=== PATIENT | male | born 1940 | race Caucasian/White ===

== ENCOUNTER 2020-04-13 07:04 | Outpatient (REF) | payer MEDICARE, SELFPAY | END 2020-04-13 07:05 | disposition home or self-care (01) | LOC: HO.LAB 07:04 | PROVIDERS: Visit Provider Internal Medicine | DX: Z20.828 Contact with and (suspected) exposure to other viral communicable diseases (principal) | CPT/HCPCS: C9803; U0003 ==

== ENCOUNTER → 2020-06-28 10:11 | Outpatient (BNVA) | payer MEDICARE, SELFPAY | PROVIDERS: PCP Internal Medicine; Visit Provider Internal Medicine Pulmonary Disease ==

== ENCOUNTER 2020-06-28 10:30 | Outpatient (REF) | payer MEDICARE, SELFPAY ==
[2020-06-28 10:51] LABS: MANUAL DIFF FLAG NO
[2020-06-28 11:33] LABS: Glucose Urine UA NEG (NEG); Leukocyte Esterase Urine NEG (NEG); Nitrite Urine NEG (NEG); Specific Gravity - Urine 1.025 (1.005-1.025); Urine Blood TRACE (NEG); Urine Ketones NEG (NEG); Urine Protein NEG (NEG-TRACE)
[2020-06-28 11:41] LABS: Basophils Absolute Auto 0.1 X10*3/uL (0.0-0.2); Basophils Percent Auto 0.8 % (0-2); Eosinophils Absolute Auto 0.3 X10*3/uL (0.0-0.4); Eosinophils Percent Auto 4.3 % (0-4); Hematocrit 46.7 % (42-52); Hemoglobin 15.2 g/dl (14.0-18.0); Imm Gran Abs Auto 0.01 X10*3/uL (0.00-0.03); Imm Gran Pct Auto 0.1 % (0.0-0.4); Lymphocytes Absolute Auto 3.1 X10*3/uL (1.2-4.9); Mean Corpuscular HGB Conc 32.5 g/dl (31.0-36.0); Mean Corpuscular Hemoglobin 30.5 pg (27.0-33.0); Mean Corpuscular Volume 93.6 fL (80-98); Mean Platelet Volume 10.5 fL (9.4-12.4); Monocytes Absolute Auto 0.7 X10*3/uL (0.1-1.2); Monocytes Percent Auto 8.8 % (2-11); Neutrophils Absolute Auto 3.7 X10*3/uL (2.0-8.3); Platelet Count 238 X10*3/uL (160-400); Red Blood Count 4.99 X10*6/uL (4.60-5.80); Red Cell Distribution Width 13.5 % (11.0-16.0); White Blood Count 7.9 X10*3/uL (4.8-10.8)
[2020-06-28 11:49] LABS: Appearance Urine CLEAR; Color Urine YELLOW
[2020-06-28 12:00] LABS: RBC Urine 0-2 /HPF (0); WBC Urine 0-2 /HPF (0-4)
[2020-06-28 12:01] LABS: Mucus Urine 1+ /LPF
[2020-06-28 12:05] LABS: Alanine Aminotransferase 17 U/L (0-40); Albumin Level 4.5 g/dL (3.5-5.0); Alkaline Phosphatase 76 U/L (39-117); Anion Gap 14 (12-20); Aspartate Amino Transferase 19 U/L (5-37); Bilirubin Total 0.7 mg/dL (0.0-1.0); Blood Urea Nitrogen 24 mg/dL (9-16); Calcium 9.3 mg/dL (8.4-10.2); Carbon Dioxide 29 mmol/L (22-29); Chloride 104 mmol/L (96-108); Cholesterol 127 mg/dL; Estimated Glomerular Filt Rate > 60; HDL Cholesterol 56 mg/dL; LDL Cholesterol Calculated 60 mg/dl; Potassium 4.5 mmol/L (3.3-5.1); Sodium 142 mmol/L (135-145); Total Protein 7.1 g/dL (6.5-8.0); Triglycerides 56 mg/dL
[2020-06-28 12:26] LABS: PSA,Total (Free>4and<10) 0.41 ng/mL (0.00-4.00)
[2020-06-28 12:34] LABS: Reflex LDLD? No
[2020-06-28 12:50] LABS: Glucose Fasting 100 mg/dL (60-99)
== END 2020-06-28 10:31 | disposition home or self-care (01) ==
LOC: HO.LNP 10:30
PROVIDERS: Visit Provider Internal Medicine
DX: Z12.5 Encounter for screening for malignant neoplasm of prostate (principal); R06.00 Dyspnea, unspecified; J45.20 Mild intermittent asthma, uncomplicated; E78.00 Pure hypercholesterolemia, unspecified; R79.9 Abnormal finding of blood chemistry, unspecified; R31.9 Hematuria, unspecified; I73.9 Peripheral vascular disease, unspecified
CPT/HCPCS: 80053; 80061; 81001; 81003; 84153; 85025; 99212

== ENCOUNTER → 2020-08-18 09:19 | Outpatient (REF) | payer MEDICARE, SELFPAY ==
--- NOTE | 2020-08-18 09:22 | CA_ITS ---
Transthoracic Echocardiogram Patient (Last, First, Middle): Nakul Aguilera J Gender: Male Date of : 1940 Age: 79 Procedure Date: 08/18/2020 Procedure Type: Transthoracic Echocardiogram Location: OP Height: 187.96 cm Weight: 112.04 kg BSA: 2.38 m2 Heart Rate: bpm BP: 110 / 70 mmHg Pouch Maker: BLANCA Referring MD: Tyrone Escamilla MD Symptoms: R06.00 - Dyspnea, unspecified Study Quality: Fair ECG Rhythm: Sinus Conclusions: - The left ventricular systolic function is normal. The visually estimated ejection fraction is between 60-65%. - No obvious valvular pathology seen on this study. Findings Left Ventricle Normal left ventricular cavity size. There is mildly increased left ventricular wall thickness. The left ventricular systolic function is normal. The visually estimated ejection fraction is between 60-65%. There is no evidence of regional wall motion abnormalities. Diastolic function is normal for age. Right Ventricle Normal right ventricular cavity size and systolic function. Atria Both atria are normal in size. Aortic Valve There is a normal trileaflet aortic valve. There is no aortic valve stenosis. There is trace (trivial) aortic valve regurgitation. Mitral Valve The mitral valve appears normal. There is no mitral valve regurgitation. There is no mitral valve stenosis. Pulmonic Valve The pulmonic valve was not well visualized. Tricuspid Valve The tricuspid valve was not well visualized. There is trace tricuspid valve regurgitation. The pulmonary artery systolic pressure is normal. Great Vessels The aortic annulus, sinuses of valsalva, and asc aorta are normal in size. Venous The inferior vena cava is normal in size and collapses greater than 50% with inspiration. Pericardium/Pleural There is no evidence of pericardial effusion. Prior Study Comparison No prior study available for comparison. Recommendations, Care & Conclusions No obvious valvular pathology seen on this study. Measurements 2D Linear Measurements IVSd: 1.01 0.6-0.9/0.6-1.0 cm LVIDd: 3.95 3.9-5.3/4.2-5.9 cm LVIDd Index: 1.66 2.4-3.2/2.2-3.1 cm/m2 LVIDs: 2.59 2.0-3.6 cm LVPWd: 1.04 0.7-1.1 cm Ao Root: 3.60 2.1-3.5 cm LA Diam: 3.60 2.7-3.8/3.0-4.0 cm LAIDs Index: 1.51 1.5-2.3 cm/m2 LV Mass: 160.54 67-162/88-224 g LV Mass Index: 67.46 43-95/49-115 g/m2 LVOT Diam: 2.20 3.0+(-)1.3 cm 2D Systolic Function EF 4C: 67.70 >55% EF 2C: 59.00 >55% EF BiP: 63.50 >55% Mitral Valve MV Pk E: 0.55 MV PK A: 0.79 MV Decel Time: 310.00 E/A: 0.70 E'Lateral: 9.19 E'Medial: 7.16 E/E' Med: 7.70 E/E' Lat: 6.00 PHT: 91.00 MVA PHT: 2.42 Decel Taney: 1.78 Aortic Valve AoV Pk Vinod: 1.48 AoV Mn Vinod: 1.00 AoV VTI: 0.33 AoV Pk Grad: 9.00 Aov Mn Grad: 4.00 VESTA Cont.VTI: 3.02 LVOT LVOT Pk Vinod: 1.12 LVOT Mn Vinod: 0.69 LVOT VTI: 0.26 LVOT Pk Grad: 5.00 LVOT Mn Grad: 2.00 LVOT Diam: 2.20 LVOT Area: 3.80 Diastolic Function MV Pk E: 0.55 MV Pk A: 0.79 E/A: 0.70 E'Medial: 7.16 E/E' Med: 7.70 E' Laterial: 9.19 E/E' Lat: 6.00 Tricuspid Valve TR Pk Vinod: 2.58 TR Pk Grad: 27.00 RA Press: 3.00 RVSP: 30.00 Great Vessels Aorta Ao Root-2D: 3.60 2.0-3.7 cm Ao Asc: 3.20 2.1-3.4 cm Updated in Other Vendor System with Status of Final Brett Quintanilla MD electronically signed on 08/19/2020 2:53:43 PM with status of Final
== END ==
LOC: HO.CARD 09:19
PROVIDERS: PCP Internal Medicine; Visit Provider Internal Medicine Pulmonary Disease
DX: R06.00 Dyspnea, unspecified (principal)
CPT/HCPCS: 93306

== ENCOUNTER → 2020-08-30 11:33 | Outpatient (BNVA) | payer MEDICARE, SELFPAY | PROVIDERS: PCP Internal Medicine; Visit Provider Internal Medicine Pulmonary Disease | DX: J45.20 Mild intermittent asthma, uncomplicated (principal); R06.00 Dyspnea, unspecified | CPT/HCPCS: 99212 ==

== ENCOUNTER 2021-01-12 10:25 | Outpatient (REF) | payer MEDICARE, SELFPAY ==
[2021-01-12 11:57] LABS: Alanine Aminotransferase 18 U/L (0-40); Albumin Level 4.5 g/dL (3.5-5.0); Alkaline Phosphatase 74 U/L (39-117); Aspartate Amino Transferase 19 U/L (5-37); Bilirubin Direct 0.3 mg/dL (0.0-0.5); Bilirubin Total 0.8 mg/dL (0.0-1.0); Cholesterol 133 mg/dL; HDL Cholesterol 59 mg/dL; LDL Cholesterol Calculated 61 mg/dl; Total Protein 7.1 g/dL (6.5-8.0); Triglycerides 65 mg/dL
[2021-01-12 12:13] LABS: Reflex LDLD? No
== END 2021-01-12 10:26 | disposition home or self-care (01) ==
LOC: HO.LNP 10:25
PROVIDERS: Visit Provider Internal Medicine
DX: E78.00 Pure hypercholesterolemia, unspecified (principal)
CPT/HCPCS: 80061; 80076

== ENCOUNTER 2021-06-29 11:19 | Outpatient (REF) | payer MEDICARE, SELFPAY ==
[2021-06-29 11:24] LABS: MANUAL DIFF FLAG NO
[2021-06-29 12:07] LABS: Basophils Absolute Auto 0.1 X10*3/uL (0.0-0.2); Basophils Percent Auto 0.9 % (0-2); Eosinophils Absolute Auto 0.3 X10*3/uL (0.0-0.4); Eosinophils Percent Auto 2.7 % (0-4); Hematocrit 46.7 % (42.0-52.0); Hemoglobin 15.2 g/dl (14.0-18.0); Imm Gran Abs Auto 0.03 X10*3/uL (0.00-0.03); Imm Gran Pct Auto 0.3 % (0.0-0.4); Lymphocytes Absolute Auto 3.3 X10*3/uL (1.2-4.9); Mean Corpuscular HGB Conc 32.5 g/dl (31.0-36.0); Mean Corpuscular Hemoglobin 30.2 pg (27.0-33.0); Mean Corpuscular Volume 92.8 fL (80.0-98.0); Mean Platelet Volume 10.5 fL (9.4-12.4); Monocytes Absolute Auto 0.8 X10*3/uL (0.1-1.2); Monocytes Percent Auto 7.9 % (2-11); Neutrophils Absolute Auto 5.8 x10*3/uL (2.0-8.3); Neutrophils Percent Auto 56.2 % (45-73); Platelet Count 259 X10*3/uL (160-400); Red Blood Count 5.03 X10*6/uL (4.60-5.80); Red Cell Distribution Width 14.1 % (11.0-16.0); White Blood Count 10.3 X10*3/uL (4.8-10.8)
[2021-06-29 12:27] LABS: Alanine Aminotransferase 13 U/L (0-40); Albumin Level 4.6 g/dL (3.5-5.0); Alkaline Phosphatase 75 U/L (39-117); Anion Gap 14 (12-20); Aspartate Amino Transferase 21 U/L (5-37); Bilirubin Total 0.9 mg/dL (0.0-1.0); Blood Urea Nitrogen 28 mg/dL (9-16); Calcium 9.8 mg/dL (8.4-10.2); Carbon Dioxide 29 mmol/L (22-29); Chloride 103 mmol/L (96-108); Cholesterol 177 mg/dL; Estimated Glomerular Filt Rate > 60; Glucose Fasting 94 mg/dL (60-99); HDL Cholesterol 61 mg/dL; LDL Cholesterol Calculated 101 mg/dl; Potassium 4.2 mmol/L (3.3-5.1); Sodium 142 mmol/L (135-145); Total Protein 6.8 g/dL (6.5-8.0); Triglycerides 79 mg/dL
[2021-06-29 12:40] LABS: PSA,Total (Free>4and<10) 0.44 ng/mL (0.00-4.00)
== END 2021-06-29 11:20 | disposition home or self-care (01) ==
LOC: HO.LNP 11:19
PROVIDERS: PCP Internal Medicine; Visit Provider Internal Medicine
DX: Z12.5 Encounter for screening for malignant neoplasm of prostate (principal); E78.00 Pure hypercholesterolemia, unspecified; R31.9 Hematuria, unspecified
CPT/HCPCS: 80053; 80061; 84153; 85025

== ENCOUNTER 2021-07-07 15:10 | Outpatient (REF) | payer MEDICARE, SELFPAY ==
[2021-07-07 15:27] LABS: Appearance Urine CLEAR; Color Urine YELLOW; Glucose Urine UA NEG (NEG); Leukocyte Esterase Urine NEG (NEG); Nitrite Urine NEG (NEG); Specific Gravity - Urine >= 1.030 (1.005-1.025); Urine Blood NEG (NEG); Urine Ketones NEG (NEG); Urine Protein NEG (NEG-TRACE)
[2021-07-07 15:36] LABS: RBC Urine 0 /HPF (0); WBC Urine 0-2 /HPF (0-4)
== END 2021-07-07 15:11 | disposition home or self-care (01) ==
LOC: HO.LNP 15:10
PROVIDERS: Visit Provider Internal Medicine
DX: R31.9 Hematuria, unspecified (principal); E78.00 Pure hypercholesterolemia, unspecified
CPT/HCPCS: 81001; 87086

== ENCOUNTER 2021-10-09 10:44 | Outpatient (REF) | payer MEDICARE, SELFPAY ==
[2021-10-09 11:17] LABS: Blood Urea Nitrogen 29 mg/dL (9-16); Estimated Glomerular Filt Rate > 60
== END 2021-10-09 10:45 | disposition home or self-care (01) ==
LOC: HO.LNP 10:44
PROVIDERS: Visit Provider Internal Medicine
DX: R79.9 Abnormal finding of blood chemistry, unspecified (principal)
CPT/HCPCS: 82565; 84520

== ENCOUNTER 2022-01-09 10:36 | Outpatient (REF) | payer MEDICARE, SELFPAY ==
[2022-01-09 10:58] LABS: Alanine Aminotransferase 17 U/L (0-40); Albumin Level 4.2 g/dL (3.5-5.0); Alkaline Phosphatase 64 U/L (39-117); Aspartate Amino Transferase 21 U/L (5-37); Bilirubin Direct 0.2 mg/dL (0.0-0.5); Bilirubin Total 0.5 mg/dL (0.0-1.0); Cholesterol 159 mg/dL; HDL Cholesterol 51 mg/dL; LDL Cholesterol Calculated 89 mg/dl; Total Protein 6.7 g/dL (6.5-8.0); Triglycerides 96 mg/dL
[2022-01-09 12:40] LABS: Reflex LDLD? No
== END 2022-01-09 10:37 | disposition home or self-care (01) ==
LOC: HO.LNP 10:36
PROVIDERS: Visit Provider Internal Medicine
DX: E78.00 Pure hypercholesterolemia, unspecified (principal)
CPT/HCPCS: 80061; 80076

== ENCOUNTER 2022-02-28 15:15 | Outpatient (REF) | payer MEDICARE, SELFPAY ==
--- NOTE | ~2022-02-28 | US_ITS ---
EXAMINATION: US EXTRACRANIAL CAROTID DUPLEX, BILATERAL CLINICAL INFORMATION: Carotid stenosis COMPARISON: 12/29/2018 TECHNIQUE: Real-time ultrasound and Doppler techniques (integrating B-mode 2-D vascular images, Doppler spectral analysis and color-flow Doppler imaging) were utilized to interrogate the extracranial carotid arteries, the vertebral arteries and proximal subclavian arteries bilaterally. The degree of stenosis is determined by criteria similar to NASCET. FINDINGS: Right Side: 1. There is mild atherosclerotic plaque seen in the bifurcation/proximal ICA region. 2. The common carotid artery PSV proximally is 99.3 cm/s and distally 71.9 cm/s. 3. The proximal internal carotid artery velocities are 71.3 cm/s systolic and 26.3 cm/s diastolic. 4. The proximal external carotid artery PSV is 98.2 cm/s. 5. The vertebral artery shows antegrade flow. 6. The subclavian artery waveforms are normal. Left Side: 1. There is mild atherosclerotic plaque seen in the bifurcation/proximal ICA region. 2. The common carotid artery PSV proximally is 96.2 cm/s and distally 68.0 cm/s. 3. The proximal internal carotid artery velocities are 60.9 cm/s systolic and 13.3 cm/s diastolic. 4. The proximal external carotid artery PSV is 95.7 cm/s. 5. The vertebral artery shows antegrade flow. 6. The subclavian artery waveforms are normal. US/US carotid duplex BI IMPRESSION: 1. RIGHT: Minimal, non-hemodynamically significant stenosis of the proximal right internal carotid artery corresponding to a 0-49% stenosis by velocity criteria. 2. LEFT: Minimal, non-hemodynamically significant stenosis of the proximal left internal carotid artery corresponding to a 0-49% stenosis by velocity criteria. 3. There is no change in the category severity of disease when compared to the previous study dated 12/29/2018.
== END 2022-02-28 15:16 | disposition home or self-care (01) ==
LOC: HO.US 15:15
PROVIDERS: PCP Internal Medicine; Visit Provider Internal Medicine
DX: I65.23 Occlusion and stenosis of bilateral carotid arteries (principal)
CPT/HCPCS: 93880

== ENCOUNTER 2022-04-17 10:57 | Outpatient (REF) | payer MEDICARE, SELFPAY ==
[2022-04-17 12:27] LABS: Blood Urea Nitrogen 21 mg/dL (9-16); Estimated Glomerular Filt Rate > 60
== END 2022-04-17 10:58 | disposition home or self-care (01) ==
LOC: HO.LNP 10:57
PROVIDERS: Visit Provider Internal Medicine
DX: R79.9 Abnormal finding of blood chemistry, unspecified (principal)
CPT/HCPCS: 82565; 84520

== ENCOUNTER 2022-07-06 11:22 | Outpatient (REF) | payer MEDICARE, SELFPAY ==
[2022-07-06 11:26] LABS: MANUAL DIFF FLAG NO
[2022-07-06 11:55] LABS: Appearance Urine Clear; Color Urine Yellow; Glucose Urine UA Negative (Negative); Leukocyte Esterase Urine Negative (Negative); Nitrite Urine Negative (Negative); Specific Gravity - Urine 1.025 (1.005-1.025); Urine Blood Negative (Negative); Urine Ketones Negative (Negative); Urine Protein Negative (Neg-Trace)
[2022-07-06 11:59] LABS: Basophils Absolute Auto 0.1 X10*3/uL (0.0-0.2); Basophils Percent Auto 0.8 % (0-2); Eosinophils Absolute Auto 0.4 X10*3/uL (0.0-0.4); Eosinophils Percent Auto 4.4 % (0-4); Hematocrit 46.5 % (42.0-52.0); Hemoglobin 15.4 g/dl (14.0-18.0); Imm Gran Abs Auto 0.01 X10*3/uL (0.00-0.03); Imm Gran Pct Auto 0.1 % (0.0-0.4); Lymphocytes Percent Auto 34.2 % (20-40); Mean Corpuscular HGB Conc 33.1 g/dl (31.0-36.0); Mean Corpuscular Hemoglobin 30.3 pg (27.0-33.0); Mean Corpuscular Volume 91.4 fL (80.0-98.0); Mean Platelet Volume 10.8 fL (9.4-12.4); Monocytes Absolute Auto 0.7 X10*3/uL (0.1-1.2); Monocytes Percent Auto 7.8 % (2-11); Neutrophils Absolute Auto 4.6 x10*3/uL (2.0-8.3); Neutrophils Percent Auto 52.7 % (45-73); Platelet Count 231 X10*3/uL (160-400); Red Blood Count 5.09 X10*6/uL (4.60-5.80); Red Cell Distribution Width 13.3 % (11.0-16.0); White Blood Count 8.8 X10*3/uL (4.8-10.8)
[2022-07-06 12:00] LABS: Bacteria Urine None Seen (None Seen); Hyaline Casts Urine 0-2 /LPF (0-2); RBC Urine 0-2 /HPF (0-2); Squamous Epithelial Cell Urine 0-2 /HPF (0-2); WBC Urine 0-5 /HPF (0-5)
[2022-07-06 12:31] LABS: Alanine Aminotransferase 11 U/L (0-40); Albumin Level 4.3 g/dL (3.5-5.0); Alkaline Phosphatase 73 U/L (39-117); Anion Gap 12 (12-20); Aspartate Amino Transferase 18 U/L (5-37); Blood Urea Nitrogen 28 mg/dL (9-16); Calcium 9.1 mg/dL (8.4-10.2); Carbon Dioxide 30 mmol/L (22-29); Chloride 104 mmol/L (96-108); Cholesterol 146 mg/dL; Estimated Glomerular Filt Rate > 60; Glucose Fasting 96 mg/dL (60-99); HDL Cholesterol 56 mg/dL; LDL Cholesterol Calculated 79 mg/dl; Potassium 4.1 mmol/L (3.3-5.1); Sodium 142 mmol/L (135-145); Total Protein 6.6 g/dL (6.5-8.0); Triglycerides 55 mg/dL
== END 2022-07-06 11:23 | disposition home or self-care (01) ==
LOC: HO.LNP 11:22
PROVIDERS: Visit Provider Internal Medicine
DX: R31.9 Hematuria, unspecified (principal); E78.00 Pure hypercholesterolemia, unspecified; Z12.5 Encounter for screening for malignant neoplasm of prostate
CPT/HCPCS: 80053; 80061; 81001; 84153; 85025

== ENCOUNTER 2022-08-13 10:32 | Outpatient (REF) | payer MEDICARE, SELFPAY ==
[2022-08-13 11:12] LABS: Blood Urea Nitrogen 23 mg/dL (9-16); Estimated Glomerular Filt Rate > 60
== END 2022-08-13 10:33 | disposition home or self-care (01) ==
LOC: HO.LNP 10:32
PROVIDERS: Visit Provider Internal Medicine
DX: R79.9 Abnormal finding of blood chemistry, unspecified (principal)
CPT/HCPCS: 82565; 84520

== ENCOUNTER 2023-02-13 10:11 | Outpatient (AMB) | payer MEDICARE, SELFPAY ==
[2023-02-13 10:27] VITALS: BP 112/60; PULSE 75; TEMP 36.6; O2SAT 95; BMI 28.6
--- NOTE | 2023-02-13 10:27 | MHC.OFFWIV ---
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 Patient Tobacco Use Status: Former Tobacco user Allergies No Known Allergies Allergy (Verified 02/13/23 10:31) Do you need a note to return to daycare/school/sports/work: No HPI HPI Comments History of Present Illness Details This is an 82-year-old male with past medical history of hyperlipidemia presenting for evaluation of a cough and chest congestion that he has had for the past 1 week. Patient is not taking any ltgo-hji-wonxcec medications for treatment of his symptoms and states his cough is mostly during the day. Patient denies having any fevers, chills, ear pain, sore throat, difficulty swallowing, shortness of breath or chest pain. Patient is not aware of his COVID vaccine status and has not yet received his influenza immunization this year. [facility] Social History (Updated 06/28/20 @ 10:23 by Kiarra Little MA) Patient Tobacco Use Status: Former Tobacco user Review of Systems Const Denies chills, Denies fatigue, Denies fever(s) and Denies malaise Eyes Reports no additional complaints ENT Reports no additional complaints Card Reports no additional complaints and Denies dyspnea Resp Reports cough and Denies dyspnea GI Reports no additional complaints Musc Reports no additional complaints Skin/Breast Reports system reviewed and no additional complaints, except as documented Psych Reports no additional complaints Endo Denies fatigue Physical Exam Vital Signs: Last Vital Signs Temp 98 F 02/13/23 10:27 Pulse 75 02/13/23 10:27 BP 112/60 02/13/23 10:27 Pulse Ox 95 02/13/23 10:27 Oxygen Delivery Method Room Air 02/13/23 10:27 BMI result Body Mass Index 28.6 Patient is afebrile and is not hypoxic. Const General: cooperative, healthy appearing, comfortable, no acute distress and well developed; No ill appearing Nutritional Appearance: average body habitus Orientation/consciousness: patient oriented x3 Limitations: no limitations HEENT Head: Yes normal to inspection Ears: hearing grossly normal bilaterally, external ears normal and TM's normal bilaterally General nose exam: Normal external nose present and No nasal discharge present Face and sinus: Yes normal facial exam Mouth: Normal oral and palatal mucosa present, oropharynx normal and moist mucous membranes Throat: Yes posterior oropharynx normal Eyes General: appearance normal, both eyes and all related structures Conjunctivae: conjunctivae normal Sclerae: sclerae normal Corneas: corneas normal Pupils: Equal, round and reactive pupils present EOM: EOMs intact bilaterally Neck Lymphatic: no lymphadenopathy noted Resp Effort & Inspection: normal respiratory effort, able to speak in complete sentences, no audible wheezes and no respiratory distress Auscultation: clear to auscultation bilaterally Cardio Rate: regular rate Rhythm: regular rhythm Skin General skin exam: no rashes or lesions noted Neuro General: patient oriented x3 Cranial nerves: Yes Equal, round and reactive pupils present Psych Appearance: grossly normal Mental Status: mental status grossly normal Insight: Good insight present (Psych) Judgement: Good judgement present (Psych) Results Reviewed Results Reviewed: Testing for COVID-19 is negative. Assessment & Plan Assessment & Plan (1) Cough: Comment: COVID 19 ordered and pending. Code(s): R05.9 - Cough, unspecified Orders: Orders BinaxNOW Covid-19 Ag Today R05.9 - Cough, unspecified Patient Instructions: Negative testing; Tylenol or ibuprofen as needed for symptom relief and increase fluids daily. Please follow-up with primary care within 7 days if your symptoms do not resolve. Coding Level of Care Code New Pt Level 4 (20699) Diagnoses Cough R05.9 Time Spent (min) 20
== END 2023-02-13 11:21 | disposition home or self-care (01) ==
PROVIDERS: PCP Internal Medicine; Visit Provider Physician Assistant
DX: R05.9 Cough, unspecified (principal)
CPT/HCPCS: 99204

== ENCOUNTER 2023-02-13 11:00 | Outpatient (REF) | payer MEDICARE, SELFPAY ==
[2023-02-13 11:34] LABS: Binax Internal Control QC Valid; Binax Now Covid-19 Ag Negative (Negative)
== END 2023-02-13 11:01 | disposition home or self-care (01) ==
LOC: HO.HMGCLDS 11:00
PROVIDERS: PCP Internal Medicine; Visit Provider Physician Assistant
DX: R05.9 Cough, unspecified (principal)
CPT/HCPCS: 87811; C9803

== ENCOUNTER 2023-07-09 11:36 | Outpatient (REF) | payer MEDICARE, SELFPAY ==
[2023-07-09 11:38] LABS: MANUAL DIFF FLAG NO
[2023-07-09 12:00] LABS: Basophils Absolute Auto 0.1 X10*3/uL (0.0-0.2); Basophils Percent Auto 0.7 % (0-2); Eosinophils Absolute Auto 0.4 X10*3/uL (0.0-0.4); Eosinophils Percent Auto 4.7 % (0-4); Hematocrit 46.8 % (42.0-52.0); Hemoglobin 15.3 g/dl (14.0-18.0); Imm Gran Abs Auto 0.02 X10*3/uL (0.00-0.03); Imm Gran Pct Auto 0.2 % (0.0-0.4); Lymphocytes Absolute Auto 3.2 X10*3/uL (1.2-4.9); Mean Corpuscular HGB Conc 32.7 g/dl (31.0-36.0); Mean Corpuscular Hemoglobin 30.2 pg (27.0-33.0); Mean Corpuscular Volume 92.3 fL (80.0-98.0); Mean Platelet Volume 9.9 fL (9.4-12.4); Monocytes Absolute Auto 0.7 X10*3/uL (0.1-1.2); Monocytes Percent Auto 8.6 % (2-11); Neutrophils Absolute Auto 4.2 x10*3/uL (2.0-8.3); Neutrophils Percent Auto 48.8 % (45-73); Platelet Count 261 X10*3/uL (160-400); Red Blood Count 5.07 X10*6/uL (4.60-5.80); Red Cell Distribution Width 13.4 % (11.0-16.0); White Blood Count 8.5 X10*3/uL (4.8-10.8)
[2023-07-09 12:07] LABS: Appearance Urine Clear; Color Urine Yellow; Glucose Urine UA Negative (Negative); Leukocyte Esterase Urine Negative (Negative); Nitrite Urine Negative (Negative); PH 5.5 (5.0-9.0); Specific Gravity - Urine 1.025 (1.005-1.025); Urine Blood Negative (Negative); Urine Ketones Negative (Negative); Urine Protein Negative (Neg-Trace)
[2023-07-09 12:10] LABS: Alanine Aminotransferase 13 U/L (0-40); Albumin Level 4.3 g/dL (3.5-5.0); Alkaline Phosphatase 70 U/L (39-117); Anion Gap 12 (12-20); Aspartate Amino Transferase 21 U/L (5-37); Bilirubin Total 0.5 mg/dL (0.0-1.0); Blood Urea Nitrogen 21 mg/dL (9-16); Calcium 9.5 mg/dL (8.4-10.2); Carbon Dioxide 28 mmol/L (22-29); Chloride 106 mmol/L (96-108); Cholesterol 136 mg/dL (<200); Estimated Glomerular Filt Rate > 60; Glucose Fasting 101 mg/dL (60-99); HDL Cholesterol 57 mg/dL (>40); LDL Cholesterol Calculated 65 mg/dL (<100); Potassium 4.1 mmol/L (3.3-5.1); Sodium 142 mmol/L (135-145); Total Protein 7.1 g/dL (6.5-8.0); Triglycerides 73 mg/dL (<150)
[2023-07-09 12:11] LABS: Bacteria Urine None Seen (None Seen); Hyaline Casts Urine 0-2 /LPF (0-2); RBC Urine 0-2 /HPF (0-2); Squamous Epithelial Cell Urine 0-2 /HPF (0-2); WBC Urine 0-5 /HPF (0-5)
[2023-07-09 12:26] LABS: PSA,Total (Free>4and<10) 0.44 ng/mL (0.00-4.00)
== END 2023-07-09 11:37 | disposition home or self-care (01) ==
LOC: HO.LNP 11:36
PROVIDERS: Visit Provider Internal Medicine
DX: Z12.5 Encounter for screening for malignant neoplasm of prostate (principal); E78.00 Pure hypercholesterolemia, unspecified
CPT/HCPCS: 80053; 80061; 81001; 84153; 85025

== ENCOUNTER 2024-01-16 11:58 | Outpatient (REF) | payer MEDICARE, SELFPAY ==
[2024-01-16 12:23] LABS: Alanine Aminotransferase 15 U/L (0-40); Albumin Level 4.4 g/dL (3.5-5.0); Alkaline Phosphatase 62 U/L (39-117); Aspartate Amino Transferase 22 U/L (5-37); Bilirubin Direct 0.2 mg/dL (0.0-0.5); Bilirubin Total 0.6 mg/dL (0.0-1.0); Cholesterol 135 mg/dL (<200); HDL Cholesterol 59 mg/dL (>40); LDL Cholesterol Calculated 64 mg/dL (<100); Triglycerides 61 mg/dL (<150)
[2024-01-16 12:50] LABS: Reflex LDLD? No
== END 2024-01-16 11:59 | disposition home or self-care (01) ==
LOC: HO.LNP 11:58
PROVIDERS: Visit Provider Internal Medicine
DX: E78.00 Pure hypercholesterolemia, unspecified (principal)
CPT/HCPCS: 80061; 80076

== ENCOUNTER 2024-07-13 11:53 | Outpatient (REF) | payer MEDICARE, SELFPAY ==
[2024-07-13 11:57] LABS: MANUAL DIFF FLAG NO
[2024-07-13 12:24] LABS: Appearance Urine Clear; Color Urine Yellow; Glucose Urine UA Negative (Negative); Leukocyte Esterase Urine Negative (Negative); Nitrite Urine Negative (Negative); PH 5.5 (5.0-9.0); Specific Gravity - Urine 1.025 (1.005-1.025); Urine Blood Negative (Negative); Urine Ketones Negative (Negative); Urine Protein Negative (Neg-Trace)
[2024-07-13 12:25] LABS: Basophils Absolute Auto 0.1 X10*3/uL (0.0-0.2); Eosinophils Absolute Auto 0.4 X10*3/uL (0.0-0.4); Eosinophils Percent Auto 4.6 % (0-4); Hematocrit 45.4 % (42.0-52.0); Hemoglobin 15.1 g/dl (14.0-18.0); Imm Gran Abs Auto 0.02 X10*3/uL (0.00-0.03); Imm Gran Pct Auto 0.2 % (0.0-0.4); Lymphocytes Absolute Auto 2.9 X10*3/uL (1.2-4.9); Lymphocytes Percent Auto 34.8 % (20-40); Mean Corpuscular HGB Conc 33.3 g/dl (31.0-36.0); Mean Corpuscular Hemoglobin 30.6 pg (27.0-33.0); Mean Corpuscular Volume 91.9 fL (80.0-98.0); Mean Platelet Volume 11.1 fL (9.4-12.4); Monocytes Absolute Auto 0.7 X10*3/uL (0.1-1.2); Monocytes Percent Auto 8.5 % (2-11); Neutrophils Absolute Auto 4.2 x10*3/uL (2.0-8.3); Neutrophils Percent Auto 50.9 % (45-73); Platelet Count 213 X10*3/uL (160-400); Red Blood Count 4.94 X10*6/uL (4.60-5.80); Red Cell Distribution Width 13.2 % (11.0-16.0); White Blood Count 8.2 X10*3/uL (4.8-10.8)
[2024-07-13 12:28] LABS: Bacteria Urine None Seen (None Seen); Hyaline Casts Urine 0-2 /LPF (0-2); RBC Urine 0-2 /HPF (0-2); Squamous Epithelial Cell Urine 0-2 /HPF (0-2); WBC Urine 0-5 /HPF (0-5)
[2024-07-13 12:38] LABS: Alanine Aminotransferase 13 U/L (0-40); Albumin Level 4.3 g/dL (3.5-5.0); Alkaline Phosphatase 67 U/L (39-117); Anion Gap 11 (12-20); Aspartate Amino Transferase 24 U/L (5-37); Bilirubin Total 0.8 mg/dL (0.0-1.0); Blood Urea Nitrogen 27 mg/dL (9-16); Calcium 9.1 mg/dL (8.4-10.2); Carbon Dioxide 25 mmol/L (22-29); Chloride 110 mmol/L (96-108); Cholesterol 146 mg/dL (<200); Estimated Glomerular Filt Rate > 60; Glucose Fasting 94 mg/dL (60-99); HDL Cholesterol 56 mg/dL (>40); LDL Cholesterol Calculated 77 mg/dL (<100); Potassium 4.1 mmol/L (3.3-5.1); Sodium 142 mmol/L (135-145); Total Protein 7.3 g/dL (6.5-8.0); Triglycerides 69 mg/dL (<150)
[2024-07-13 12:54] LABS: PSA,Total (Free>4and<10) 0.52 ng/mL (0.00-4.00)
--- OUTSIDE RECORDS SUMMARY | 2024-07-13 13:37 | XMS_ITS | Clinical Summary ---
Author Organization [facility] Address [address] [place] [address] Care Team Providers Care Corporate Director Of Human Resources Name Role Phone Skinny Morales MD Primary Care Provider [phone] Allergies No known active allergies Medications Medication Sig Dispensed Refills Start Date End Date Status PARoxetine (PAXIL) 40 MG tablet Take 40 mg by mouth every morning. 3 02/02/2018 Active Social History Tobacco Use Types Packs/Day Years Used Date Smoking Tobacco: Former Smokeless Tobacco: Former Sex and Gender Information Value Date Recorded Sex Assigned at Not on file Gender Identity Not on file Sexual Orientation Not on file Last Filed Vital Signs Vital Sign Reading Time Taken Comments Blood Pressure 120/78 05/30/2018 11:09 AM EST Pulse - - Temperature - - Respiratory Rate - - Oxygen Saturation - - Inhaled Oxygen Concentration - - Weight 107.5 kg (237 lb) 05/30/2018 11:09 AM EST Height - - Body Mass Index - - Plan of Treatment Health Maintenance Due Date Last Done Comments COVID-19 Vaccine (#1) 03/24/1941 Depression Screening 1953 Preventative Health Evaluation 09/22/1959 DTap / Tdap / Td (1 - Tdap) 1960 Shingrix-Zoster Vaccine (1 of 2) 09/22/1991 Fall Risk Assessment 2006 Pneumococcal Vaccine (1 of 1 - PCV) 2006 RSV Adult > 60+ Yrs or Pregn ant (1 - 1-dose 75+ series) 2016 Influenza Vaccine (#1) 2024 Hepatitis B Vaccines Aged Out No long er eligible based on patient's age to complete this topic RSV Ped < 20 months Aged Out No longe r eligible based on patient's age to complete this topic Care Teams Corporate Director Of Human Resources Relationship Specialty Start Date End Date Skinny Morales MD [address] [place] [address] PCP - General Internal Medicine 02/14/18
--- OUTSIDE RECORDS SUMMARY | 2024-07-13 13:37 | XMS_ITS ---
Author Organization Skinny Morales MD Address [address] [place], [place] [id number] Care Team Providers Care Coder Operator Name Role Phone Andrew Skinny Primary Care Provider Results Component Value Reference Range Notes Complete Blood Count Auto Di ff (Not yet reviewed by provider) Interpretation: Performing Lab:[facility], [address] [place] [phone] Notes/Report: White Blood Count 8.2 4.8-10.8 X10*3/uL Red Blood Count 4.94 4.60-5.80 X10*6/uL Hemoglobin 15.1 14.0-18.0 g/dl Hematocrit 45.4 42.0-52.0 % Mean Corpuscular Volume 91.9 80.0-98.0 fL Mean Corpuscular Hemoglobin 30.6 27.0-33.0 pg Mean Corpuscular HGB Conc 33.3 31.0-36.0 g/dl Red Cell Distribution Width 13.2 11.0-16.0 % Platelet Count 213 160-400 X10*3/uL Mean Platelet Volume 11.1 9.4-12.4 fL Neutrophils Percent Auto 50.9 45-73 % Imm Gran Pct Auto 0.2 0.0-0.4 % Lymphocytes Percent Auto 34.8 20-40 % Monocytes Percent Auto 8.5 2-11 % Eosinophils Percent Auto 4.6 0-4 % Basophils Percent Auto 1.0 0-2 % NRBC Pct Auto 0.0 0.0-0.2 /100WBC Neutrophils Absolute Auto 4.2 2.0-8.3 x10*3/u L Imm Gran Abs Auto 0.02 0.00-0.03 X10*3/uL Lymphocytes Absolute Auto 2.9 1.2-4.9 X10*3/u L Monocytes Absolute Auto 0.7 0.1-1.2 X10*3/uL Eosinophils Absolute Auto 0.4 0.0-0.4 X10*3/u L Basophils Absolute Auto 0.1 0.0-0.2 X10*3/uL NRBC Abs Auto 0.000 0.0-0.012 X10*3/uL Comprehensive [place]. Panel Fa st (Not yet reviewed by provider) Interpretation: Performing Lab:[facility], [address] [place] [phone] Notes/Report: Sodium 142 135-145 mmol/L Potassium 4.1 3.3-5.1 mmol/L Chloride 110 96-108 mmol/L Carbon Dioxide 25 22-29 mmol/L Anion Gap 11 12-20 Blood Urea Nitrogen 27 9-16 mg/dL Creatinine 0.79 0.5-1.4 mg/dL Estimated Glomerular Filt Rate > 60 Chronic Kidney Disease: Estimated GFR < 60 mL/min/1.73m2 Severe Kidney Disease: Estimated GFR < 15 mL/min/1.73m2 Glucose Fasting 94 60-99 mg/dL Calcium 9.1 8.4-10.2 mg/dL Bilirubin Total 0.8 0.0-1.0 mg/dL Aspartate Amino Transferase 24 5-37 U/L Alanine Aminotransferase 13 0-40 U/L Total Protein 7.3 6.5-8.0 g/dL Albumin Level 4.3 3.5-5.0 g/dL Alkaline Phosphatase 67 39-117 U/L PSA,Total (Free>4and<10) (No t yet reviewed by provider) Interpretation: Performing Lab:[address] [phone] Notes/Report: PSA,Total (Free>4and<10) 0.52 0.00-4.00 ng/mL A Free PSA was not performed: The percentage of Free PSA can be used to enhance the differentiation of prostate cancer from benign prostatic disease in subjects whose PSA levels are between 4.0 and 10.0 ng/mL. For subjects whose PSA levels are below 4.0 or above 10.0 ng/mL, the risk of prostate cancer is determined on the basis of the PSA alone. Therefore the % Free PSA is recommended only for those subjects whose PSA levels are between 4.0 and 10.0 ng/mL. PSA methodology: Mtz Alinity i Chemiluminescent Microparticle Immunoassay (CMIA) UA ClnCatch+Micro w/rflx Cul t (Not yet reviewed by provider) Interpretation: Performing Lab:[address] [phone] Notes/Report: Urine, Clean Catch Color Urine Yellow Appearance Urine Clear PH 5.5 5.0-9.0 Glucose Urine UA Negative Negative mg/dL Urine Blood Negative Negative Specific [place] - Urine 1.025 1.005-1.025 Urine Protein Negative Neg-Trace mg/dL Urine Ketones Negative Negative mg/dL Nitrite Urine Negative Negative Leukocyte Esterase Urine Negative Negative RBC Urine 0-2 0-2 /HPF WBC Urine 0-5 0-5 /HPF Squamous Epithelial Cell Urine 0-2 0-2 /HPF Bacteria Urine None Seen None Seen Hyaline Casts Urine 0-2 0-2 /LPF Lipid Panel Reviewed date:07/13/2024 12:40:52 PM Interpretation: Performing Lab:[address] [phone] Notes/Report: Triglycerides 69 <150 mg/dL Desirable Triglyceride: less than 150 mg/dL Borderline High Triglyceride 150-199 mg/dL High Triglyceride: 200-499 mg/dL Very High Triglyceride: greater than or equal to 5OO mg/dL Cholesterol 146 <200 mg/dL Desirable Cholesterol: less than 200 mg/dL Borderline High Cholesterol: 200-239 mg/dL High Cholesterol: greater than 239 mg/dL LDL Cholesterol Calculated 77 <100 mg/dL Desirable LDL: less than 100 mg/dL Near Optimal/Above Optimal LDL: 110-129 mg/dL Borderline High LDL: 130-159 mg/dL High LDL: 160-189 mg/dL Very High LDL: greater than or equal to 190 mg/dL HDL Cholesterol 56 >40 mg/dL Desirable HDL: greater than 40 mg/dL Note: This HDL assay may give artificially low results in patients with liver disease. REASON FOR VISIT yarly fasting labs Encounters Encounter Location Date Provider Diagnosis Skinny Morales MD [address] [facility] [address] [place] [phone] 07/13/2024 Skinny Morales Pure hypercholestero lemia E78.00 Assessments Encounter Date Diagnosis (ICD Code) Assessment Notes Treatment Notes Treatment Clinical Notes Section Notes 07/13/2024 Pure hypercholesterolemia (ICD-10 - E78.00) Plan Of Treatment Pending Test Test Name Order Date Complete Blood Count Auto Diff 5 Comprehensive [place]. Panel Fast 5 PSA,Total (Free>4and<10) 07/13/2024 UA ClnCatch+Micro w/rflx Cult 07/13/2024 Next Appt Details Provider Name:Skinny Templeton ier, 07/20/2024 01:00:00 PM, [address] [place] [address], Suite [facility], [place], [place], [phone], Progress Notes * Nakul UGARTEDOB: (83 yo M)Acc No.[id number]:07/13/2024 Progress Note Patient:?Nakul UGARTE Provider:?Skinny Morales MD :1940???Age:83 Y???Sex:Male Daniel e:07/13/2024 Address:[address] [place], [place] [phone] Subjective: * Chief Complaints: * ???1. Yarly fasting labs. * Medical History:? Objective: * Vitals:? Assessment: * Assessment: 1.?Pure hypercholesterolemia - E78.00 (Primary)??? Plan: * Treatment: * Procedure Codes:?72794 VENIP UNCT, ROUTINE* * * The named appointment provid er may or may not be the originator of this progress note, and it is not deemed complete until electronically signed by the appointment provider. Sign off status: Pending * Provider:?Skinny Morales MD Date:?0 07/13/2024 Generated for Nino duenas/Mariah/Guevaraitting on:?07/13/2024 01:37 PM EDT
--- OUTSIDE RECORDS SUMMARY | 2024-07-13 13:38 | XMS_ITS ---
Author Organization Skinny Morales MD Address [address] [place], [place] [id number] Care Team Providers Care Home Service Advisor Name Role Phone Skinny Morales Primary Care Provider Allergies No Known Allergies REASON FOR VISIT 6 month Medications Medication SIG (Take, Route, Frequency, Duration) Notes Start Date End Date Status PARoxetine HCl 40 MG TAKE [address] [facility] EVERY DAY IN THE MORNING for 90 Active Albuterol Sulfate HFA 108 (90 Base) MCG/ACT 1 puff as needed Inhalation every 4 hrs Not-Torres barth Aspir-81 81 MG 1 tablet Orally Once a day Active Furosemide 20 MG 1 tablet Orally Once a day for 30 day(s) Active Atorvastatin Calcium 40 MG TAKE 1 TABLET BY MOUTH EVERY DAY Active Vital Signs Blood pressure systolic 128 mm Hg 01/23/20 24 Blood pressure diastolic 74 mm Hg 024 Height 72 in 01/23/2024 Weight 233 lbs 01/23/2024 BMI 31.60 kg/m2 01/23/2024 Encounters Encounter Location Date Provider Diagnosis Skinny Morales MD [address] [place] [address] [place] [phone] 01/23/2024 Skinny Morales Pure hypercholestero lemia E78.00 Assessments Encounter Date Diagnosis (ICD Code) Assessment Notes Treatment Notes Treatment Clinical Notes Section Notes 01/23/2024 Pure hypercholesterolemia (ICD-10 - E78.00) doing well on meds , is at goal, will continue current regiment Plan Of Treatment Medication Medication Name Sig Start Date Stop Date Notes Atorvastatin Calcium 40 MG TAKE 1 TABLET BY MOUTH EVERY DAY Treatment Notes Assessment Notes Pure hypercholesterolemia doing well on meds , is at goal, will continue current regiment Next Appt Details Provider Name:Skinny Templeton ier, 07/20/2024 01:00:00 PM, [address] [place] [address], [place] [address], [place], [place], [phone], Progress Notes * Nakul UGARTEDOB: (83 yo M)Acc No.[id number]:01/23/2024 Progress Notes Patient:?Nakul Ugatre Provider:?Skinny Morales MD :1940???Age:83 Y???Sex:Male Daniel e:01/23/2024 Address:[address] [place], [place] [phone] Subjective: * Chief Complaints: * ???6 month * HPI: ???Symptom(s):? patient is a 83 yo male here for 6 month follow up visit complaiing he sweats a lot. * ROS:?General/Constitutional:?Denies?Chills.?Denies?Fatigue.?Denies?Fever.?Denies?Headache.?ENT:?Patient denies?decreased sense of smell , any loss of taste , sore throat.?Denies?Sinus pain.?Respiratory:?Denies?Cough.?Denies?Shortness of breath at rest.?Denies?Shortness of breath with exertion.?Gastrointestinal:?Denies?Diarrhea.?Denies?Nausea.?Musculoskeletal:?Patient denies?muscle aches.?Peripheral Vascular:?Patient denies?red and blue toes.? * Medical History:? * Surgical History:? * Hospitalization/Major Diagno stic Procedure:? * Medications:?TakingAspir-81 81 MG Tablet Delayed Release 1 tablet Orally Once a dayFurosemide 20 MG Tablet 1 tablet Orally Once a dayAtorvastatin Calcium 40 MG Tablet TAKE 1 TABLET BY MOUTH EVERY DAY PARoxetine HCl 40 MG Tablet TAKE 1 TABLET BY MOUTH EVERY DAY IN THE MORNING Taking Aspir-81 81 MG Tablet Delayed Release 1 tablet Orally Once a dayTaking Furosemide 20 MG Tablet 1 tablet Orally Once a dayTaking Atorvastatin Calcium 40 MG Tablet TAKE 1 TABLET BY MOUTH EVERY DAY Taking PARoxetine HCl 40 MG Tablet TAKE 1 TABLET BY MOUTH EVERY DAY IN THE MORNING Not-Taking/PRNAlbuterol Sulfate HFA 108 (90 Base) MCG/ACT Aerosol Solution 1 puff as needed Inhalation every 4 hrsMedication List reviewed and reconciled with the patientNot-Taking/PRN Albuterol Sulfate HFA 108 (90 Base) MCG/ACT Aerosol Solution 1 puff as needed Inhalation every 4 hrsMedication List reviewed and reconciled with the patient * Allergies:?N.K.D.A.yes[Aller gies Verified] Objective: * Vitals:?Ht: 72, Wt:233, BMI: 31.60, BP:128/74. * ???Past Orders: ???Lab:Liver Panel (Order Da te - 01/16/2024) (Collection Date - 01/16/2024) ? Value Reference Range ?Bilirubin Total 0.6 0.0- 1.0 - mg/dL ?Bilirubin Direct 0.2 0.0 -0.5 - mg/dL ?Aspartate Amino Transferase 22 5-37 - U/L ?Alanine Aminotransferase 15 0-40 - U/L ?Total Protein 7.0 6.5-8. 0 - g/dL ?Albumin Level 4.4 3.5-5. 0 - g/dL ?Alkaline Phosphatase 62 39-117 - U/L ???Lab:Lipid Panel with Refl ex (Order Date - 01/16/2024) (Collection Date - 01/16/2024) ? Value Reference Range ?Triglycerides 61 <150 - mg/dL ?Cholesterol 135 <200 - m g/dL ?LDL Cholesterol Calculated 64 <100 - mg/dL ?HDL Cholesterol 59 >40 - mg/dL * Examination: ???General Examination: ?GENERAL APPEARANCE:? well developed, well nourished.?HEAD:? normocephalic.?SKIN:? good turgor.?HEART:? regular rate and rhythm, no murmurs, rubs, gallops.?LUNGS:? no wheezes, rales, rhonchi, good air movement, clear to auscultation bilaterally.?ABDOMEN:? soft, nontender, nondistended, no rebound tenderness, no organomegaly .? Assessment: * Assessment: 1.?Pure hypercholesterolemia - E78.00 (Primary)? Plan: * Treatment: * Procedure Codes:? * * Sign off status: Completed true * Provider:?Skinny Morales MD Date:?0 01/23/2024 Generated for Nino duenas/Mariah/Guevaraitting on:?07/13/2024 01:37 PM EDT History and Physical Notes * HPI (History of Present Illness) Category Sub-Category Detail Notes Category Not es Symptom(s) patient is a 83 yo male here for 6 month follow up visit complaiing he sweats a lot. Examination Category Sub-Category Detail Notes Category Not es General Examination GENERAL APPEARANCE: well developed , well nourished HEAD: normocephalic HEART: regular rate and rhy thm, no murmurs, rubs, gallops LUNGS: no wheezes, rales, r honchi, good air movement, clear to auscultation bilaterally ABDOMEN: soft, nontender, non distended, no rebound tenderness, no organomegaly SKIN: good turgor
--- OUTSIDE RECORDS SUMMARY | 2024-07-13 13:38 | XMS_ITS ---
Author Organization Skinny Morales MD Address [address] [place], [place] [id number] Care Team Providers Care Gold Assayer Name Role Phone Skinny Morales Primary Care Provider [phone] Results Component Value Reference Range Notes Liver Panel Reviewed date:01/17/2024 08:37:55 AM Interpretation: Performing Lab:[facility], [address] [place] [phone] Notes/Report: Bilirubin Total 0.6 0.0-1.0 mg/dL Bilirubin Direct 0.2 0.0-0.5 mg/dL Aspartate Amino Transferase 22 5-37 U/L Alanine Aminotransferase 15 0-40 U/L Total Protein 7.0 6.5-8.0 g/dL Albumin Level 4.4 3.5-5.0 g/dL Alkaline Phosphatase 62 39-117 U/L Lipid Panel with Reflex Reviewed date:01/17/2024 08:39:18 AM Interpretation: Performing Lab:[facility], [address] [place] [address] Notes/Report: Triglycerides 61 <150 mg/dL Desirable Triglyceride: less than 150 mg/dL Borderline High Triglyceride 150-199 mg/dL High Triglyceride: 200-499 mg/dL Very High Triglyceride: greater than or equal to 5OO mg/dL Cholesterol 135 <200 mg/dL Desirable Cholesterol: less than 200 mg/dL Borderline High Cholesterol: 200-239 mg/dL High Cholesterol: greater than 239 mg/dL LDL Cholesterol Calculated 64 <100 mg/dL Desirable LDL: less than 100 mg/dL Near Optimal/Above Optimal LDL: 110-129 mg/dL Borderline High LDL: 130-159 mg/dL High LDL: 160-189 mg/dL Very High LDL: greater than or equal to 190 mg/dL HDL Cholesterol 59 >40 mg/dL Desirable HDL: greater than 40 mg/dL Note: This HDL assay may give artificially low results in patients with liver disease. REASON FOR VISIT lipids liver Immunizations Vaccine Route Administration Date Status Comme nts Influenza High Dose IM Intramuscular 01/16/2024 Administer ed Encounters Encounter Location Date Provider Diagnosis Skinny Morales MD [address] [place] [phone] 01/16/2024 Skinny Morales Pure hypercholestero lemia E78.00 and Encounter for immunization Z23 Assessments Encounter Date Diagnosis (ICD Code) Assessment Notes Treatment Notes Treatment Clinical Notes Section Notes 01/16/2024 Pure hypercholesterolemia (ICD-10 - E78.00) 01/16/2024 Encounter for immunization (ICD-10 - Z23) Plan Of Treatment Next Appt Details Provider Name:Skinny Templeton ier, 07/20/2024 01:00:00 PM, [address], [address], [place], [place], [phone], Progress Notes * Nakul UGARTEDOB: (83 yo M)Acc No.[id number]:01/16/2024 Progress Note Patient:?Nakul UGARTE Provider:?Skinny Morales MD :1940???Age:83 Y???Sex:Male Daniel e:01/16/2024 Address:[address] [place], [place] [id number] Subjective: * Chief Complaints: * ???1. Lipids liver. * Medical History:? Objective: * Vitals:? Assessment: * Assessment: 1.?Encounter for immunizatio n - Z23 (Primary)???2.?Pure hypercholesterolemia - E78.00??? Plan: * Treatment: * Immunizations:? Influenza High Dose : 0.5 mL (Dose No:1) (Route: Intramuscular) given by Shawna Cotto , Office Staff on Left Deltoid * Procedure Codes:?42133 FLU V ACC PRSV FREE INC ANTIG, G0008 ADMN FLU VAC NO FEE SCHED SAME DAY, 76820 VENIPUNCT, ROUTINE* * * The named appointment provid er may or may not be the originator of this progress note, and it is not deemed complete until electronically signed by the appointment provider. Sign off status: Pending * Provider:?Skinny Morales MD Date:?0 01/16/2024 Generated for Nino duenas/Mariah/Guevaraitting on:?07/13/2024 01:37 PM EDT
== END 2024-07-13 11:54 | disposition home or self-care (01) ==
LOC: HO.LNP 11:53
PROVIDERS: Visit Provider Internal Medicine
DX: E78.00 Pure hypercholesterolemia, unspecified (principal); Z12.5 Encounter for screening for malignant neoplasm of prostate
CPT/HCPCS: 80053; 80061; 81001; 84153; 85025

== ENCOUNTER 2024-09-21 17:09 | Emergency (ER) | payer MEDICARE, SELFPAY ==
--- NOTE | ~2024-09-21 | CT_ITS ---
CLINICAL HISTORY: L flank pain bruising fall down embankment [address] of the abdomen and pelvis utilizing intravenous contrast. No comparison. Findings: There is elevation of the right hemidiaphragm. There is an indeterminate 3 cm left adrenal nodule. There is nonobstructive left nephrolithiasis. Multiple renal hypodensities are likely cysts. No solid organ injury is identified. No abdominal aortic aneurysm. Small hiatal hernia. There is prominent sigmoid diverticulosis. No diverticulitis is identified. There is moderate stool in the colon. The bladder is mildly trabeculated. No hemoperitoneum. No acute fractures are seen. There are severe degenerative changes in the spine with scoliosis. Impression: No solid organ injury is seen. Indeterminate 3 cm left adrenal nodule. Other findings as above. This document has been electronically signed by: Rashaun Montoya MD on 09/21/2024 20:01:54
--- NOTE | ~2024-09-21 | CT_ITS ---
CLINICAL HISTORY: head trauma CT of the head without contrast. No comparison. Findings: There are mild nonspecific white matter changes. No acute hemorrhage or infarct is seen. No masses are identified and there is no hydrocephalus. There is no mass-effect. Impression: No acute intracranial abnormality is identified. This document has been electronically signed by: Rashaun Montoya MD on 09/21/2024 19:56:31
--- NOTE | ~2024-09-21 | CT_ITS ---
CLINICAL HISTORY: L flank pain bruising fall down embankment [address] of the chest without contrast. No comparison. Findings: Small hiatal hernia. There is elevation of the right hemidiaphragm. No pleural or pericardial effusion. There are mild nonspecific pleural calcifications on the left. The ascending aorta is upper limits of normal in diameter. There is no pneumothorax or focal consolidation. There is mild scarring or atelectasis in the lungs. Findings in the abdomen or described separately. No acute fractures are seen. There are severe degenerative changes in the spine. Impression: No acute injury is identified. Other findings as above. This document has been electronically signed by: Rashaun Montoya MD on 09/21/2024 20:05:24
--- NOTE | ~2024-09-21 | CT_ITS ---
CLINICAL HISTORY: neck trauma CT of the cervical spine without contrast. No comparison. Findings: No acute fractures are seen. There are advanced degenerative changes. There is mild multilevel malalignment likely degenerative in nature. There is fusion of the C2-3 and C3-4 facet joints bilaterally. There is mild calcification adjacent to the dens with small erosions of the adjacent portion of C1 suspicious for underlying CPPD. There is severe multilevel spinal and foraminal stenosis. Impression: No acute fractures. Other findings as above. This document has been electronically signed by: Rashaun Montoya MD on 09/21/2024 19:57:00
[2024-09-21 17:14] VITALS: BP 142/81; PULSE 94; RESP 12; TEMP 36.6; O2SAT 95
[2024-09-21 17:34] LABS: MANUAL DIFF FLAG NO
[2024-09-21 17:40] LABS: Basophils Absolute Auto 0.1 X10*3/uL (0.0-0.2); Basophils Percent Auto 0.8 % (0-2); Eosinophils Absolute Auto 0.3 X10*3/uL (0.0-0.4); Hematocrit 44.1 % (42.0-52.0); Hemoglobin 15.1 g/dl (14.0-18.0); Imm Gran Abs Auto 0.01 X10*3/uL (0.00-0.03); Imm Gran Pct Auto 0.1 % (0.0-0.4); Lymphocytes Absolute Auto 2.2 X10*3/uL (1.2-4.9); Mean Corpuscular HGB Conc 34.2 g/dl (31.0-36.0); Mean Corpuscular Hemoglobin 31.1 pg (27.0-33.0); Mean Corpuscular Volume 90.9 fL (80.0-98.0); Monocytes Absolute Auto 0.6 X10*3/uL (0.1-1.2); Monocytes Percent Auto 7.3 % (2-11); Neutrophils Absolute Auto 4.4 x10*3/uL (2.0-8.3); Neutrophils Percent Auto 58.8 % (45-73); Platelet Count 223 X10*3/uL (160-400); Red Blood Count 4.85 X10*6/uL (4.60-5.80); Red Cell Distribution Width 13.3 % (11.0-16.0); White Blood Count 7.5 X10*3/uL (4.8-10.8)
--- NOTE | 2024-09-21 17:51 | PC.NURSE ---
Addendum entered by Tori Taveras RN 09/21/24 17:59: patient denies any neck or back pain/ tenderness at this time, no noted abnormalities to the spine / neck Original Note: patient presented to ED after fall aprox 20-30 feet down embankment, patient was painting fence when he fell and tumbled down hill. fall was witnessed by neighbor, no reported LOC, patient is not on thinners. EMS states patient had climbed longterm back up the hill prior to their arrival where they helped him the rest of the way. patient refused c collar placement and denies pain. upon arrival to ED patient is awake and alert, answers questions appropriately. Resp unlabored equal chest rise and fall, patient noted to have frequent non productive cough that he states is chronic. patient posterior head noted to have lac to right side, wound cleaned by firestopper technician, bleeding controlled. patient chest and abdomen have no abnormalities, scratches through out chest and abd from fall. patient noted to have bruising to right side of abd/ribs, denies pain. patient bilat legs noted red/knees red. patien tbilat feet noted to be mottled, patient states he sees vascular DR x2 a year and is not on home medications, states he has compression socks but did not wear them today. palpable pedal pulse on left foot marked, unable to palpate / doppler right foot pedal pulse, right foot noted to be cold and more mottled then left foot. 18# placed in patient left wrist, labs obtained and sent. patient VSS at this time, at bedside, call dinero within reach.
[2024-09-21 18:01] LABS: Alanine Aminotransferase 15 U/L (0-40); Albumin Level 4.3 g/dL (3.5-5.0); Alkaline Phosphatase 70 U/L (39-117); Anion Gap 13 (12-20); Aspartate Amino Transferase 29 U/L (5-37); Bilirubin Direct 0.2 mg/dL (0.0-0.5); Bilirubin Total 0.8 mg/dL (0.0-1.0); Blood Urea Nitrogen 23 mg/dL (9-16); Calcium 9.1 mg/dL (8.4-10.2); Carbon Dioxide 23 mmol/L (22-29); Chloride 107 mmol/L (96-108); Creatinine Clr Calc Pharmacy 89.6; Estimated Glomerular Filt Rate > 60; Ethanol < 10 mg/dL; Glucose Random 93 mg/dL (60-115); Lipase 19 U/L (8-78); Potassium 4.3 mmol/L (3.3-5.1); Sodium 139 mmol/L (135-145); Total Protein 7.2 g/dL (6.5-8.0)
[2024-09-21] MEDS: Diphth,Pertus(ACell),Tet Adult 0.5 ML SYRINGE IM (18:08)
--- NOTE | 2024-09-21 18:15 | ED.FALL ---
HPI - Fall General Chief Complaint: Fall Stated Complaint: fall down 20ft embankment, -loc/thinners Source: patient, family and EMS Mode of arrival: EMS Limitations: no limitations History of Present Illness ED Provider: FLORENTIN HPI Narrative: 84 yo male with PMH of asthma, PVD follows with Arc[facility]o not on medications and states he has chronic cold purple toes that he wears stockings for. He states he has no stents or bypass. He is not on thinners. He states they can never find a pulse in his R foot. He was painting outside and reached down to grab some rotted wood when he went forward and rolled down an embankment about 20 feet - mostly grass with some small rocks. He denies injury other than some scrapes. No chest pain/abd pain/dyspnea. He states he is fine. No LOC. 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) Fall from: standing Fall witnessed: no Place fall occurred: other Loss of consciousness: none Prolonged down time: no Symptoms prior to fall: none Context: tripped/slipped Location of injury: head Severity: mild Quality: dull Associated symptoms (after fall): denies Related Data Home Medications ?Medication ?Instructions ?Recorded ?Confirmed albuterol sulfate 90 mcg/actuation 2 puff inhalation Q2H PRN 06/28/20 aerosol inhaler aspirin 81 mg tablet,delayed 81 mg PO DAILY 06/28/20 release atorvastatin 40 mg tablet mg PO 06/28/20 paroxetine HCl 40 mg tablet 40 mg PO DAILY 02/13/23 Allergies Allergy/AdvReac Type Severity Reaction Status Date / Time No Known Allergies Allergy Verified 09/21/24 17:16 Review of Systems Review of Systems: Constitutional : No Fever, No Chills, No Fatigue ENT/Mouth : No sore throat, No Rhinorrhea Eyes: No Eye Pain, No Swelling, No Redness Cardiovascular : No Chest Pain, No SOB, No Dyspnea on Exertion Respiratory : No Cough, No Sputum Gastrointestinal : No Nausea, No Vomiting, No Diarrhea, No abdominal Pain Genitourinary : No Dysuria, No Urinary Frequency, No Hematuria, Musculoskeletal : No joint pain, No Myalgias, No Joint Swelling Skin : No Skin Lesions, No rash Neuro : No Weakness, No Numbness, No Dizziness, positive Headache Psych : No Anxiety/Panic, No Depression Heme/Lymph: No Bruising, No Bleeding,No Lymphadenopathy Endocrine : No Polyuria, No Polydipsia All other systems reviewed and are negative [facility] Past Medical History Attestation statement: The following information was validated with the patient. Source: old records reviewed Medical History Mild intermittent asthma Dyspnea on exertion Social History Social History Patient Tobacco Use Status: Former Tobacco user Advance Directives: No Advance Directives Information Provided: No Do you have a plan to hurt others: No Plan Physical Exam Vital Signs: Vital Signs: Last Vital Signs Temp 97.5 F 09/21/24 19:16 Pulse 75 09/21/24 19:16 Resp 24 H 09/21/24 19:16 BP 141/76 H 09/21/24 19:16 Pulse Ox 96 09/21/24 19:16 O2 Del Method Room Air 09/21/24 19:16 BMI result Body Mass Index 30.0 Appearance: Alert. Oriented X3. No acute distress. Eyes: Pupils equal, round and reactive to light. ENT: Pharynx normal. posterior R scalp superficial 2cm stellate laceration Neck: Normal inspection. Neck supple. CVS: Normal heart rate and rhythm. Pulses normal excepted chronic PAD in feet - purple bilateral cold toes he and state this is baseline for him. Respiratory: No respiratory distress. Breath sounds normal. Abdomen: Soft and nontender. L flank mild contusion and abrasion superficial Skin: Skin warm and dry. Normal skin color. Normal skin turgor. Extremities: No lower extremity edema. Neuro: Oriented X 3. No motor deficit. No sensory deficit. CN2-12 intact Medications Administered Discontinued Medications Generic Name Dose Route Start Last Admin Trade Name Freq PRN Reason Stop Dose Admin Diphtheria/Tetanus/Acell Pertussis 0.5 ml 09/21/24 17:25 09/21/24 18:08 Diphth,Pertus(Acell),Tet Adult 0.5 Ml Syringe IM 09/21/24 17:26 0.5 ml .ONCE ONE Administration Lactated Ringer's 1,000 mls @ 999 mls/hr 09/21/24 19:12 09/21/24 19:14 Lr IV 09/21/24 20:12 999 mls/hr .Q1H1M ONE Administration Procedures Laceration Laceration 1: Site: scalp Side (If applicable): right Size (cm): 2 Description: stellate Depth: simple, single layer Pre-repair: wound explored, irrigated extensively and deep structures intact Skin layer closed with: other (dermabond) Medical Decision Making Medical Decision Making [facility] Narrative: 84 yo male with PMH of asthma, PVD follows with Arcoleo here s/p rolling down an embankment about 20 feet - no LOC not on thinners at this time will obtain basic labs, shetty CT scans for trauma given age - he declines pain medications, will update Tdap I did discuss with him my concerns about his chronic PAD that he uses compression stockings for I did discuss referral to our vascular provider Dr. Casas. Differential Diagnosis Differential Diagnoses: The differential diagnosis associated with the presentation includes trauma, contusion, head injury, contusion, abrasions Admission/Observation Consideration of admission/observation: Escalation of care including admission/observation considered GCS 15 stable for DC not altered negative work up Lab Data [facility] Lab Attestation statement: I reviewed the patient's lab results. 09/21/24 17:31 09/21/24 17:31 Labs: Lab Results 09/21/24 Range/Units 17:31 WBC 7.5 (4.8-10.8) X10*3/uL RBC 4.85 (4.60-5.80) X10*6/uL Hgb 15.1 (14.0-18.0) g/dl Hct 44.1 (42.0-52.0) % MCV 90.9 (80.0-98.0) fL MCH 31.1 (27.0-33.0) pg MCHC 34.2 (31.0-36.0) g/dl RDW 13.3 (11.0-16.0) % Plt Count 223 (160-400) X10*3/uL MPV 10.0 (9.4-12.4) fL Immature Gran % (Auto) 0.1 (0.0-0.4) % Neut % (Auto) 58.8 (45-73) % Lymph % (Auto) 29.0 (20-40) % [place] % (Auto) 7.3 (2-11) % Eos % (Auto) 4.0 (0-4) % Baso % (Auto) 0.8 (0-2) % Lymph # (Auto) 2.2 (1.2-4.9) X10*3/uL [place] # (Auto) 0.6 (0.1-1.2) X10*3/uL Eos # (Auto) 0.3 (0.0-0.4) X10*3/uL Baso # (Auto) 0.1 (0.0-0.2) X10*3/uL Abs Immat Gran (auto) 0.01 (0.00-0.03) X10*3/uL Absolute Neuts (auto) 4.4 (2.0-8.3) x10*3/uL Absolute Nucleated RBC 0.000 (0.0-0.012) X10*3/uL Nucleated RBC % (auto) 0.0 (0.0-0.2) /100WBC Sodium 139 (135-145) mmol/L Potassium 4.3 (3.3-5.1) mmol/L Chloride 107 (96-108) mmol/L Carbon Dioxide 23 (22-29) mmol/L Anion Gap 13 (12-20) BUN 23 H (9-16) mg/dL Creatinine 0.81 (0.5-1.4) mg/dL Estim Creat Clear Calc 89.6 Estimated GFR > 60 Random Glucose 93 (60-115) mg/dL Calcium 9.1 (8.4-10.2) mg/dL Magnesium 2.0 (1.6-2.6) mg/dL Total Bilirubin 0.8 (0.0-1.0) mg/dL Direct Bilirubin 0.2 (0.0-0.5) mg/dL AST 29 (5-37) U/L ALT 15 (0-40) U/L Alkaline Phosphatase 70 (39-117) U/L Total Protein 7.2 (6.5-8.0) g/dL Albumin 4.3 (3.5-5.0) g/dL Lipase 19 (8-78) U/L Ethyl Alcohol < 10 mg/dL Independent Interpretation I performed an independent interpretation of an: CT Scan (no trauma) Radiology Impression Discussion of test interpretation with radiology: I have reviewed the radiologist's reading. Independent Historian Clinical information obtained from an independent historian. History obtained from or confirmed by: Spouse and EMS External Record Review External record reviewed: Outpatient record Prescription Management I considered prescription management with: Pain Medication Discharge Plan Discharge Clinical Impression: Multiple contusions Laceration of scalp Qualifiers: Encounter type: initial encounter Qualified Code(s): S01.01XA - Laceration without foreign body of scalp, initial encounter Head injury Qualifiers: Encounter type: initial encounter Qualified Code(s): S09.90XA - Unspecified injury of head, initial encounter Patient Disposition: Home, Self-Care Instructions: Head Injury (ED), Laceration (ED), Skin Adhesive Care (ED), Contusion in Adults (ED) Additional Instructions: no trauma today on exam of head, cervical spine, chest or abdomen incidental findings - small hiatal hernia, Left adrenal gland nodule NEED TO GET IMAGING WITH YOUR DOCTOR return for worsening symptoms, confusion, vomiting more than twice or any other concerning issues you should follow up with our vascular surgeon as discussed call for appointment glue will fall off in 5 to 10 days okay to shower Prescriptions: No Action paroxetine HCl 40 mg tablet 40 mg PO DAILY albuterol sulfate 90 mcg/actuation HFA aerosol inhaler 2 puff inhalation Q2H PRN atorvastatin 40 mg tablet PO aspirin 81 mg tablet,delayed release (DR/EC) 81 mg PO DAILY Referrals: [facility] [place] Vascular Services [Provider Group] (call to schedule appointment) Print Language: Venezuelan
--- NOTE | 2024-09-21 19:12 | PC.NURSE ---
this rn assumed care of pt, pt reports lightheadedness at this time, aware, plan for iv fluids.
[2024-09-21] MEDS: Lactated Ringers 1,000 ML 999 ML IV (19:14)
[2024-09-21 19:16] VITALS: BP 141/76; PULSE 75; RESP 24; TEMP 36.4; O2SAT 96
--- OUTSIDE RECORDS SUMMARY | 2024-09-21 19:50 | XMS_ITS ---
Author Organization Skinny Morales MD Address [address] [place], [place] [id number] Care Team Providers Care Aerospace Products Sales Engineer Name Role Phone Skinny Morales Primary Care Provider [phone] Allergies No Known Allergies REASON FOR VISIT 6 month Medications Medication SIG (Take, Route, Frequency, Duration) Notes Start Date End Date Status PARoxetine HCl 40 MG TAKE 1 TABLET BY [facility] EVERY DAY IN THE MORNING for [...] Location Date Provider Diagnosis Skinny Morales MD [address] [place] [phone] 01/23/2024 Skinny Morales Pure hypercholestero lemia E78.00 [...] current regiment Next Appt Details Provider Name:Skinny jansen, 10/13/2024 01:00:00 PM, [address] [place] [address], [phone], Provider Name:Skinyn jansen, 01/14/2025 07:30:00 AM, [address] [place] [address], [phone], Provider Name:Skinny jansen, 01/21/2025 01:45:00 PM, [address] [place] [address], [phone], Provider Name:Skinny jansen, 07/16/2025 07:30:00 AM, [address] [place] [address], [phone], Provider Name:Skinny beachr, 07/23/2025 01:00:00 PM, [address] [place] [address], [phone], Progress Notes * Nakul UGARTEDOB: (83 yo M)Acc No.[id number]:01/23/2024 Progress Notes Patient:?Nakul Ugarte Provider:?Skinny Morales MD :1940???Age:83 Y???Sex:Male Daniel e:01/23/2024 Address:[id number] Subjective: * Chief Complaints: * ???6 month [...] Morales MD Date:?0 01/23/2024 Generated for Nino duenas/Mariah/eTransmitting on:?2024 07:50 PM EDT History and Physical Notes * [...]
--- OUTSIDE RECORDS SUMMARY | 2024-09-21 19:50 | XMS_ITS ---
Author Organization Skinny Morales MD Address [address] [place], [place] [phone] Care Team Providers Care Continuous Improvement Specialist Name Role Phone Andrew Skinny Primary Care Provider Results Component Value Reference Range Notes Complete Blood Count Auto Di ff Reviewed date:07/13/2024 06:10:21 PM Interpretation: Performing Lab:[facility], [address] [place] [phone] Notes/Report: White Blood Count 8.2 4.8-10.8 X10*3/uL [...] NRBC Abs Auto 0.000 0.0-0.012 X10*3/uL Comprehensive [place]. Panel Fa st Reviewed date:07/13/2024 06:09:35 PM Interpretation: Performing Lab:[facility], [address] [place] [phone] Notes/Report: Sodium 142 135-145 mmol/L Potassium 4.1 [...] 3.5-5.0 g/dL Alkaline Phosphatase 67 39-117 U/L Lipid Panel Reviewed date:07/13/2024 12:40:52 PM Interpretation: Performing Lab:[facility], [address] [place] [phone] Notes/Report: Triglycerides 69 <150 mg/dL Desirable Triglyceride: [...] low results in patients with liver disease. PSA,Total (Free>4and<10) Reviewed date:07/13/2024 05:58:54 PM Interpretation: Performing Lab:[facility], [address] [place] [phone] Notes/Report: PSA,Total (Free>4and<10) 0.52 0.00-4.00 ng/mL A [...] Immunoassay (CMIA) UA ClnCatch+Micro w/rflx Cul t Reviewed date:07/13/2024 06:09:58 PM Interpretation: Performing Lab:[facility], [address] [place] [address] Notes/Report: Urine, Clean Catch Color Urine Yellow Appearance Urine Clear PH 5.5 5.0-9.0 Glucose Urine UA Negative Negative mg/dL Urine Blood Negative Negative Specific [place] - Urine 1.025 1.005-1.025 Urine Protein Negative Neg-Trace mg/dL Urine Ketones Negative Negative mg/dL Nitrite Urine Negative Negative Leukocyte Esterase Urine Negative Negative RBC Urine 0-2 0-2 /HPF WBC Urine 0-5 0-5 /HPF Squamous Epithelial Cell Urine 0-2 0-2 /HPF Bacteria Urine None Seen None Seen Hyaline Casts Urine 0-2 0-2 /LPF REASON FOR VISIT yarly fasting labs Encounters Encounter Location Date Provider Diagnosis Skinny Morales MD [address] [place] [phone] 07/13/2024 Skinny Merritt hypercholestero lemia E78.00 Assessments Encounter Date Diagnosis (ICD Code) Assessment Notes Treatment Notes Treatment Clinical Notes Section Notes 07/13/2024 Pure hypercholesterolemia (ICD-10 - E78.00) Plan Of Treatment Next Appt Details Provider Name:Skinny beachr, 10/13/2024 01:00:00 PM, [address] [place] [address], [phone], Provider Name:Skinny jansen, 01/14/2025 07:30:00 AM, [address] [place] [address], [phone], Provider Name:Skinny jansen, 01/21/2025 01:45:00 PM, [address] [place] [address], [phone], Provider Name:Skinny jansen, 07/16/2025 07:30:00 AM, [address] [place] [address], [phone], Provider Name:kSinny jansen, 07/23/2025 01:00:00 PM, [address] [place] [address], [phone], Progress Notes * Nakul UGARTEDOB: (84 yo M)Acc No.[id number]:07/13/2024 Progress Note Patient:?Nakul UGARTE Provider:?Skinny Morales MD :1940???Age:83 Y???Sex:Male Daniel e:07/13/2024 Address:[address] [place] [address] Subjective: * Chief Complaints: * ???1. Yarly fasting labs. * Medical History:? Objective: * Vitals:? Assessment: * Assessment: 1.?Pure hypercholesterolemia - E78.00 (Primary)??? Plan: * Treatment: * Procedure Codes:?41845 VENIP UNCT, ROUTINE* * * The named appointment provid er may or may not be the originator of this progress note, and it is not deemed complete until electronically signed by the appointment provider. Sign off status: Pending * Provider:?Skinny Morales MD Date:?0 07/13/2024 Generated for Nino duenas/Mariah/eTteodorasmitting on:?2024 07:50 PM EDT
--- OUTSIDE RECORDS SUMMARY | 2024-09-21 19:50 | XMS_ITS | Clinical Summary ---
Author Organization [facility] Address [address] [place] [address] Care Team Providers Care Piano Stringer Name Role Phone Skinny Morales MD Primary Care Provider [phone] Allergies No known active allergies Medications Medication [...] age to complete this topic Care Teams Piano Stringer Relationship Specialty Start Date End Date Skinny Morales MD [address] [place] [address] PCP - General Internal Medicine 02/14/18
--- OUTSIDE RECORDS SUMMARY | 2024-09-21 19:50 | XMS_ITS ---
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 Role Phone Skinny Morales Primary Care Provider [phone] Allergies No Known Allergies REASON FOR VISIT comp visit Medications Medication SIG (Take, Route, Frequency, Duration) Notes Start Date End Date Status Albuterol Sulfate HFA 108 (90 Base) MCG/ACT 1 puff as needed Inhalation every 4 hrs Not-Takin g Atorvastatin Calcium 40 MG TAKE 1 TABLET BY MOUTH EVERY DAY Active Furosemide 20 MG 1 tablet Orally Once a day for 30 day(s) Active Aspir-81 81 MG 1 tablet Orally Once a day Active PARoxetine HCl 20 MG 1 tablet in the mor karen Orally Once a day for 30 days 07/20/2024 Active Social History Tobacco Use: Social History Observation Description Date Details (start date - stop date) Former Smoker NA - NA Tobacco Use/Smoking Question Answer Notes Patient is a former smoker How long has it been since y ou last smoked? > 10 years Additional Findings: Tobacco Non-User Fo rmer smoker, currently using no form of tobacco Alcohol Screen Question Answer Notes Did you have a drink contain ing alcohol in the past year? Yes How often did you have a dri nk containing alcohol in the past year? Monthly or less (1 point) How many drinks did you have on a typical day when you were drinking in the past year? 1 or 2 drinks (0 point) How often did you have 6 or more drinks on one occasion in the past year? Never (0 point) Points 1 Interpretation Negative Vital Signs Blood pressure systolic 122 mm Hg 07/21/19 25 Blood pressure diastolic 64 mm Hg 025 Height 72 in 07/20/2024 Weight 237 lbs 07/20/2024 BMI 32.14 kg/m2 07/20/2024 weight is up 4 pounds since 01-23-24 Encounters Encounter Location Date Provider Diagnosis Skinny Morales MD [address] [place] [address] [place] [phone] 07/20/2024 Skinny Morales Anxiety F41.9 ; Unst jennifer gait R26.81 ; Foot drop, left M21.372 and Pure hypercholesterolemia E78.00 Assessments Encounter Date Diagnosis (ICD Code) Assessment Notes Treatment Notes Treatment Clinical Notes Section Notes 07/20/2024 Anxiety (ICD-10 - F41.9) feels like he is doing well and wants to decrease the paroxitine, patient verbalized understandng of change in medication 07/20/2024 Unsteady gait (ICD-1 0 - R26.81) is related to his back disorder. does do some walking in the house, will contiue to monitor 07/20/2024 Foot drop, left (ICD -10 - M21.372) advised to use afo brace 07/20/2024 Pure hypercholesterolemia (ICD-10 - E78.00) stable, will continue current regiment Plan Of Treatment Medication Medication Name Sig Start Date Stop Date Notes Atorvastatin Calcium 40 MG TAKE 1 TABLET BY MOUTH EVERY DAY PARoxetine HCl 40 MG TAKE [address] [facility] EVERY DAY IN THE MORNING PARoxetine HCl 20 MG 1 tablet in the mor karen Orally Once a day for 30 days 07/20/2024 Treatment Notes Assessment Notes Anxiety feels like he is doi ng well and wants to decrease the paroxitine, patient verbalized understandng of change in medication Unsteady gait is related to his ba ck disorder. does do some walking in the house, will contiue to monitor Foot drop, left advised to use afo b race Pure hypercholesterolemia stable, will c ontinue current regiment Next Appt Details Follow Up: 6 Months, Reason: Provider Name:Skinny Templeton ier, 10/13/2024 01:00:00 PM, [address] [place] [address], [place] [address], [place], [place], [phone], Provider Name:Skinny Templeton ier, 01/14/2025 07:30:00 AM, [address] [place] [address], [place] [address], [place], [place], [phone], Provider Name:Skinny Templeton ier, 01/21/2025 01:45:00 PM, [address] [place] [address], [address], [phone], Provider Name:Skinny Templeton ier, 07/16/2025 07:30:00 AM, [address] [place] [address], [place] [address], [place], [place], [phone], Provider Name:Skinny Templeton ier, 07/23/2025 01:00:00 PM, [address] [place] [address], [place] [address], [place], [place], [phone], Progress Notes * Nakul UGARTEDOB: (83 yo M)Acc No.[id number]:07/20/2024 Patient:?Nakul UGARTE Provider:?Skinny Morales MD :1940???Age:83 Y???Sex:Male Daniel e:07/20/2024 Address:[address] [place], [place] [address] Subjective: * Chief Complaints: * ???Comp visit * HPI: ???Depression Screening:?PHQ-9?Little interest or pleasure in doing things?Not at all,?Feeling down, depressed, or hopeless?Not at all,?Trouble falling or staying asleep, or sleeping too much?Not at all,?Feeling tired or having little energy?Not at all,?Poor appetite or overeating?Not at all,?Feeling bad about yourself or that you are a failure, or have let yourself or your family down?Not at all,?Trouble concentrating on things, such as reading the newspaper or watching television?Not at all,?Moving or speaking so slowly that other people could have noticed; or the opposite, being so fidgety or restless that you have been moving around a lot more than usual?Not at all,?Thoughts that you would be better off or of hurting yourself in some way?Not at all,?Total Score?0.?Interpretation and Intervention?Depression Screening Findings?Negative,?Follow-Up for Depression?: review of PHQ-9 found negative result, no follow-up needed.?Communication Needs:?Communication Needs?Does the patient have a hearing impairment?No,?Does the patient have a vision impairment??Yes,?If yes, what is the vision impairment??Glasses,?Does the patient have a cognition impairment??No.?Fall Risk:?History?Have you had any falls with injury in the past year??No,?Have you had two or more falls in the past year??No.?SDOH Questions:?SDOH Questions?In the past year have you been worried about losing housing??No,?In the past year have you or any family members you live with been unable to get any of the following when it was really needed? Check all that apply:?None.?Symptom(s):? patient is a 83 yo male here for visit with review of recent labs and follow up of chronic issues.?going to gym occasionally. * ROS:?General/Constitutional:?Change in appetite?denies.?Chills?denies.?Fever?denies.?Ophthalmologic:?Blurred vision?denies.?Discharge?denies.?Pain?denies.?ENT:?Decreased hearing?denies.?Sore throat?denies.?Swollen glands?denies.?Endocrine:?Cold intolerance?denies.?Excessive thirst?denies.?Heat intolerance?denies.?Weight loss?denies.?Respiratory:?Cough?denies.?Shortness of breath at rest?denies.?Shortness of breath with exertion?denies.?Wheezing?denies.?Cardiovascular:?Chest pain at rest?denies.?Chest pain with exertion?denies.?Irregular heartbeat?denies.?Shortness of breath?denies.?Gastrointestinal:?Abdominal pain?denies.?Change in bowel habits?denies.?Diarrhea?denies.?Nausea?denies.?Rectal bleeding?denies.?Vomiting?denies .?Genitourinary:?Blood in urine?denies.?Difficulty urinating?denies.?Frequent urination?denies.?Musculoskeletal:?Painful joints?denies.?Weakness?denies.?Skin:?Dry skin?denies.?Itching?denies.?Denies?Mole(s),? changes in moles, new moles or any lesions of concern.?Denies?Photosensitivity.?Rash?denies.?Neurologic:?Dizziness?denies.?Fainting?denies.?Headache?denies.? * Medical History:? * Surgical History:? * Hospitalization/Major Diagno stic Procedure:? * Family History:?Father: dece ased 84 yrs, alzheimer, diagnosed with Alzheimer disease.?Mother: 94 yrs, diagnosed with Cancer.?2 brother(s) , 1 sister(s) - healthy. 2 son(s) - healthy. .? father- Alzheimer's Mother- Stomach cancer, Denies mental health/substance abuse family history, Denies mental health/substance abuse family history, Denies mental health/substance abuse family history. * Social History:?Tobacco Use:?Tobacco Use/Smoking?Patient is a?former smoker,?How long has it been since you last smoked??> 10 years,?Additional Findings: Tobacco Non-User?Former smoker, currently using no form of tobacco.?Drugs/Alcohol:?Alcohol Screen?Did you have a drink containing alcohol in the past year??Yes,?How often did you have a drink containing alcohol in the past year??Monthly or less (1 point),?How many drinks did you have on a typical day when you were drinking in the past year??1 or 2 drinks (0 point),?How often did you have 6 or more drinks on one occasion in the past year??Never (0 point),?Points?1,?Interpretation?Negative.?Miscellaneous:?Caffeine: yes, frequency:, 1-2 cups per day. Children: yes. Exercise: yes. Home smoke detector use: yes. Living with: spouse. Marital status: . Occupation: RETIRED. Pets: none. Travel outside of the [place]: no. * Medications:?TakingAspir-81 81 MG Tablet Delayed Release 1 tablet Orally Once a day Furosemide 20 MG Tablet 1 tablet Orally Once a day PARoxetine HCl 40 MG Tablet TAKE 1 TABLET BY MOUTH EVERY DAY IN THE MORNING Atorvastatin Calcium 40 MG Tablet TAKE 1 TABLET BY MOUTH EVERY DAY Taking Aspir-81 81 MG Tablet Delayed Release 1 tablet Orally Once a day Taking Furosemide 20 MG Tablet 1 tablet Orally Once a day Taking PARoxetine HCl 40 MG Tablet TAKE 1 TABLET BY MOUTH EVERY DAY IN THE MORNING Taking Atorvastatin Calcium 40 MG Tablet TAKE 1 TABLET BY MOUTH EVERY DAY Not-Taking/PRNAlbuterol Sulfate HFA 108 (90 Base) MCG/ACT Aerosol Solution 1 puff as needed Inhalation every 4 hrs Medication List reviewed and reconciled with the patientNot-Taking/PRN Albuterol Sulfate HFA 108 (90 Base) MCG/ACT Aerosol Solution 1 puff as needed Inhalation every 4 hrs Medication List reviewed and reconciled with the patient * Allergies:?N.K.D.A.yes[Aller gies Verified] Objective: * Vitals:?Ht: 72, Wt: 237, BMI :32.14, BP:122/64, Wt-k.5. weight is up 4 pounds since? 01-23-24. * ???Past Orders: ???Lab:Lipid Panel (Order Da te - 07/13/2024) (Collection Date & Time - 07/13/2024 07:15 AM) ? Value Reference Range ?Triglycerides 69 <150 - mg/dL ?Cholesterol 146 <200 - m g/dL ?LDL Cholesterol Calculated 77 <100 - mg/dL ?HDL Cholesterol 56 >40 - mg/dL ???Lab:Comprehensive [place]. P morena Fast (Order Date - 07/13/2024) (Collection Date & Time - 07/13/2024 07:15 AM) ? Value Reference Range ?Sodium 142 135-145 - mmo l/L ?Bilirubin Total 0.8 0.0- 1.0 - mg/dL ?Aspartate Amino Transferase 24 5-37 - U/L ?Alanine Aminotransferase 13 0-40 - U/L ?Total Protein 7.3 6.5-8. 0 - g/dL ?Albumin Level 4.3 3.5-5. 0 - g/dL ?Alkaline Phosphatase 67 39-117 - U/L ?Potassium 4.1 3.3-5.1 - mmol/L ?Chloride 110 H 96-108 - mm ol/L ?Carbon Dioxide 25 22-29 - mmol/L ?Anion Gap 11 L 12-20 - ?Blood Urea Nitrogen 27 H 9-16 - mg/dL ?Creatinine 0.79 0.5-1.4 - mg/dL ?Estimated Glomerular Filt Rate > 60 - ?Glucose Fasting 94 60-9 9 - mg/dL ?Calcium 9.1 8.4-10.2 - m g/dL ???Lab:PSA,Total (Free>4and< 10) (Order Date - 07/13/2024) (Collection Date & Time - 07/13/2024 07:15 AM) ? Value Reference Range ?PSA,Total (Free>4and<10) 0.52 0.00-4.00 - ng/mL ???Lab:UA ClnCatch+Micro w/r flx Cult (Order Date - 07/13/2024) (Collection Date & Time - 07/13/2024 07:15 AM) ? Value Reference Range ?Color Urine Yellow - ?Appearance Urine Clear - ?PH 5.5 5.0-9.0 - ?Glucose Urine UA Negative Neg ative - mg/dL ?Urine Blood Negative Negative - ?Specific [place] - Urine 1.025 1.005-1.025 - ?Urine Protein Negative Neg-Tr patrick - mg/dL ?Urine Ketones Negative Negati ve - mg/dL ?Nitrite Urine Negative Negati ve - ?Leukocyte Esterase Urine Negative Negative - ?RBC Urine 0-2 0-2 - /HPF ?WBC Urine 0-5 0-5 - /HPF ?Squamous Epithelial Cell Urine 0-2 0-2 - /HPF ?Bacteria Urine None Seen None Seen - ?Hyaline Casts Urine 0-2 0-2 - /LPF ???Lab:Complete Blood Count Auto Diff (Order Date - 07/13/2024) (Collection Date & Time - 07/13/2024 07:15 AM) ? Value Reference Range ?White Blood Count 8.2 4. 8-10.8 - X10*3/uL ?Red Blood Count 4.94 4.60 -5.80 - X10*6/uL ?Hemoglobin 15.1 14.0-18.0 - g/dl ?Hematocrit 45.4 42.0-52.0 - % ?Mean Corpuscular Volume 91.9 80.0-98.0 - fL ?Mean Corpuscular Hemoglobin 30.6 27.0-33.0 - pg ?Mean Corpuscular HGB Conc 33.3 31.0-36.0 - g/dl ?Red Cell Distribution Width 13.2 11.0-16.0 - % ?Platelet Count 213 160-4 00 - X10*3/uL ?Mean Platelet Volume 11.1 9.4-12.4 - fL ?Neutrophils Percent Auto 50.9 45-73 - % ?Imm Gran Pct Auto 0.2 0. 0-0.4 - % ?Lymphocytes Percent Auto 34.8 20-40 - % ?Monocytes Percent Auto 8.5 2-11 - % ?Eosinophils Percent Auto 4.6 H 0-4 - % ?Basophils Percent Auto 1.0 0-2 - % ?NRBC Pct Auto 0.0 0.0-0. 2 - /100WBC ?Neutrophils Absolute Auto 4.2 2.0-8.3 - x10*3/uL ?Imm Gran Abs Auto 0.02 0. 00-0.03 - X10*3/uL ?Lymphocytes Absolute Auto 2.9 1.2-4.9 - X10*3/uL ?Monocytes Absolute Auto 0.7 0.1-1.2 - X10*3/uL ?Eosinophils Absolute Auto 0.4 0.0-0.4 - X10*3/uL ?Basophils Absolute Auto 0.1 0.0-0.2 - X10*3/uL ?NRBC Abs Auto 0.000 0.0-0. 012 - X10*3/uL * Examination: ???General Examination: ?GENERAL APPEARANCE:?well developed, well nourished, in no acute distress.?HEAD:?normocephalic, atraumatic.?EYES:?pupils equal, round, reactive to light and accommodation, sclera non-icteric.?EARS:?normal.?ORAL CAVITY:?mucosa moist.?THROAT:?clear.?NECK/THYROID:?neck supple, full range of motion, no cervical lymphadenopathy, no bruits.?SKIN:?warm and dry, no suspicious lesions.?HEART:?regular rate and rhythm, S1, S2 normal, no murmurs.?LUNGS:?clear to auscultation bilaterally.?ABDOMEN:?soft, nontender, nondistended, bowel sounds present, normal, no organomegaly , no masses palpable.?RECTAL EXAM:?normal tone, no external hemorrhoids, no masses palpable, prostate normal, stool guaiac negative.?MALE GENITOURINARY:?not examined.?EXTREMITIES:?no clubbing, cyanosis, or edema.?NEUROLOGIC:?nonfocal, motor strength normal upper and lower extremities, sensory exam intact.? Assessment: * Assessment: 1.?Anxiety - F41.9 (Primary) ???2.?Unsteady gait - R26.81???3.?Foot drop, left - M21.372???4.?Pure hypercholesterolemia - E78.00??? Plan: * Treatment: 2.?Unsteady gait? Notes: is related to his back disorder. does do some walking in the house, will contiue to monitor?? 3.?Foot drop, left? Notes: advised to use afo brace?? 4.?Pure hypercholesterolemia ? Continue Atorvastatin Calcium Tablet, 40 MG, TAKE 1 TABLET BY MOUTH EVERY DAY.?? Notes: stable, will continue current regiment?? * Procedure Codes:? * Preventive Medicine:? ??Counseling:?Care goal follow-up plan:?Counseling for abnormal BMI provided?Yes,?Above Normal BMI Follow-up?Giving encouragement to exercise.? * Follow Up:?6 Months * * Sign off status: Completed true * Provider:?Skinny Morales MD Date:?0 07/20/2024 Generated for Nino duenas/Mariah/Guadalupe on:?2024 07:50 PM EDT History and Physical Notes * HPI (History of Present Illness) Category Sub-Category Detail Notes Category Not es Symptom(s) patient is a 83 yo male here for visit with review of recent labs and follow up of chronic issues. going to gym occasionally Depression Screening PHQ-9 Little interest or pleasure in doing things: Not at all Feeling down, depressed, or hopeless: No t at all Trouble falling or staying asleep, or sl eeping too much: Not at all Feeling tired or having little energy: N ot at all Poor appetite or overeating: Not at all Feeling bad about yourself o r that you are a failure, or have let yourself or your family down: Not at all Trouble concentrating on thi ngs, such as reading the newspaper or watching television: Not at all Moving or speaking so slowly that other people could have noticed; or the opposite, being so fidgety or restless that you have been moving around a lot more than usual: Not at all Thoughts that you would be b josh off or of hurting yourself in some way: Not at all Total Score: 0 Interpretation and Intervention Depression Juan jones Findings: Negative Follow-Up for Depression: : review of PH Q-9 found negative result, no follow-up needed SDOH Questions SDOH Questions In the past year have you been worried about losing housing?: No In the past year have you or any family members you live with been unable to get any of the following when it was really needed? Check all that apply:: None Fall Risk History Have you had any falls with injury i n the past year?: No Have you had two or more falls in the year?: No Communication Needs Communication Needs Does the patient have a hearing impairment: No Does the patient have a vision impairmen t?: Yes ?If yes, what is the vision impairment?: Glasses Does the patient have a cognition impair ment?: No Examination Category Sub-Category Detail Notes Category Not es General Examination GENERAL APPEARANCE: well dev eloped, well nourished, in no acute distress HEAD: normocephalic, atrau matic EYES: pupils equal, round, reactive to light and accommodation, sclera non- icteric EARS: normal THROAT: clear NECK/THYROID: neck supple, full ra nge of motion, no cervical lymphadenopathy, no bruits HEART: regular rate and rhy thm, S1, S2 normal, no murmurs LUNGS: clear to auscultatio n bilaterally ABDOMEN: soft, nontender, non distended, bowel sounds present, normal, no organomegaly , no masses palpable NEUROLOGIC: nonfocal, motor stre ngth normal upper and lower extremities, sensory exam intact SKIN: warm and dry, no nathan picious lesions EXTREMITIES: no clubbing, cyanosi s, or edema MALE GENITOURINARY: not examined RECTAL EXAM: normal tone, no exte rnal hemorrhoids, no masses palpable, prostate normal, stool guaiac negative ORAL CAVITY: mucosa moist
--- NOTE | 2024-09-21 20:30 | PC.NURSE ---
lac noted on back of pt head, cleaned at this time, at bedside.
[2024-09-21 20:47] VITALS: BP 126/78; PULSE 69; RESP 17; TEMP 36.9; O2SAT 98
== END 2024-09-21 20:48 | disposition home or self-care (01) ==
PROVIDERS: Emergency Provider Emergency Medicine; PCP Internal Medicine
DX: S09.90XA Unspecified injury of head, initial encounter (principal); S30.1XXA Contusion of abdominal wall, initial encounter; S01.01XA Laceration without foreign body of scalp, initial encounter; W17.81XA Fall down embankment (hill), initial encounter; R51.9 Headache, unspecified; Y93.89 Activity, other specified; Y92.017 Garden or yard in single-family (private) house as the place of occurrence of the external cause; Y99.9 Unspecified external cause status; Z23 Encounter for immunization
CPT/HCPCS: 12001; 36415; 70450; 71260; 72125; 74177; 80048; 80076; 80307; 83690; 83735; 85025; 90471; 90715; 96360; 99284; J7120

== ENCOUNTER → 2024-09-21 17:25 | Outpatient (BNV) | payer MEDICARE, SELFPAY | PROVIDERS: Emergency Provider Emergency Medicine; PCP Internal Medicine; Visit Provider Radiology Diagnostic Radiology | DX: D35.02 Benign neoplasm of left adrenal gland (principal); K44.9 Diaphragmatic hernia without obstruction or gangrene; S19.9XXA Unspecified injury of neck, initial encounter; S09.90XA Unspecified injury of head, initial encounter | CPT/HCPCS: 70450; 71260; 72125; 74177 ==

== ENCOUNTER 2024-10-01 10:17 | Outpatient (AMB) | payer MEDICARE, SELFPAY ==
--- NOTE | 2024-10-01 10:26 | A.OFFVIS_ITS ---
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 Pt states no leg cramping, states weakness and lose of balance. 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 Arin Parson from cardiology was noted to have cold swollen lower extremities. He presented to the emergency room after a fall. He also reports that he may have had a right lower extremity venous ablation in the past. At the current time he is concerned about the swelling and discomfort of his lower extremities. In addition he is concerned that his feet are persistently discolored. He now presents to us for vascular evaluation. [facility] Medical History Mild intermittent asthma Dyspnea on exertion Social History Patient Tobacco Use Status: Former Tobacco user Review of Systems Const All systems reviewed & are unremarkable except as noted in HPI and below Reports no additional complaints ENT Reports Normal hearing present Card Denies chest pain, Denies chest pain at rest, Denies chest pain with activity and Denies pedal edema Resp Denies cough GI Denies abdominal pain Musc Denies abnormal gait, Denies muscle cramps and Denies radiating pain into limb Skin/Breast Denies skin ulcer and Denies wounds Neuro Reports Normal hearing present and Denies abnormal gait Psych Reports no additional complaints Physical Exam Vital Signs: BMI result Body Mass Index 29.9 Const General: cooperative, healthy appearing and comfortable Orientation/consciousness: oriented to person, oriented to place and oriented to time HEENT Head: Yes normal to inspection Neck Neck: Yes normal visual inspection Carotids: no bruits Chest Chest palpation & inspection: normal inspection of the chest Resp Effort & Inspection: normal respiratory effort and able to speak in complete sentences Auscultation: clear to auscultation bilaterally, no crackles, no rales, no rhonchi and no wheezes Cardio Other: Bilateral DP signals Rate: regular rate Rhythm: regular rhythm Heart sounds: S1 normal heart sound present and S2 normal heart sound present Bruits: no carotid bruits GI Inspection: Yes normal to inspection Skin Wounds: no wounds Hair: normal Neuro General: oriented to person, oriented to place and oriented to time Cranial nerves: Yes CN's II-XII intact bilaterally and Yes Normal hearing present Cognition (Neuro): normal cognition Motor exam (neuro): 5/5 motor strength present throughout Extrem Other: venous exam: No significant superficial varicosities or spider telangiectasias, minimal edema General: No clubbing, No cyanosis and No edema Psych Appearance: grossly normal Mental Status: mental status grossly normal Speech and movement: Normal speech and movement present Assessment & Plan Assessment & Plan (1) PAD (peripheral artery disease): Code(s): I73.9 - Peripheral vascular disease, unspecified Category: Medical Plan: I was unable to clearly appreciate palpable pulses. I have taken the liberty of ordering noninvasive arterial testing to better evaluate his is arterial flow. It is unclear what was done in the past but will allow for a better baseline evaluation. (2) Varicose veins of right lower extremity with inflammation: Code(s): I83.11 - Varicose veins of right lower extremity with inflammation Category: Medical Plan: Patient has a history of right lower extremity ablation done by Dr. Chelsi Manzanares. Timeline of which is unclear. He currently has significant edema. I have also taken the liberty of ordering repeat venous insufficiency testing. He will follow up with us after testing. (3) Raynauds disease: Code(s): I73.00 - Raynaud's syndrome without gangrene Category: Medical Qualifiers: Raynaud?s-associated gangrene presence: without gangrene Qualified Code(s): I73.00 - Raynaud's syndrome without gangrene Plan: In short the patient may have an element of Raynaud's syndrome. I have discussed the pathophysiology with the patient, inclusive of spasming of the vessels and change in color of digits from white, red, and blue. We have discussed prevention inclusive of protection hand and feet at all times, reduction of caffeine intake, and reduction of stressors. Also smoking cessation may help improve issues. At the current time the patient appears to be stable. Should this persist may need follow-up with Rheumatology and use a calcium channel isaiah. He will be following up with us regarding arterial and venous disease. Orders: Orders US arterial duplex LE BI 1 Week I73.9 - Peripheral vascular disease, unspecified US venous duplex LE BI 1 Week I83.11 - Varicose veins of right lower extremity with inflammation Coding Level of Care Code New Pt Level 4 (33660) Complex EM visit Add On G2211 Diagnoses PAD (peripheral artery disease) I73.9 Varicose veins of right lower extremity with inflammation I83.11 Raynaud's disease without gangrene I73.00 Raynaud?s-associated gangrene presence: without gangrene
[2024-10-01 10:27] VITALS: BMI 29.9
--- OUTSIDE RECORDS SUMMARY | 2024-10-01 10:39 | XMS_ITS | Patient Health Record ---
Author Organization Skinny Morales MD Address [address] [place], [place] [id number] Care Team Providers Care Fashion Journalist Name Role Phone Skinny Morales Primary Care Provider Allergies No Known Allergies Results Component Value Reference Range Notes Liver Panel Reviewed date:01/17/2024 08:37:55 AM Interpretation: Performing Lab:[facility], [address] [place] [phone] Notes/Report: Bilirubin Total 0.6 0.0-1.0 mg/dL Bilirubin Direct 0.2 0.0-0.5 mg/dL Aspartate Amino Transferase 22 5-37 U/L Alanine Aminotransferase 15 0-40 U/L Total Protein 7.0 6.5-8.0 g/dL Albumin Level 4.4 3.5-5.0 g/dL Alkaline Phosphatase 62 39-117 U/L Lipid Panel with Reflex Reviewed date:01/17/2024 08:39:18 AM Interpretation: Performing Lab:[facility], [address] [place] [phone] Notes/Report: Triglycerides 61 <150 mg/dL Desirable Triglyceride: [...] low results in patients with liver disease. Complete Blood Count Auto Di ff Reviewed date:07/13/2024 06:10:21 PM Interpretation: Performing Lab:[facility], [address] [place] [phone] Notes/Report: White Blood Count 8.2 4.8-10.8 X10*3/uL [...] NRBC Abs Auto 0.000 0.0-0.012 X10*3/uL Comprehensive Dyess. Panel Fa st Reviewed date:07/13/2024 06:09:35 PM Interpretation: Performing Lab:[address] [address] Notes/Report: Sodium 142 135-145 mmol/L Potassium 4.1 [...] Panel Reviewed date:07/13/2024 12:40:52 PM Interpretation: Performing Lab:[address] [address] Notes/Report: Triglycerides 69 <150 mg/dL Desirable Triglyceride: [...] (Free>4and<10) Reviewed date:07/13/2024 05:58:54 PM Interpretation: Performing Lab:[address] [address] Notes/Report: PSA,Total (Free>4and<10) 0.52 0.00-4.00 ng/mL A [...] t Reviewed date:07/13/2024 06:09:58 PM Interpretation: Performing Lab:[address] [address] Notes/Report: Urine, Clean Catch Color Urine Yellow Appearance Urine Clear PH 5.5 5.0-9.0 Glucose Urine UA Negative Negative mg/dL Urine Blood Negative Negative Specific Winston - Urine 1.025 1.005-1.025 Urine Protein Negative Neg-Trace mg/dL Urine Ketones Negative Negative mg/dL Nitrite Urine Negative Negative Leukocyte Esterase Urine Negative Negative RBC Urine 0-2 0-2 /HPF WBC Urine 0-5 0-5 /HPF Squamous Epithelial Cell Urine 0-2 0-2 /HPF Bacteria Urine None Seen None Seen Hyaline Casts Urine 0-2 0-2 /LPF Hold Gold Reviewed date:01/16/2024 06:47:29 PM Interpretation: Performing Lab:[facility], [address] [place] [phone] Notes/Report: Hold Gold See Note Specimen held untested for 24 hours; Call to request Chemistry testing. CT abdomen pelvis w con (Not yet reviewed by provider) Interpretation:09-29-2024 Performing Lab: Notes/Report: [address] [address] [address] Scan Report Signed Patient: Nakul Aguilera MR#: [id number] : 1940 Acct:[id number] Age/Sex: 84 / M ADM Date: 09/21/24 Loc: HO.ED Attending Dr: Ordering Physician: Vivian Carrillo DO Date of Service: 09/21/24 Procedure(s): CT abdomen pelvis w IV con Accession Number(s): [id number] cc: Skinny Morales MD; Vivian Carrillo DO Report Number: [id number]: Total DLP = 1162.88 mGy-cm CLINICAL HISTORY: L flank pain bruising fall down embankment [address] of the abdomen and pelvis utilizing intravenous contrast. No comparison. Findings: There is elevation of the right hemidiaphragm. There is an indeterminate 3 cm left adrenal nodule. There is nonobstructive left nephrolithiasis. Multiple renal hypodensities are likely cysts. No solid organ injury is identified. No abdominal aortic aneurysm. Small hiatal hernia. There is prominent sigmoid diverticulosis. No diverticulitis is identified. There is moderate stool in the colon. The bladder is mildly trabeculated. No hemoperitoneum. No acute fractures are seen. There are severe degenerative changes in the spine with scoliosis. Impression: No solid organ injury is seen. Indeterminate 3 cm left adrenal nodule. Other findings as above. This document has been electronically signed by: Rashaun Montoya MD on 2024 20:01:54 Dictated By: Otoniel Marcos MD Signed By: <Electronically signed by Otoniel Marcos MD in OV> 09/21/242001 DD/ 00 TD/TT: 09/21/242000 [employer] Architect: [facility] [address] [place] [address] [address] [address] Scan Report Signed Patient: Nakul Aguilera MR#: [id number] : 1940 Acct:[id number] Age/Sex: 84 / M ADM Date: 09/21/24 Loc: HO.ED Attending Dr: Ordering Physician: Vivian Carrillo DO Date of Service: 09/21/24 Procedure(s): CT abdomen pelvis w IV con Accession Number(s): [id number] cc: Skinny Morales MD; Vivian Carrillo DO Report Number: [id number]: Total DLP = 1162.88 mGy-cm CLINICAL HISTORY: L flank pain bruising fall down embankment [address] of the abdomen an d pelvis utilizing intravenous contrast. No comparison. Findings: There is elevation o f the right hemidiaphragm. There is an indeterminate 3 cm left adrenal nodule. There is nonobstructive left nephrolithiasis. Multiple renal hypodensities are likely cysts. No solid organ injur y is identified. No abdominal aortic aneurysm. Small hiatal hernia. There is prominent sigmoid diverticulosis. No diverticulitis is identified. There is moderate st ool in the colon. The bladder is mildl y trabeculated. No hemoperitoneum. No acute fractures a re seen. There are severe degenerative changes in the spine with scoliosis. Impression: No solid organ injur y is seen. Indeterminate 3 cm l eft adrenal nodule. Other findings as above. This document has be en electronically signed by: Rashaun Montoya MD on 2024 20:01:54 Dictated By: Otoniel Marcos MD Signed By: <Electronically signed by Otoniel Marcos MD in OV> 09/21/242001 DD/ 00 TD/TT: 09/21/242000 Microsoft Architect: CT chest w con Reviewed date:09/22/2024 12:30:47 PM Interpretation: Performing Lab: Notes/Report: [address] [address] [address] Scan Report Signed Patient: Nakul Aguilera MR#: [id number] : 1940 Acct:[id number] Age/Sex: 84 / M ADM Date: 09/21/24 Loc: HO.ED Attending Dr: Ordering Physician: Vivian Carrillo DO Date of Service: 09/21/24 Procedure(s): CT chest w IV con Accession Number(s): [id number] cc: Skinny Morales MD; Vivian Carrillo DO Report Number: [id number]: Total DLP = 566.08 mGy-cm CLINICAL HISTORY: L flank pain bruising fall down embankment [address] of the chest without contrast. No comparison. Findings: Small hiatal hernia. There is elevation of the right hemidiaphragm. No pleural or pericardial effusion. There are mild nonspecific pleural calcifications on the left. The ascending aorta is upper limits of normal in diameter. There is no pneumothorax or focal consolidation. There is mild scarring or atelectasis in the lungs. Findings in the abdomen or described separately. No acute fractures are seen. There are severe degenerative changes in the spine. Impression: No acute injury is identified. Other findings as above. This document has been electronically signed by: Rashaun Montoya MD on 2024 20:05:24 Dictated By: Otoniel Marcos MD Signed By: <Electronically signed by Otoniel Marcos MD in OV> 09/21/242005 DD/ 04 TD/TT: 09/21/242004 [employer] Architect: [place] [address] [address] Scan Report Signed Patient: Nakul Aguilera MR#: [id number] : 1940 Acct:[id number] Age/Sex: 84 / M ADM Date: 09/21/24 Loc: HO.ED Attending Dr: Ordering Physician: Vivian Carrillo DO Date of Service: 09/21/24 Procedure(s): CT maryan st w IV con Accession Number(s): [id number] cc: Skinny Morales MD; Vivian Carrillo DO Report Number: [id number]: Total DLP = 566.08 mGy-cm CLINICAL HISTORY: L flank pain bruising fall down embankment [address] of the chest with out contrast. No comparison. Findings: Small hiatal hernia. There is elevation o f the right hemidiaphragm. No pleural or pericardial effusion. There are mild nonspecific pleural calcifications on the left. The ascending aorta is upper limits of normal in diameter. There is no pneumothorax or focal consolidation. There is mild scarri ng or atelectasis in the lungs. Findings in the abdo men or described separately. No acute fractures a re seen. There are severe degenerative changes in the spine. Impression: No acute injury is identified. Other findings as above. This document has be en electronically signed by: Rashaun Montoya MD on 2024 20:05:24 Dictated By: Otoniel Marcos MD Signed By: <Electronically signed by Otoniel Marcos MD in OV> 09/21/242005 DD/ 04 TD/TT: 09/21/242004 Microsoft Architect: CT cervical spine wo con Reviewed date:09/29/2024 03:36:46 PM Interpretation: Performing Lab: Notes/Report: [place] [address] [address] Scan Report Signed Patient: Nakul Aguilera MR#: [id number] : 1940 Acct:[id number] Age/Sex: 84 / M ADM Date: 09/21/24 Loc: HO.ED Attending Dr: Ordering Physician: Vivian Carrillo DO Date of Service: 09/21/24 Procedure(s): CT cervical spine wo IV con Accession Number(s): [id number] cc: Skinny Morales MD; Vivian Carrillo DO Report Number: [id number]: Total DLP = 499.77 mGy-cm CLINICAL HISTORY: neck trauma CT of the cervical spine without contrast. No comparison. Findings: No acute fractures are seen. There are advanced degenerative changes. There is mild multilevel malalignment likely degenerative in nature. There is fusion of the C2-3 and C3-4 facet joints bilaterally. There is mild calcification adjacent to the dens with small erosions of the adjacent portion of C1 suspicious for underlying CPPD. There is severe multilevel spinal and foraminal stenosis. Impression: No acute fractures. Other findings as above. This document has been electronically signed by: Rashaun Montoya MD on 2024 19:57:00 Dictated By: Otoniel Marcos MD Signed By: <Electronically signed by Otoniel Marcos MD in OV> 09/21/241957 DD/ 56 TD/TT: 09/21/241956 [employer] Architect: [address] [address] [address] Scan Report Signed Patient: Nakul Aguilera MR#: [id number] : 1940 Acct:[id number] Age/Sex: 84 / M ADM Date: 09/21/24 Loc: HO.ED Attending Dr: Ordering Physician: Vivian Carrillo DO Date of Service: 09/21/24 Procedure(s): CT cervical spine wo IV con Accession Number(s): [id number] cc: Skinny Morales MD; Vivian Carrillo DO Report Number: [id number]: Total DLP = 499.77 mGy-cm CLINICAL HISTORY: ne ck trauma CT of the cervical spine without contrast. No comparison. Findings: No acute fractures a re seen. There are advanced degenerative changes. There is mild multilevel malalignment likely degenerative in nature. There is fusion of the C2- 3 and C3-4 facet joints bilaterally. There is mild calcification adjace nt to the dens with small erosions of the adjacent portion of C1 suspicious for underlying CPPD. There is severe multilevel spinal and foraminal stenosis. Impression: No acute fractures. Other findings as above. This document has be en electronically signed by: Rashaun Montoya MD on 2024 19:57:00 Dictated By: Otoniel Marcos MD Signed By: <Electronically signed by Otoniel Marcos MD in OV> 09/21/241957 DD/ 56 TD/TT: 09/21/241956 [employer] Architect: CT head/brain wo con Reviewed date:09/22/2024 12:33:36 PM Interpretation: Performing Lab: Notes/Report: [address] [address] [address] Scan Report Signed Patient: Nakul Aguilera MR#: [id number] : 1940 Acct:[id number] Age/Sex: 84 / M ADM Date: 09/21/24 Loc: HO.ED Attending Dr: Ordering Physician: Vivian Carrillo DO Date of Service: 09/21/24 Procedure(s): CT head/brain wo IV con Accession Number(s): [id number] cc: Skinny Morales MD; Vivian Carrillo DO Report Number: [id number]: Total DLP = 818.68 mGy-cm CLINICAL HISTORY: head trauma CT of the head without contrast. No comparison. Findings: There are mild nonspecific white matter changes. No acute hemorrhage or infarct is seen. No masses are identified and there is no hydrocephalus. There is no mass-effect. Impression: No acute intracranial abnormality is identified. This document has been electronically signed by: Rashaun Montoya MD on 2024 19:56:31 Dictated By: Otoniel Marcos MD Signed By: <Electronically signed by Otoniel Marcos MD in OV> 09/21/241956 DD/ 55 TD/TT: 09/21/241955 Microsoft Architect: [place] [address] CT Scan Report Signed Patient: Nakul Aguilera MR#: [id number] : 1940 Acct:[id number] Age/Sex: 84 / M ADM Date: 09/21/24 Loc: .ED Attending Dr: Ordering Physician: Vivian Carrillo DO Date of Service: 09/21/24 Procedure(s): CT head/brain wo IV con Accession Number(s): [id number] cc: Skinny Morales MD; Vivian Carrillo DO Report Number: [id number]: Total DLP = 818.68 mGy-cm CLINICAL HISTORY: he ad trauma CT of the head witho ut contrast. No comparison. Findings: There are mild nonspecific white matter changes. No acute hemorrhage or infarct is seen. No masses are identified and there is no hydrocephalus. There is no mass-effect. Impression: No acute intracrania l abnormality is identified. This document has be en electronically signed by: Rashaun Montoya MD on 2024 19:56:31 Dictated By: Otoniel Marcos MD Signed By: <Electronically signed by Otoniel Marcos MD in OV> 09/21/241956 DD/ 55 TD/TT: 09/21/241955 [employer] Architect: Reason For Referral Reason balance problems Diagnosis 1 Balance problems (R2 6.89) Referral Organization Skinny Morales MD Referring Provider First Name Skinny Referring Provider Last Name Andrew Referring Provider Speciality Internal M edicine Referred Provider Lala Boogie Referred Provider Specialty Neurology General Notes Akua Gale 0 09/29/2024 03:01:00 PM > referral info faxed Referral Priority Routine Medications Medication SIG (Take, Route, Frequency, Duration) [...] Once a day for 30 day(s) Not-Taking Immunizations Vaccine Route Administration Date Status Comme nts Flu Vaccine IM Intramuscular 03/02/2011 Administered Flu Vaccine IM Intramuscular 01/14/2012 Administered PPSV23 (Pnemovax) IM Intramuscular 05/19/2012 Administered Prevnar 13 IM Intramuscular 09/15/2012 Administered Flu Vaccine IM Intramuscular 02/03/2013 Administered Fluarix Quadrivalent IM Intramuscular 01/26/2014 Administe red Fluarix Quadrivalent IM Intramuscular 01/25/2015 Administe red Shingles IM Intramuscular 04/26/2015 Administered Fluarix Quadrivalent IM Intramuscular 02/17/2016 Administe red Fluarix Quadrivalent IM Intramuscular 02/04/2017 Administe red PPSV23 (Pnemovax) IM Intramuscular 06/18/2017 Administered TDaP IM Intramuscular 12/26/2017 Administered pt had vaccine at [facility] on [address] [place]. Fluarix Quadrivalent IM Intramuscular 01/21/2018 Administe red Fluarix Quadrivalent IM Intramuscular 01/19/2019 Administe red Influenza High Dose IM Intramuscular 01/07/2020 Administer ed Covid Vaccine Unknown 06/14/2020 Administered Pfizee Covid Vaccine Unknown 07/05/2020 Administered Pfizer Influenza High Dose IM Intramuscular 01/16/2021 Administer ed SARS-COV-2 Pfizer Unknown 03/03/2021 Administered [facility] Influenza High Dose IM Intramuscular 01/09/2022 Administer ed Influenza High Dose IM Intramuscular 04/01/2023 Administer ed Influenza High Dose IM Intramuscular 01/16/2024 Administer ed Flu Vaccine Unknown 01/26/2014 Pending Social History Tobacco Use: Social History Observation [...] Never (0 point) Points 1 Interpretation Negative Problems Problem Type SNOMED Code ICD Code Onset Dates Problem Status W/U Status Risk Notes Problem Venous thrombosis (400794297) Venous thrombosis (453.9) Active confirmed Problem 36451925 Hematuria (R31.9) Active confirmed Problem 26391500 Anxiety (F41.9) Active confirmed Problem 829296812 Lumbar disc dise ase (M51.9) Active confirmed Problem 03696804 RBBB (I45.10) Active confirmed Problem 284968281 Cervical disc di sease (M50.90) Active confirmed Problem 892873696 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) Active confirmed Problem 917223443 Peripheral vascu lar disease (I73.9) Active confirmed Problem 83701319 Unsteady gait (R26.81) Active confirme d Problem 452915921 Pure hypercholesterolemia (E78.00) Active confirmed Problem 725254980461251 Atherosclerosis of both carotid arteries (I65.23) Active confirmed Problem Problem with balance (819738680) Balance problems (R26.89) Active confirmed Vital Signs Blood pressure diastolic 66 mm Hg 09/29/2024 mehrdad ght is down 3 pounds since 07-20-24 Height 72 in 09/29/2024 weight is down 3 pounds since 07-20-24 Blood pressure systolic 104 mm Hg 09/29/2024 mehrdadg ht is down 3 pounds since 07-20-24 Weight 234 lbs 09/29/2024 weight is down 3 pounds since 07-20-24 BMI 31.73 kg/m2 09/29/2024 weight is down 3 pounds since 07-20-24 Encounters Encounter Location Date Provider Diagnosis Skinny Morales MD [address] [place] [id number] 01/16/2024 Skinny Morales Pure hypercholestero lemia E78.00 and Encounter for immunization Z23 Skinny Morales MD [address] [place] [id number] 07/13/2024 Skinny Morales Pure hypercholestero lemia E78.00 Skinny Morales MD [address] [place] [id number] 09/29/2024 Skinny Morales Balance problems R26 .89 ; Peripheral vascular disease I73.9 and Adrenal adenoma, unspecified laterality D35.00 Skinny Morales MD [address] [place] [id number] 01/23/2024 Skinny Morales Pure hypercholestero lemia E78.00 Skinny Morales MD [address] [place] [id number] 07/20/2024 Skinny Morales Anxiety F41.9 ; Unst jennifer gait R26.81 ; Foot drop, left M21.372 and Pure hypercholesterolemia E78.00 Skinny Morales MD [address] [place] [id number] 09/22/2024 Skinny Morales Assessments Encounter Date Diagnosis (ICD Code) Assessment Notes Treatment Notes Treatment Clinical Notes Section Notes 01/16/2024 Pure hypercholesterolemia (ICD-10 - E78.00) 01/16/2024 Encounter for immunization (ICD-10 - Z23) 07/13/2024 Pure hypercholesterolemia (ICD-10 - E78.00) 09/29/2024 Balance problems (ICD-10 - R26.89) will refer to neurology at [facility] 09/29/2024 Peripheral vascular disease (ICD-10 - I73.9) to see dr pace this weeki 01/23/2024 Pure hypercholesterolemia (ICD-10 - E78.00) doing well on meds , is at goal, will continue current regiment 07/20/2024 Anxiety (ICD-10 - F41.9) feels like he is doing well and wants to decrease the paroxitine, patient verbalized understandng of change in medication 07/20/2024 Unsteady gait (ICD-1 0 - R26.81) is related to his back disorder. does do some walking in the house, will contiue to monitor 09/29/2024 Adrenal adenoma, unspecified laterality (ICD-10 - D35.00) no change in 9 years 07/20/2024 Foot drop, left (ICD -10 - M21.372) advised to use afo brace 07/20/2024 Pure hypercholesterolemia (ICD-10 - E78.00) stable, will continue current regiment Plan Of Treatment Pending Test Test Name Order Date Electrocardiogram (EKG) 05/24/2016 Electrocardiogram (EKG) 07/02/2019 Electrocardiogram (EKG) 03/30/2014 XR CHEST 2 VIEW PA & LAT 01/21/2012 XR LUMBAR SPINE 4+ VIEWS 07/28/2018 US LEG RT VENOUS DOPPLER 07/30/2011 CT abdomen pelvis w con 2024 US carotid duplex BI 01/16/2022 Next Appt Details Provider Name:Skinny jansen, 10/13/2024 01:00:00 PM, [address] [place] [address], [address] [place] [address], [phone], Provider Name:Skinny jansen, 11/30/2024 02:00:00 PM, [address] [place] [address], Suite [facility], [place], [place], [phone], Provider Name:Skinny jansen, 01/14/2025 07:30:00 AM, [address] [place] [address], Suite [facility], [place], [place], [phone], Provider Name:Skinny jansen, 01/21/2025 01:45:00 PM, [address] [facility], [address], [place], [place], [phone], Provider Name:Skinny Templeton ier, 07/16/2025 07:30:00 AM, [address] [place] [address], [address], [place], [place], [phone], Provider Name:Skinny Templeton ier, 07/23/2025 01:00:00 PM, [address] [place] [address], Suite [facility], [place], [place], [phone], Insurance Providers Payer Name Payer Address Payer Phone Subscriber Number Group Number Insured Name Patient Relationship to Insured Coverage Start Date Coverage End Date MEDICARE NHIC ROB[place] [address] [place] [id number] Self - patient is the insured MEDEX BC OF [facility] [id number] [place] [id number] Self - patient is the insured Medical (General) History Medical History History ICD Code disc disease colonoscopy due in 2011; col onoscopy 07/28/2013 hyperplastic polyp no further colonoscopy hematuria eval 2016 Inguinal adenopathy 785.6
== END 2024-10-01 11:06 | disposition home or self-care (01) ==
LOC: HO.HVS 10:18
PROVIDERS: PCP Internal Medicine; Visit Provider Surgery Vascular Surgery
DX: I73.9 Peripheral vascular disease, unspecified (principal); I83.11 Varicose veins of right lower extremity with inflammation; I73.00 Raynaud's syndrome without gangrene
CPT/HCPCS: 99204; G2211

== ENCOUNTER → 2024-10-01 10:17 | Outpatient (BNVA) | payer MEDICARE, SELFPAY | PROVIDERS: PCP Internal Medicine; Visit Provider Surgery Vascular Surgery | DX: I73.9 Peripheral vascular disease, unspecified (principal); I73.00 Raynaud's syndrome without gangrene; I83.11 Varicose veins of right lower extremity with inflammation | CPT/HCPCS: 99202 ==

== ENCOUNTER 2024-11-03 09:56 | Outpatient (REF) | payer MEDICARE, SELFPAY ==
--- NOTE | ~2024-11-03 | US_ITS ---
EXAMINATION: US LOWER EXTREMITY VENOUS (REFLUX EXAM), BILATERAL CLINICAL INFORMATION: Varices. COMPARISON: None. TECHNIQUE: Color flow triplex imaging and compression Doppler was performed to evaluate both the deep and the superficial systems bilaterally. To evaluate the superficial system, the examination was performed in the upright position. Color-flow Doppler ultrasound and compression ultrasound were utilized. In addition, maneuvers were utilized to demonstrate reflux. FINDINGS: 1. DEEP VENOUS ULTRASOUND OF THE RIGHT LOWER EXTREMITY: Common Femoral Vein: Compressible, normal respiratory variation and augmented flow. Femoral Vein: Compressible, normal color flow and augmentation. Popliteal Vein: Compressible, normal augmentation. Deep Reflux: 2472 ms at the popliteal vein. There is no evidence of a Benavides's cyst. 2. SUPERFICIAL ULTRASOUND WITH DOPPLER OF RIGHT LOWER EXTREMITY: GREAT SAPHENOUS VEIN: Saphenofemoral Junction: 0.8 cm; Reflux: 0 ms Proximal Thigh: 0.2 cm; Reflux: 0 ms Mid Thigh: Not seen. Distal Thigh: Not seen. At Knee: Not seen. Proximal Calf: Not seen. Mid Calf: Not seen. Distal Calf: Not seen. DUPLICATED MEDIAL GREAT SAPHENOUS VEIN: Diameter: None imaged Reflux: NA DUPLICATED LATERAL GREAT SAPHENOUS VEIN: Diameter: 0.4 cm. Reflux: NA SMALL SAPHENOUS VEIN: Saphenopopliteal Junction: 0.4 cm; Reflux: 0 ms Proximal: 0.2 cm; Reflux: 0 ms Distal: 0.2 cm; Reflux: 0 ms VEIN OF GIACOMINI: Size: 0.1 cm. Reflux: NA PERFORATORS: Location: Proximal to mid calf. Size: 0.3-0.4 cm. Reflux: NA VARICOSITIES: Location: Accessory saphenous vein proximal segment. Size: 0.3 cm Reflux: 2372 ms. 3. DEEP VENOUS ULTRASOUND OF THE LEFT LOWER EXTREMITY: Common Femoral Vein: Compressible, normal respiratory variation and augmented flow. Femoral Vein: Compressible, normal color flow and augmentation. Popliteal Vein: Compressible, normal augmentation. Deep Reflux: 2348 ms at the popliteal vein. There is no evidence of a Benavides's cyst. 4. SUPERFICIAL ULTRASOUND WITH DOPPLER OF LEFT LOWER EXTREMITY: GREAT SAPHENOUS VEIN: Saphenofemoral Junction: 0.7 cm; Reflux: 0 ms Proximal Thigh: 0.2 cm; Reflux: 0 ms Mid Thigh: 0.2 cm; Reflux: 0 ms Distal Thigh: 0.1 cm; Reflux: 0 ms At Knee: Not seen. Proximal Calf: 0.3 cm; Reflux: 1092 ms Mid Calf: 0.1 cm; Reflux: 0 ms Distal Calf: 0.1 cm; Reflux: 0 ms DUPLICATED MEDIAL GREAT SAPHENOUS VEIN: Diameter: None imaged Reflux: NA DUPLICATED LATERAL GREAT SAPHENOUS VEIN: Diameter: 0.2 cm. Reflux: NA SMALL SAPHENOUS VEIN: Saphenopopliteal Junction: 0.2 cm; probable chronic thrombus. Proximal: Not seen. Distal: 0.1 cm; Reflux: 0 ms VEIN OF GIACOMINI: Size: NA Reflux: NA PERFORATORS: Location: Mid calf. Size: 0.2 cm. Reflux: NA VARICOSITIES: Location: None Imaged Size: NA Reflux: NA US/US venous duplex LE BI IMPRESSION: Right: Venous reflux in the deep system, popliteal vein. Varices with reflux in the accessory saphenous vein. Left: Venous insufficiency, great saphenous vein below the knee. Venous reflux in the deep venous system, popliteal vein. Probable old thrombus, small saphenous vein at the junction. No gross varices. . Electronically signed by: Shaheen Chapman MD 11/03/2024 11:02 AM EDT
--- OUTSIDE RECORDS SUMMARY | 2024-11-03 10:54 | XMS_ITS | Patient Health Record ---
Author Organization [facility] Address [address] [place] [address] Care Team Providers Care Forestry Aid Technician Name Role Phone Skinny Morales MD Primary Care Provider Charles Zamudio [phone] Reason For Referral No Information Medications Medication SIG (Take, Route, Frequency, Duration) Notes Start Date End Date Status Colyte with Flavor Packs 227.1 GM as directed Orally as directed for 1 day(s) 06/02/2013 Active Aspir-81 Active Problems Problem Type SNOMED Code ICD Code Onset Dates Problem Status W/U Status Risk Notes Problem Screening for colon cancer (556533629) Screening for colon cancer (V76.51) Active confirmed Problem Long-term current use of aspirin (6346438471149 03) Aspirin long-term use (V58.66) Active confirmed Plan Of Treatment Future Test Test Name Order Date COLONOSCOPY 06/02/2013 Insurance Providers Payer Name Payer Address Payer Phone Subscriber Number Group Number Insured Name Patient Relationship to Insured Coverage Start Date Coverage End Date MEDICARE OF [place] [address] [place] [address] [id number] Self - patient is the insured MEDEX ATTN CLAIMS [address] [place] [address] [id number] Self - patient is the insured Medical (General) History Medical History History ICD Code Denies MS,DM,CVA,Lung disease,renal dise ase Colonoscopy in 08/2001-neg. 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
--- OUTSIDE RECORDS SUMMARY | 2024-11-03 10:54 | XMS_ITS | Clinical Summary ---
Author Organization [facility] Address [address] [place] [address] Care Team Providers Care Oncology Navigator Name Role Phone Skinny Morales MD Primary Care Provider +1- [phone] Allergies No known active allergies Medications Medication [...] - 1-dose 75+ series) 2016 Influenza Vaccine (Season Ended) 2025 Hepatitis B Vaccines Aged Out No long er eligible based on patient's age to complete this topic RSV Ped < 20 months Aged Out No longe r eligible based on patient's age to complete this topic Care Teams Oncology Navigator Relationship Specialty Start Date End Date Skinny Morales MD [address] [place] [address] PCP - General Internal Medicine 02/14/18
--- OUTSIDE RECORDS SUMMARY | 2024-11-03 10:54 | XMS_ITS | Patient Health Record ---
Author Organization Skinny Morales MD Address [address] [place], [place] [id number] Care Team Providers Care Software Intern Name Role Phone Skinny Morales Primary Care Provider Allergies No Known Allergies Results Component Value Reference Range Notes Liver Panel Reviewed date:01/17/2024 08:37:55 AM Interpretation: Performing Lab:[facility], [address] [place] [phone] Notes/Report: Bilirubin Total 0.6 0.0-1.0 mg/dL Bilirubin Direct 0.2 0.0-0.5 mg/dL Aspartate Amino Transferase 22 5-37 U/L Alanine Aminotransferase 15 0-40 U/L Total Protein 7.0 6.5-8.0 g/dL Albumin Level 4.4 3.5-5.0 g/dL Alkaline Phosphatase 62 39-117 U/L Lipid Panel with Reflex Reviewed date:01/17/2024 08:39:18 AM Interpretation: Performing Lab:[facility], [address] [place] [phone] Notes/Report: Triglycerides 61 <150 mg/dL Desirable Triglyceride: [...] ff Reviewed date:07/13/2024 06:10:21 PM Interpretation: Performing Lab:[facility], [address] [place] [phone] Notes/Report: White Blood Count 8.2 4.8-10.8 X10*3/uL [...] NRBC Abs Auto 0.000 0.0-0.012 X10*3/uL Comprehensive Chauncey. Panel Fa st Reviewed date:07/13/2024 06:09:35 PM Interpretation: Performing Lab:[address] [address] Notes/Report: Sodium 142 135-145 mmol/L Potassium 4.1 [...] Panel Reviewed date:07/13/2024 12:40:52 PM Interpretation: Performing Lab:[address] [address] Notes/Report: Triglycerides 69 <150 mg/dL Desirable Triglyceride: [...] (Free>4and<10) Reviewed date:07/13/2024 05:58:54 PM Interpretation: Performing Lab:[address] [address] Notes/Report: PSA,Total (Free>4and<10) 0.52 0.00-4.00 ng/mL A [...] t Reviewed date:07/13/2024 06:09:58 PM Interpretation: Performing Lab:[address] [address] Notes/Report: Urine, Clean Catch Color Urine Yellow Appearance Urine Clear PH 5.5 5.0-9.0 Glucose Urine UA Negative Negative mg/dL Urine Blood Negative Negative Specific Jemison - Urine 1.025 1.005-1.025 Urine Protein Negative Neg-Trace mg/dL Urine Ketones Negative Negative mg/dL Nitrite Urine Negative Negative Leukocyte Esterase Urine Negative Negative RBC Urine 0-2 0-2 /HPF WBC Urine 0-5 0-5 /HPF Squamous Epithelial Cell Urine 0-2 0-2 /HPF Bacteria Urine None Seen None Seen Hyaline Casts Urine 0-2 0-2 /LPF Hold Gold Reviewed date:01/16/2024 06:47:29 PM Interpretation: Performing Lab:[facility], [address] [place] [phone] Notes/Report: Hold Gold See Note Specimen held untested for 24 hours; Call to request Chemistry testing. CT chest w con Reviewed date:09/22/2024 12:30:47 PM Interpretation: Performing Lab: Notes/Report: [address] [address] [address] Scan Report Signed Patient: Nakul Aguilera MR#: [id number] : 1940 Acct:[id number] Age/Sex: 84 / M ADM Date: 09/21/24 Loc: .ED Attending Dr: Ordering Physician: Vivian Carrillo DO Date of Service: 09/21/24 Procedure(s): CT chest w IV con Accession Number(s): [id number] cc: Skinny Morales MD; Vivian Carrillo DO Report Number: [id number]: Total DLP = 566.08 mGy-cm CLINICAL HISTORY: [...] in OV> 09/21/242005 DD/ 04 TD/TT: 09/21/242004 Corporate Legal Intern: [address] [address] [address] Scan Report Signed Patient: Nakul Aguilera MR#: [id number] : 1940 Acct:[id number] Age/Sex: 84 / M ADM Date: 09/21/24 Loc: HO.ED Attending Dr: Ordering Physician: Vivian Carrillo DO Date of Service: 09/21/24 Procedure(s): CT [address] w IV con Accession Number(s): [id number] cc: Skinny Morales MD; Vivian Carrillo DO Report Number: [id number]: Total DLP = 566.08 mGy-cm CLINICAL HISTORY: [...] in OV> 09/21/242005 DD/ 04 TD/TT: 09/21/242004 Corporate Legal Intern: CT abdomen pelvis w con Reviewed date:10/02/2024 07:26:55 AM Interpretation:09-29-2024 Performing Lab: Notes/Report: [address] [place] [address] CT Scan Report Signed Patient: Nakul Aguilera MR#: [id number] : 1940 Acct:[id number] Age/Sex: 84 / M ADM Date: 09/21/24 Loc: HO.ED Attending Dr: Ordering Physician: Vivian Carrillo DO Date of Service: 09/21/24 Procedure(s): CT abdomen pelvis w IV con Accession Number(s): [id number] cc: Skinny Morales MD; Vivian Carrillo DO Report Number: [id number]: Total DLP = 1162.88 mGy-cm CLINICAL HISTORY: [...] in OV> 09/21/242001 DD/ 00 TD/TT: 09/21/242000 Corporate Legal Intern: [place] [address] [address] Scan Report Signed Patient: Nakul Aguilera MR#: [id number] : 1940 Acct:[id number] Age/Sex: 84 / M ADM Date: 09/21/24 Loc: HO.ED Attending Dr: Ordering Physician: Vivian Carrillo DO Date of Service: 09/21/24 Procedure(s): CT abdomen pelvis w IV con Accession Number(s): [id number] cc: Skinny Morales MD; Vivian Carrillo DO Report Number: [id number]: Total DLP = 1162.88 mGy-cm CLINICAL HISTORY: [...] in OV> 09/21/242001 DD/ 00 TD/TT: 09/21/242000 Corporate Legal Intern: CT cervical spine wo con Reviewed date:09/29/2024 03:36:46 PM Interpretation: Performing Lab: Notes/Report: [place] [address] [address] Scan Report Signed Patient: Nakul Aguilera MR#: [id number] : 1940 Acct:[id number] Age/Sex: 84 / M ADM Date: 09/21/24 Loc: .ED Attending Dr: Ordering Physician: Vivian Carrillo DO Date of Service: 09/21/24 Procedure(s): CT cervical spine wo IV con Accession Number(s): [id number] cc: Skinny Morales MD; Vivian Carrillo DO Report Number: [id number]: Total DLP = 499.77 mGy-cm CLINICAL HISTORY: [...] in OV> 09/21/241957 DD/ 56 TD/TT: 09/21/241956 Corporate Legal Intern: [address] [address] [address] Scan Report Signed Patient: Nakul Aguilera MR#: [id number] : 1940 Acct:[id number] Age/Sex: 84 / M ADM Date: 09/21/24 Loc: HO.ED Attending Dr: Ordering Physician: Vivian Carrillo DO Date of Service: 09/21/24 Procedure(s): CT cervical spine wo IV con Accession Number(s): [id number] cc: Skinny Morales MD; Vivian Carrillo DO Report Number: [id number]: Total DLP = 499.77 mGy-cm CLINICAL HISTORY: [...] in OV> 09/21/241957 DD/ 56 TD/TT: 09/21/241956 Corporate Legal Intern: CT head/brain wo con Reviewed date:09/22/2024 12:33:36 PM Interpretation: Performing Lab: Notes/Report: [address] [address] [address] Scan Report Signed Patient: Nakul Aguilera MR#: [id number] : 1940 Acct:[id number] Age/Sex: 84 / M ADM Date: 09/21/24 Loc: HO.ED Attending Dr: Ordering Physician: Vivian Carrillo DO Date of Service: 09/21/24 Procedure(s): CT head/brain wo IV con Accession Number(s): [id number] cc: Skinny Morales MD; Vivian Carrillo DO Report Number: [id number]: Total DLP = 818.68 mGy-cm CLINICAL HISTORY: [...] in OV> 09/21/241956 DD/ 55 TD/TT: 09/21/241955 Corporate Legal Intern: [place] [address] [address] Scan Report Signed Patient: Nakul Aguilera MR#: [id number] : 1940 Acct:[id number] Age/Sex: 84 / M ADM Date: 09/21/24 Loc: .ED Attending Dr: Ordering Physician: Vivian Carrillo DO Date of Service: 09/21/24 Procedure(s): CT head/brain wo IV con Accession Number(s): [id number] cc: Skinny Morales MD; Vivian Carrillo DO Report Number: [id number]: Total DLP = 818.68 mGy-cm CLINICAL HISTORY: [...] in OV> 09/21/241956 DD/ 55 TD/TT: 09/21/241955 Corporate Legal Intern: Reason For Referral Reason balance problems Diagnosis 1 Balance problems (R2 6.89) Referral Organization Skinny Morales MD Referring Provider First Name Skinny Referring Provider Last Name Andrew Referring Provider Speciality Internal M edicine Referred Provider Lala Boogie Referred Provider Specialty Neurology General Notes Akua Gale 0 09/29/2024 03:01:00 PM > referral info faxed, Akua Gale 10/02/2024 08:04:18 AM referral info mailed to patient, Pamela Diaz 10/23/2024 03:13:58 PM >OFFICE NOTE RECD Referral Priority Routine Referral Appointment Date 10/21/2024 Medications Medication SIG (Take, Route, Frequency, Duration) [...] Intramuscular 12/26/2017 Administered pt had vaccine at [facility] on [place] , [place]. 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) Active confirmed Problem 768990923 Peripheral vascu lar disease (I73.9) Active confirmed Problem 50405568 Unsteady gait (R26.81) Active confirme d Problem 041813778 Pure hypercholesterolemia (E78.00) Active confirmed Problem 526160561380213 Atherosclerosis of both carotid arteries (I65.23) Active confirmed Problem Problem with balance (508950175) Balance problems (R26.89) Active confirmed Vital Signs Blood pressure diastolic 66 mm Hg 09/29/2024 mehrdad ght is down 3 pounds since 07-20-24 Height 72 in 09/29/2024 weight is down 3 pounds since 07-20-24 Blood pressure systolic 104 mm Hg 09/29/2024 weig ht is down 3 pounds since 07-20-24 Weight 234 lbs 09/29/2024 weight is down 3 pounds since 07-20-24 BMI 31.73 kg/m2 09/29/2024 weight is down 3 pounds since 07-20-24 Encounters Encounter Location Date Provider Diagnosis Skinny Morales MD [address] [place] [id number] 01/16/2024 Skinny Morales Pure hypercholestero lemia E78.00 and Encounter for immunization Z23 Skinny Morales MD [address] [place] [id number] 07/13/2024 Skinny Morales Pure hypercholestero lemia E78.00 Skinny Morales MD [address] [place] [id number] 01/23/2024 Skinny Morales Pure hypercholestero lemia E78.00 Skinny Morales MD [address] [place] [id number] 07/20/2024 Skinny Morales Anxiety F41.9 ; Unst jennifer gait R26.81 ; Foot drop, left M21.372 and Pure hypercholesterolemia E78.00 Skinny Morales MD [address] [place] [id number] 09/29/2024 Skinny Morales Balance problems R26 .89 ; Peripheral vascular disease I73.9 and Adrenal adenoma, unspecified laterality D35.00 Skinny Morales MD [address] [place] [id number] 09/22/2024 Skinny Morales Assessments Encounter Date Diagnosis (ICD Code) Assessment Notes Treatment Notes Treatment Clinical Notes Section Notes 01/16/2024 Pure hypercholesterolemia (ICD-10 - E78.00) 01/16/2024 Encounter for immunization (ICD-10 - Z23) 07/13/2024 Pure hypercholesterolemia (ICD-10 - E78.00) 01/23/2024 Pure hypercholesterolemia (ICD-10 - E78.00) doing [...] the house, will contiue to monitor 09/29/2024 Balance problems (ICD-10 - R26.89) will refer to neurology at [facility] 09/29/2024 Peripheral vascular disease (ICD-10 - I73.9) to see dr pace this weeki 07/20/2024 Foot drop, left (ICD -10 - M21.372) advised to use afo brace 09/29/2024 Adrenal adenoma, unspecified laterality (ICD-10 - D35.00) no change in 9 years 07/20/2024 Pure hypercholesterolemia (ICD-10 - E78.00) stable, will continue current regiment Plan Of Treatment Pending Test Test Name Order Date Electrocardiogram (EKG) 03/30/2014 Electrocardiogram (EKG) 05/24/2016 Electrocardiogram (EKG) 07/02/2019 XR CHEST 2 VIEW PA & LAT 01/21/2012 XR LUMBAR SPINE 4+ VIEWS 07/28/2018 US LEG RT VENOUS DOPPLER 07/30/2011 US carotid duplex BI 01/16/2022 Next Appt Details Provider Name:Skinny jansen, 11/30/2024 02:00:00 PM, [address] [place] [address], [address], [place], [place], [phone], Provider Name:Skinny jansen, 01/14/2025 07:30:00 AM, [address] [place] [address], [address], [place], [place], [phone], Provider Name:Skinny beachr, 01/21/2025 01:45:00 PM, [address] [place] [address], [address], [place], [place], [phone], Provider Name:Skinny Templeton ier, 07/16/2025 07:30:00 AM, [address] [place] [address], [address], [place], [place], [phone], Provider Name:Skinny Templeton ier, 07/23/2025 01:00:00 PM, [address] [place] [address], [address] [facility], [place], [place], [phone], Insurance Providers Payer Name Payer Address Payer Phone Subscriber Number Group Number Insured Name Patient Relationship to Insured Coverage Start Date Coverage End Date MEDICARE NHIC [address] [place] [id number] Self - patient is the insured MEDEX BC OF [facility] [address] [place] [address] [id number] Self - patient is the insured Medical (General) History Medical History History ICD Code disc disease colonoscopy due in 2011; col onoscopy 07/28/2013 hyperplastic polyp no further colonoscopy hematuria eval 2016 Inguinal adenopathy 785.6
== END 2024-11-03 09:57 | disposition home or self-care (01) ==
LOC: HO.US 09:56
PROVIDERS: PCP Internal Medicine; Visit Provider Surgery Vascular Surgery
DX: I83.11 Varicose veins of right lower extremity with inflammation (principal)
CPT/HCPCS: 93970

== ENCOUNTER → 2024-11-03 09:59 | Outpatient (BNV) | payer MEDICARE, SELFPAY | PROVIDERS: PCP Internal Medicine; Visit Provider Radiology Diagnostic Radiology | DX: I83.893 Varicose veins of bilateral lower extremities with other complications (principal) | CPT/HCPCS: 93970 ==

== ENCOUNTER 2024-11-05 14:05 | Outpatient (REF) | payer MEDICARE, SELFPAY ==
--- NOTE | ~2024-11-05 | US_ITS ---
EXAMINATION: Noninvasive assessment of the bilateral lower extremities with ARTERIAL DUPLEX, ANKLE BRACHIAL INDICES (ABIs), and PULSE VOLUME RECORDINGS (PVRs). CLINICAL INFORMATION: Peripheral vascular disease, unspecified. TECHNIQUE: Duplex Doppler techniques with waveform analysis and measurement of velocities in the bilateral common femoral, profunda femoris, superficial femoral, popliteal and tibial arteries were performed. Additionally, ankle pulse volume recordings, ankle pressure measurements and ankle brachial indices were obtained of the lower extremity arterial system bilaterally. The study was performed only at rest. COMPARISON: None FINDINGS: DIRECT DUPLEX DOPPLER FINDINGS: RIGHT LEG: Common femoral artery: 86 cm/s, phasicity: Triphasic. Profunda femoris artery: 47 cm/s, phasicity: Triphasic. Superficial femoral artery (proximal): 109 cm/s, phasicity: Biphasic. Superficial femoral artery (mid): 71 cm/s, phasicity: Biphasic. Superficial femoral artery (distal): 54 cm/s, phasicity: Biphasic. Popliteal artery: 80 cm/s, phasicity: Biphasic. Posterior tibial artery: 44 cm/s, phasicity: [Biphasic. Peroneal artery: No color Doppler flow. Anterior tibial artery: 37 cm/s, phasicity: Biphasic. Dorsalis pedis artery: 117 cm/s, phasicity:Reversal biphasic. LEFT LEG: Common femoral artery: 103 cm/s, phasicity: Biphasic. Profunda femoris artery: 52 cm/s, phasicity: Biphasic. Superficial femoral artery (proximal): 74 cm/s, phasicity: Biphasic. Superficial femoral artery (mid): 65 cm/s, phasicity: Biphasic. Superficial femoral artery (distal): 45 cm/s, phasicity: Biphasic. Popliteal artery: 46 cm/s, phasicity: Biphasic. Posterior tibial artery: 24 cm/s, phasicity: Monophasic. Peroneal artery: No color Doppler flow. Anterior tibial artery: 50 cm/s, phasicity: Biphasic. Dorsalis pedis artery: 92 cm/s, phasicity: [Biphasic. BRACHIAL PRESSURES: Right: 122 Left: 123 ANKLE PRESSURES: Right: PT 150, DP 148 Left: PT 148, DP 142 ANKLE-BRACHIAL INDEX: Right: 1.22 Left: 1.20 ANKLE PVR WAVEFORMS: Right: Normal Left: Normal US/US arterial duplex BI w/ INO IMPRESSION: Right leg: Mild to moderate inflow disease throughout the interrogated vessels. 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 Left leg: Mild to moderate inflow disease involving mostly from the popliteal to the dorsalis pedis arteries. 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 INO Reference: - >1.4 = calcified vessels - 0.9 - 1.4 = normal - no significant arterial disease - 0.7 - 0.89 = mild peripheral arterial disease - 0.51 - 0.69 = moderate peripheral arterial disease - 0.50 = severe peripheral arterial disease - < .30 = critical arterial disease Electronically signed by: Shaheen Chapman MD 11/05/2024 03:48 PM EDT
--- OUTSIDE RECORDS SUMMARY | 2024-11-05 14:10 | XMS_ITS | Patient Health Record ---
Author Organization [facility] Address [address] [place] [address] Care Team Providers Care Orchid Transplanter Name Role Phone Skinny Morales MD Primary Care Provider Charles Zamudio [phone] Reason For Referral No Information Medications Medication SIG (Take, Route, Frequency, Duration) Notes Start Date End Date Status Colyte with Flavor Packs 227.1 GM as directed Orally as directed for 1 day(s) 06/02/2013 Active Aspir-81 Active Problems Problem Type SNOMED Code ICD Code Onset Dates Problem Status W/U Status Risk Notes Problem Screening for colon cancer (282785354) Screening for colon cancer (V76.51) Active confirmed Problem Long-term current use of aspirin (3859451701050 03) Aspirin long-term use (V58.66) Active confirmed Plan Of Treatment Future Test Test Name Order Date COLONOSCOPY 06/02/2013 Insurance Providers Payer Name Payer Address Payer Phone Subscriber Number Group Number Insured Name Patient Relationship to Insured Coverage Start Date Coverage End Date MEDICARE OF [place] [address] [facility] [place] [id number] Self - patient is the insured MEDEX ATTN CLAIMS [address] [place] [address] [id number] Self - patient is the insured Medical (General) History Medical History History ICD Code Denies [place],DM,CVA,Lung disease,renal dise ase Colonoscopy in 08/2001-neg. 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
--- OUTSIDE RECORDS SUMMARY | 2024-11-05 14:10 | XMS_ITS | Clinical Summary ---
Author Organization [facility] Address [address] [place] [address] Care Team Providers Care Cafeteria Operator Name Role Phone Skinny Morales MD Primary Care Provider +1- [phone] Allergies No known active allergies Medications Medication [...] age to complete this topic Care Teams Cafeteria Operator Relationship Specialty Start Date End Date Skinny Morales MD [address] [place] [address] PCP - General Internal Medicine 02/14/18
--- OUTSIDE RECORDS SUMMARY | 2024-11-05 14:10 | XMS_ITS | Patient Health Record ---
Author Organization Skinny Morales MD Address [address] [place], [place] [id number] Care Team Providers Care Acidizer Helper Name Role Phone Skinny Morales Primary Care Provider Allergies No Known Allergies Results Component Value Reference Range Notes Liver Panel Reviewed date:01/17/2024 08:37:55 AM Interpretation: Performing Lab:[facility], [address] [place] [phone] Notes/Report: Bilirubin Total 0.6 0.0-1.0 mg/dL Bilirubin Direct 0.2 0.0-0.5 mg/dL Aspartate Amino Transferase 22 5-37 U/L Alanine Aminotransferase 15 0-40 U/L Total Protein 7.0 6.5-8.0 g/dL Albumin Level 4.4 3.5-5.0 g/dL Alkaline Phosphatase 62 39-117 U/L Lipid Panel with Reflex Reviewed date:01/17/2024 08:39:18 AM Interpretation: Performing Lab:[facility], [address] [place] [phone] Notes/Report: Triglycerides 61 <150 mg/dL Desirable Triglyceride: [...] ff Reviewed date:07/13/2024 06:10:21 PM Interpretation: Performing Lab:[facility], [address] [place] [phone] Notes/Report: White Blood Count 8.2 4.8-10.8 X10*3/uL [...] 0.0-0.2 /100WBC Neutrophils Absolute Auto 4.2 2.0-8.3 x10*3/uL Imm Gran Abs Auto 0.02 0.00-0.03 X10*3/uL Lymphocytes Absolute Auto 2.9 1.2-4.9 X10*3/uL Monocytes Absolute Auto 0.7 0.1-1.2 X10*3/uL Eosinophils Absolute Auto 0.4 0.0-0.4 X10*3/uL Basophils Absolute Auto 0.1 0.0-0.2 X10*3/uL NRBC Abs Auto 0.000 0.0-0.012 X10*3/uL Comprehensive Hollis. Panel Fa st Reviewed date:07/13/2024 06:09:35 PM Interpretation: Performing Lab:[address] [phone] Notes/Report: Sodium 142 135-145 mmol/L Potassium 4.1 [...] Panel Reviewed date:07/13/2024 12:40:52 PM Interpretation: Performing Lab:[address] [phone] Notes/Report: Triglycerides 69 <150 mg/dL Desirable Triglyceride: [...] (Free>4and<10) Reviewed date:07/13/2024 05:58:54 PM Interpretation: Performing Lab:[address] [address] Notes/Report: PSA,Total (Free>4and<10) 0.52 0.00-4.00 ng/mL A [...] t Reviewed date:07/13/2024 06:09:58 PM Interpretation: Performing Lab:[facility], [address] [place] [phone] Notes/Report: Urine, Clean Catch Color Urine Yellow Appearance Urine Clear PH 5.5 5.0-9.0 Glucose Urine UA Negative Negative mg/dL Urine Blood Negative Negative Specific Hendricks - Urine 1.025 1.005-1.025 Urine Protein Negative Neg-Trace mg/dL Urine Ketones Negative Negative mg/dL Nitrite Urine Negative Negative Leukocyte Esterase Urine Negative Negative RBC Urine 0-2 0-2 /HPF WBC Urine 0-5 0-5 /HPF Squamous Epithelial Cell Urine 0-2 0-2 /HPF Bacteria Urine None Seen None Seen Hyaline Casts Urine 0-2 0-2 /LPF Hold Gold Reviewed date:01/16/2024 06:47:29 PM Interpretation: Performing Lab:[facility], [address] [place] [phone] Notes/Report: Hold Gold See Note Specimen held untested for 24 hours; Call to request Chemistry testing. CT chest w con Reviewed date:09/22/2024 12:30:47 PM Interpretation: Performing Lab: Notes/Report: [address] [address] [address] Scan Report Signed Patient: Nakul Aguilera MR#: [id number] : 1940 Acct:[id number] Age/Sex: 84 / M ADM Date: 09/21/24 Loc: HO.ED Attending Dr: Ordering Physician: Vivian Carrillo DO Date of Service: 09/21/24 Procedure(s): CT chest w IV con Accession Number(s): [id number] cc: Skinny Morales MD; Vivian Carrillo DO Report Number: [id number]: Total DLP = 566.08 mGy-cm CLINICAL HISTORY: [...] in OV> 09/21/242005 DD/ 04 TD/TT: 09/21/242004 Data Warehousing Engineer: [address] [address] [address] Scan Report Signed Patient: Nakul Aguilera MR#: [id number] : 1940 Acct:[id number] Age/Sex: 84 / M ADM Date: 09/21/24 Loc: HO.ED Attending Dr: Ordering Physician: Vivian Carrillo DO Date of Service: 09/21/24 Procedure(s): CT [facility] [facility] w IV con Accession Number(s): [id number] cc: Skinny Morales MD; Vivian Carrillo DO Report Number: [id number]: Total DLP = 566.08 mGy-cm CLINICAL HISTORY: [...] of normal in diameter. There is no pneumoth orax or focal consolidation. There is mild scarri [...] in OV> 09/21/242005 DD/ 04 TD/TT: 09/21/242004 Data Warehousing Engineer: CT abdomen pelvis w con Reviewed date:10/02/2024 07:26:55 AM Interpretation:09-29-2024 Performing Lab: Notes/Report: [address] [place] [address] CT Scan Report Signed Patient: Nakul Aguilera MR#: [id number] : 1940 Acct:[id number] Age/Sex: 84 / M ADM Date: 09/21/24 Loc: HO.ED Attending Dr: Ordering Physician: Vivian Carrillo DO Date of Service: 09/21/24 Procedure(s): CT abdomen pelvis w IV con Accession Number(s): [id number] cc: Skinny Morales MD; Vivian Carrillo DO Report Number: [id number]: Total DLP = 1162.88 mGy-cm CLINICAL HISTORY: [...] in OV> 09/21/242001 DD/ 00 TD/TT: 09/21/242000 Data Warehousing Engineer: [place] [address] [address] Scan Report Signed Patient: Nakul Aguilera MR#: [id number] : 1940 Acct:[id number] Age/Sex: 84 / M ADM Date: 09/21/24 Loc: HO.ED Attending Dr: Ordering Physician: Vivian Carrillo DO Date of Service: 09/21/24 Procedure(s): CT abd omen pelvis w IV con Accession Number(s): [id number] cc: Skinny Morales MD; Vivian Carrillo DO Report Number: [id number]: Total DLP = 1162.88 mGy-cm CLINICAL HISTORY: [...] in OV> 09/21/242001 DD/ 00 TD/TT: 09/21/242000 Data Warehousing Engineer: CT cervical spine wo con Reviewed date:09/29/2024 03:36:46 PM Interpretation: Performing Lab: Notes/Report: [place] [address] [address] Scan Report Signed Patient: Nakul Aguilera MR#: [id number] : 1940 Acct:[id number] Age/Sex: 84 / M ADM Date: 09/21/24 Loc: .ED Attending Dr: Ordering Physician: Vivian Carrillo DO Date of Service: 09/21/24 Procedure(s): CT cervical spine wo IV con Accession Number(s): [id number] cc: Skinny Morales MD; Vivian Carrillo DO Report Number: [id number]: Total DLP = 499.77 mGy-cm CLINICAL HISTORY: [...] in OV> 09/21/241957 DD/ 56 TD/TT: 09/21/241956 Data Warehousing Engineer: [address] [address] [address] Scan Report Signed Patient: Nakul Aguilera MR#: [id number] : 1940 Acct:[id number] Age/Sex: 84 / M ADM Date: 09/21/24 Loc: HO.ED Attending Dr: Ordering Physician: Vivian Carrillo DO Date of Service: 09/21/24 Procedure(s): CT cervical spine wo IV con Accession Number(s): [id number] cc: Skinny Morales MD; Vivian Carrillo DO Report Number: [id number]: Total DLP = 499.77 mGy-cm CLINICAL HISTORY: ne ck trauma CT of the cervical s pine without contrast. No comparison. Findings: No acute fractures a re seen. There are advanced degenerative changes. There is mild multil evel malalignment likely degenerative in nature. There is fusion of the C2- 3 and C3-4 facet joints bilaterally. There is mild calcification adjace nt to the dens with small erosions of the adjacent portion of C1 suspic ious for underlying CPPD. There is severe multilevel spinal and foraminal stenosis. Impression: No acute fractures. Other findings as above. This document has be en electronically signed by: Rashaun Montoya MD on 2024 19:57:00 Dictated By: Otoniel Marcos MD Signed By: <Electronically signed by Otoniel Marcos MD in OV> 09/21/241957 DD/ 56 TD/TT: 09/21/241956 Data Warehousing Engineer: CT head/brain wo con Reviewed date:09/22/2024 12:33:36 PM Interpretation: Performing Lab: Notes/Report: [address] [address] [address] Scan Report Signed Patient: Nakul Aguilera MR#: [id number] : 1940 Acct:[id number] Age/Sex: 84 / M ADM Date: 09/21/24 Loc: HO.ED Attending Dr: Ordering Physician: Vivian Carrillo DO Date of Service: 09/21/24 Procedure(s): CT head/brain wo IV con Accession Number(s): [id number] cc: Skinny Morales MD; Vivian Carrillo DO Report Number: [id number]: Total DLP = 818.68 mGy-cm CLINICAL HISTORY: [...] in OV> 09/21/241956 DD/ 55 TD/TT: 09/21/241955 Data Warehousing Engineer: [address] [address] [address] Scan Report Signed Patient: Nakul Aguilera MR#: [id number] : 1940 Acct:[id number] Age/Sex: 84 / M ADM Date: 09/21/24 Loc: HO.ED Attending Dr: Ordering Physician: Vivian Carrillo DO Date of Service: 09/21/24 Procedure(s): CT head/brain wo IV con Accession Number(s): [id number] cc: Skinny Morales MD; Vivian Carrillo DO Report Number: [id number]: Total DLP = 818.68 mGy-cm CLINICAL HISTORY: [...] in OV> 09/21/241956 DD/ 55 TD/TT: 09/21/241955 Data Warehousing Engineer: US venous duplex LE BI Reviewed date:11/03/2024 12:10:47 PM Interpretation: Performing Lab: Notes/Report: [address] [address] Ultrasound Report Signed Patient: Nakul Aguilera MR#: [id number] : 1940 Acct:[id number] Age/Sex: 84 / M ADM Date: 11/03/24 Loc: HO.US Attending Dr: Kenton Casas MD Ordering Physician: Kenton Casas MD Date of Service: 11/03/24 Procedure(s): US venous duplex LE BI Accession Number(s): [id number] cc: Skinny Morales MD; Kenton Casas MD EXAMINATION: US LOWER EXTREMITY VENOUS (REFLUX EXAM), BILATERAL CLINICAL INFORMATION: Varices. COMPARISON: None. TECHNIQUE: Color flow triplex imaging and compression Doppler was performed to evaluate both the deep and the superficial systems bilaterally. To evaluate the superficial system, the examination was performed in the upright position. Color-flow Doppler ultrasound and compression ultrasound were utilized. In addition, maneuvers were utilized to demonstrate reflux. FINDINGS: 1. DEEP VENOUS ULTRASOUND OF THE RIGHT LOWER EXTREMITY: Common Femoral Vein: Compressible, normal respiratory variation and augmented flow. Femoral Vein: Compressible, normal color flow and augmentation. Popliteal Vein: Compressible, normal augmentation. Deep Reflux: 2472 ms at the popliteal vein. There is no evidence of a Benavides's cyst. 2. SUPERFICIAL ULTRASOUND WITH DOPPLER OF RIGHT LOWER EXTREMITY: GREAT SAPHENOUS VEIN: Saphenofemoral Junction: 0.8 cm; Reflux: 0 ms Proximal Thigh: 0.2 cm; Reflux: 0 ms Mid Thigh: Not seen. Distal Thigh: Not seen. At Knee: Not seen. Proximal Calf: Not seen. Mid Calf: Not seen. Distal Calf: Not seen. DUPLICATED MEDIAL GREAT SAPHENOUS VEIN: Diameter: None imaged Reflux: NA DUPLICATED LATERAL GREAT SAPHENOUS VEIN: Diameter: 0.4 cm. Reflux: NA SMALL SAPHENOUS VEIN: Saphenopopliteal Junction: 0.4 cm; Reflux: 0 ms Proximal: 0.2 cm; Reflux: 0 ms Distal: 0.2 cm; Reflux: 0 ms VEIN OF GIACOMINI: Size: 0.1 cm. Reflux: NA PERFORATORS: Location: Proximal to mid calf. Size: 0.3-0.4 cm. Reflux: NA VARICOSITIES: Location: Accessory saphenous vein proximal segment. Size: 0.3 cm Reflux: 2372 ms. 3. DEEP VENOUS ULTRASOUND OF THE LEFT LOWER EXTREMITY: Common Femoral Vein: Compressible, normal respiratory variation and augmented flow. Femoral Vein: Compressible, normal color flow and augmentation. Popliteal Vein: Compressible, normal augmentation. Deep Reflux: 2348 ms at the popliteal vein. There is no evidence of a Benavides's cyst. 4. SUPERFICIAL ULTRASOUND WITH DOPPLER OF LEFT LOWER EXTREMITY: GREAT SAPHENOUS VEIN: Saphenofemoral Junction: 0.7 cm; Reflux: 0 ms Proximal Thigh: 0.2 cm; Reflux: 0 ms Mid Thigh: 0.2 cm; Reflux: 0 ms Distal Thigh: 0.1 cm; Reflux: 0 ms At Knee: Not seen. Proximal Calf: 0.3 cm; Reflux: 1092 ms Mid Calf: 0.1 cm; Reflux: 0 ms Distal Calf: 0.1 cm; Reflux: 0 ms DUPLICATED MEDIAL GREAT SAPHENOUS VEIN: Diameter: None imaged Reflux: NA DUPLICATED LATERAL GREAT SAPHENOUS VEIN: Diameter: 0.2 cm. Reflux: NA SMALL SAPHENOUS VEIN: Saphenopopliteal Junction: 0.2 cm; probable chronic thrombus. Proximal: Not seen. Distal: 0.1 cm; Reflux: 0 ms VEIN OF GIACOMINI: Size: NA Reflux: NA PERFORATORS: Location: Mid calf. Size: 0.2 cm. Reflux: NA VARICOSITIES: Location: None Imaged Size: NA Reflux: NA US/US venous duplex LE BI IMPRESSION: Right: Venous reflux in the deep system, popliteal vein. Varices with reflux in the accessory saphenous vein. Left: Venous insufficiency, great saphenous vein below the knee. Venous reflux in the deep venous system, popliteal vein. Probable old thrombus, small saphenous vein at the junction. No gross varices. . Electronically signed by: Shaheen Chapman MD 11/03/2024 11:02 AM EDT Dictated By: Shaheen Caldera MD Signed By: <Electronically signed by Shaheen Heard MD in OV> 11/03/24 1102 DD/ 1016 TD/TT: 11/03/24 1045 Data Warehousing Engineer: [place] [address] Ultrasound Report Signed Patient: Nakul Aguilera MR#: [id number] : 1940 Acct:[id number] Age/Sex: 84 / M ADM Date: 11/03/24 Loc: .US Attending Dr: Kenton Casas MD Ordering Physician: Kenton Casas MD Date of Service: 11/03/24 Procedure(s): US cuate ous duplex LE BI Accession Number(s): [id number] cc: Skinny Morales MD; Kenton Casas MD EXAMINATION: US LOWER EXTREMITY VENOUS (REFLUX EXAM), BILATERAL CLINICAL INFORMATION: Varices. COMPARISON: None. TECHNIQUE: Color flow triplex imaging and compression Doppler was performed to evaluate both the de ep and the superficial systems bilaterally. To evaluate the superfi cial system, the examination was performed in the upright position. Color-flow Doppler ultrasound and compression ultrasound were utilized. In addition, maneuvers were utilized to demonstrate reflux. FINDINGS: 1. DEEP VENOUS ULTRASOUND OF THE RIGHT LOWER EXTREMITY: Common Femoral Vein: Compressible, normal respiratory variation and augmented flow. Femoral Vein: Compressible, normal color flow and augmentation. Popliteal Vein: Compressible, normal augmentation. Deep Reflux: 2472 ms at the popliteal vein. There is no evidence of a Benavides's cyst. 2. SUPERFICIAL ULTRASOUND WITH DOPPLER OF RIGHT LOWER EXTREMITY: GREAT SAPHENOUS VEIN: Saphenofemoral Junct ion: 0.8 cm; Reflux: 0 ms Proximal Thigh: 0.2 cm; Reflux: 0 ms Mid Thigh: Not seen. Distal Thigh: Not seen. At Knee: Not seen. Proximal Calf: Not seen. Mid Calf: Not seen. Distal Calf: Not seen. DUPLICATED MEDIAL GR EAT SAPHENOUS VEIN: Diameter: None imaged Reflux: NA DUPLICATED LATERAL G REAT SAPHENOUS VEIN: Diameter: 0.4 cm. Reflux: NA SMALL SAPHENOUS VEIN: Saphenopopliteal Junction: 0.4 cm; Reflux: 0 ms Proximal: 0.2 cm; Reflux: 0 ms Distal: 0.2 cm; Refl ux: 0 ms VEIN OF GIACOMINI: Size: 0.1 cm. Reflux: NA PERFORATORS: Location: Proximal t o mid calf. Size: 0.3-0.4 cm. Reflux: NA VARICOSITIES: Location: Accessory saphenous vein proximal segment. Size: 0.3 cm Reflux: 2372 ms. 3. DEEP VENOUS ULTRASOUND OF THE LEFT LOWER EXTREMITY: Common Femoral Vein: Compressible, normal respiratory variation and augmented flow. Femoral Vein: Compressible, normal color flow and augmentation. Popliteal Vein: Compressible, normal augmentation. Deep Reflux: 2348 ms at the popliteal vein. There is no evidence of a Benavides's cyst. 4. SUPERFICIAL ULTRASOUND WITH DOPPLER OF LEFT LOWER EXTREMITY: GREAT SAPHENOUS VEIN: Saphenofemoral Junct ion: 0.7 cm; Reflux: 0 ms Proximal Thigh: 0.2 cm; Reflux: 0 ms Mid Thigh: 0.2 cm; Reflux: 0 ms Distal Thigh: 0.1 cm ; Reflux: 0 ms At Knee: Not seen. Proximal Calf: 0.3 c m; Reflux: 1092 ms Mid Calf: 0.1 cm; Reflux: 0 ms Distal Calf: 0.1 cm; Reflux: 0 ms DUPLICATED MEDIAL GR EAT SAPHENOUS VEIN: Diameter: None imaged Reflux: NA DUPLICATED LATERAL G REAT SAPHENOUS VEIN: Diameter: 0.2 cm. Reflux: NA SMALL SAPHENOUS VEIN: Saphenopopliteal Junction: 0.2 cm; probable chronic thrombus. Proximal: Not seen. Distal: 0.1 cm; Refl ux: 0 ms VEIN OF GIACOMINI: Size: NA Reflux: NA PERFORATORS: Location: Mid calf. Size: 0.2 cm. Reflux: NA VARICOSITIES: Location: None Imaged Size: NA Reflux: NA U S/US venous duplex LE BI IMPRESSION: Right: Venous reflux in the deep system, popliteal vein. Varices with reflux in the access ory saphenous vein. Left: Venous insufficiency, great saphenous vein below the knee. Venous reflux in the deep venous system, popliteal vein. Probable old thrombu s, small saphenous vein at the junction. No gross varices. . Electronically ashley d by: Shaheen Chapman MD 11/03/2024 11:02 AM EDT Dictated By: Shaheen Oscar MD Signed By: <Electronically signed by Shaheen Heard MD in OV> 11/03/24 1102 DD/ 1016 TD/TT: 11/03/24 1045 Data Warehousing Engineer: Reason For Referral Reason balance problems Diagnosis [...] Intramuscular 12/26/2017 Administered pt had vaccine at [facility] on [address] , [place]. Fluarix Quadrivalent IM Intramuscular 01/21/2018 Administe red [...] W/U Status Risk Notes Problem Venous thrombosis (124391467) Venous thrombosis (453.9) Active confirmed Problem 43198160 Hematuria (R31.9) Active confirmed Problem 15191497 Anxiety (F41.9) Active confirmed Problem 949758904 Lumbar disc dise ase (M51.9) Active confirmed Problem 67790447 RBBB (I45.10) Active confirmed Problem 004416176 Cervical disc di sease (M50.90) Active confirmed Problem 993551083 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) Active confirmed Problem 091110099 Peripheral vascu lar disease (I73.9) Active confirmed Problem 45019848 Unsteady gait (R26.81) Active confirme d Problem 848475947 Pure hypercholesterolemia (E78.00) Active confirmed Problem 453389303949063 Atherosclerosis of both carotid arteries (I65.23) Active confirmed Problem Problem with balance (643897208) Balance problems (R26.89) Active confirmed Vital Signs [...] Skinny Morales MD [address] [place] [id number] 01/16/2024 Skinny Morales Pure hypercholestero lemia E78.00 and Encounter for immunization Z23 Skinny Morales MD [address] [place] [id number] 07/13/2024 Skinny Morales Pure hypercholestero lemia E78.00 Skinny Morales MD [address] [place] [id number] 01/23/2024 Skinny Morales Pure hypercholestero lemia E78.00 Skinny Morales MD [address] [place] [id number] 07/20/2024 Skinny Morales Anxiety F41.9 ; Unst jennifer gait R26.81 ; Foot drop, left M21.372 and Pure hypercholesterolemia E78.00 Skinny Morales MD [address] [place] [id number] 09/29/2024 Skinny Morales Balance problems R26 .89 ; Peripheral vascular disease I73.9 and Adrenal adenoma, unspecified laterality D35.00 Skinny Morales MD [address] [place], [place] [phone] 09/22/2024 Skinny oMrales Assessments Encounter Date Diagnosis (ICD Code) Assessment [...] - R26.89) [place] [facility] [place] Peripheral vascular disease (ICD-10 - I73.9) to see dr casas this weeki 07/20/2024 Foot drop, left (ICD [...] Details Provider Name:Skinny jansen, 11/30/2024 02:00:00 PM, [address], [address], [place], [place], [phone], Provider Name:Skinny beachr, 01/14/2025 07:30:00 AM, [address] [place] [address], [address], [place], [place], [phone], Provider Name:Skinny Templeton ier, 01/21/2025 01:45:00 PM, [address] [place] [address], [address], [place], [phone], Provider Name:Skinny Templeton ier, 07/16/2025 07:30:00 AM, [address] [place] [address], Suite [facility], [place], [place], [phone], Provider Name:Skinny Templeton ier, 07/23/2025 01:00:00 PM, [address] [place] [address], Suite [facility], [place], [phone], Insurance Providers Payer Name Payer Address Payer Phone Subscriber Number Group Number Insured Name Patient Relationship to Insured Coverage Start Date Coverage End Date MEDICARE [employer] ROBIN [address] [place] [id number] [id number] Self - patient is the insured [employer] [place] [address] [place] [id number] Self - patient is the insured Medical (General) History Medical History History ICD Code disc disease colonoscopy due in 2011; col onoscopy 07/28/2013 hyperplastic polyp no further colonoscopy hematuria eval 2016 Inguinal adenopathy 785.6
== END 2024-11-05 14:06 | disposition home or self-care (01) ==
LOC: HO.US 14:05
PROVIDERS: PCP Internal Medicine; Visit Provider Surgery Vascular Surgery
DX: I73.9 Peripheral vascular disease, unspecified (principal)
CPT/HCPCS: 93922; 93925

== ENCOUNTER → 2024-11-05 14:08 | Outpatient (BNV) | payer MEDICARE, SELFPAY | PROVIDERS: PCP Internal Medicine; Visit Provider Radiology Diagnostic Radiology | DX: I73.9 Peripheral vascular disease, unspecified (principal) | CPT/HCPCS: 93922; 93925 ==

== ENCOUNTER 2024-11-10 08:48 | Outpatient (AMB) | payer MEDICARE, SELFPAY ==
--- NOTE | 2024-11-10 08:58 | A.OFFVIS_ITS ---
Vital Signs 11/10/24 08:59 Height 6 ft 2 in Weight 233 lb BMI 29.9 Intake Visit Reasons: follow up s/p /Arterial US 11/03-11/05 Intake Note: follow up for LE discoloration, Right foot worse than Left LE. no new complaints Accompanied by: Spouse Allergies No Known Allergies Allergy (Verified 11/10/24 09:03) [facility] follow up s/p /Arterial US 11/03-11/05: Details: The patient is an 84-year-old male presenting for follow-up regarding arterial and venous testing. The patient has a history of peripheral edema, initially suspected to be related to venous insufficiency due to leg swelling and discoloration. Recent venous testing returned normal results, indicating no significant venous pathology. The patient reports stiffness in the foot, associated with decreased sensation rather than pain. He has a history of spinal stenosis, with surgery performed approximately 15 years ago, by Dr. Child. Balance issues have led to a referral for nerve conduction studies to assess for potential neuropathy. The patient denies any history of diabetes and has not been on blood thinners. He now presents to us for vascular follow-up with arterial and venous testing. FOR[facility], [facility] Medical History Mild intermittent asthma Dyspnea on exertion Social History Patient Tobacco Use Status: Former Tobacco user Review of Systems Const Reports as per HPI ENT Reports no additional complaints Card Denies chest pain, Denies chest pain at rest and Denies chest pain with activity Resp Denies chest congestion and Denies cough GI Reports no additional complaints Musc Details: pain over varicosities, aching of lower extremities, swelling, cramping, heaviness and tiredness, itching Denies abnormal gait Skin/Breast Reports pruritus and Denies wounds Neuro Reports no additional complaints and Denies abnormal gait Psych Denies no additional complaints Physical Exam Vital Signs: BMI result Body Mass Index 29.9 Const General: cooperative, healthy appearing and comfortable Orientation/consciousness: oriented to person, oriented to place and oriented to time Neck Carotids: no bruits Chest Chest palpation & inspection: normal inspection of the chest and normal palpation of entire chest wall Resp Effort & Inspection: normal respiratory effort and able to speak in complete sentences Cardio Rate: regular rate Heart sounds: S1 normal heart sound present and S2 normal heart sound present Peripheral pulses: Peripheral pulses 2+ throughout GI Inspection: Yes normal to inspection Skin Other: +2 edema, right greater than left with skin discoloration more towards the feet General skin exam: dry skin Neuro General: oriented to person, oriented to place and oriented to time Extrem Right lower extremity: full ROM, normal capillary refill and edema Left lower extremity: full ROM, normal capillary refill and edema Psych Mental Status: mental status grossly normal Results Reviewed Results Reviewed: Brief summary of venous insufficiency testing is as follows: right great saphenous vein: negative right small saphenous vein: negative right accessory vein: none present left great saphenous vein: negative left small saphenous vein: negative left accessory vein: none present Please note there is no evidence of any venous aneurysms or significant tortuosity Arterial testing dated 11/05/2024 demonstrates INO on the right of 1.22 and on the left of 1.20 Assessment & Plan Assessment & Plan (1) PAD (peripheral artery disease): Code(s): I73.9 - Peripheral vascular disease, unspecified Category: Medical Plan: In terms of his arterial disease it appears to be stable. He has minimal disease with nearly normal ABIs. I do not believe that this is the source of his issues at the current time. I have taken the liberty of reassessing this in a proximally 1 year's time just to ensure that this is stable. At that time we may assess for lymphedema as he does have significantly swollen lower extremities. (2) Varicose veins of right lower extremity with inflammation: Comment: Around 2016 - right great saphenous vein radiofrequency ablation by Dr. Ernandez Code(s): I83.11 - Varicose veins of right lower extremity with inflammation Category: Medical Plan: In short his venous insufficiency testing has shown to be negative. He does have swollen lower extremities along with some discoloration. May benefit from lymphedema pumps. At the current time I would like his neurologic issues to be addressed 1st. We can reassess this in a proximally 1 year's time. Thank you for allowing us to assist in his care. (3) Raynauds disease: Code(s): I73.00 - Raynaud's syndrome without gangrene Category: Medical Qualifiers: Raynaud?s-associated gangrene presence: without gangrene Qualified Code(s): I73.00 - Raynaud's syndrome without gangrene Plan: He does have an element of Raynaud's. At the current time would only manage this conservatively with hand and foot protection, decrease in caffeine, decrease in stressors. He is a nonsmoker. (4) Lymphedema: Code(s): I89.0 - Lymphedema, not elsewhere classified Category: Medical Plan: He does have swollen lower extremities and we readdress this in a proximally 1 year's time. (5) Back pain: Comment: 2009 - back surgery by Dr. Child Code(s): M54.9 - Dorsalgia, unspecified Category: Medical Qualifiers: Back pain location: low back pain Chronicity: chronic Back pain laterality: bilateral Sciatica presence: unspecified whether sciatica present Qualified Code(s): M54.50 - Low back pain, unspecified; G89.29 - Other chronic pain Plan: Upon discussion with him he does demonstrate symptoms of neurogenic claudication. He often has to lean forward when walking to relieve discomfort. He has had prior back surgery nearly 15 years prior. He has not been reassessed for this. Although he is being followed by Neurology. I do think he will benefit from evaluation by pain management to reassess the back and to see if there is any alternatives for this gentleman. We will place the referral for this. Thank you for allowing us to assist in his care. If there are any questions or concerns please do not hesitate to contact us. Plan Patient was informed and verbally consented to the use of an ambient scribe for clinic note documentation during this visit. Orders: Orders US arterial duplex LE BI 1 Year I73.9 - Peripheral vascular disease, unspecified Referrals Pain Management Referral G89.29 - Other chronic pain, M54.50 - Low back pain, unspecified Patient Instructions: - Follow up with pain management as scheduled. - Attend the nerve conduction study appointment. - Report any new symptoms or changes in condition to the healthcare provider. - 1 year arterial follow-up with us and potential evaluation for lymphedema at that time Coding Level of Care Code Est Pt Level 4 (60061) Complex EM visit Add On G2211 Diagnoses PAD (peripheral artery disease) I73.9 Varicose veins of right lower extremity with inflammation I83.11 Raynaud's disease without gangrene I73.00 Raynaud?s-associated gangrene presence: without gangrene Lymphedema I89.0 Chronic bilateral low back pain, unspecified whether sciatica present M54.50; G89.29 Back pain location: low back pain Chronicity: chronic Back pain laterality: bilateral Sciatica presence: unspecified whether sciatica present
[2024-11-10 08:59] VITALS: BMI 29.9
--- OUTSIDE RECORDS SUMMARY | 2024-11-10 09:06 | XMS_ITS | Patient Health Record ---
Author Organization [facility] Address [address] [place] [address] Care Team Providers Care Complex Care Nurse Practitioner Name Role Phone Skinny Morales MD Primary Care Provider Charles Zamudio [phone] Reason For Referral No Information Medications Medication SIG (Take, Route, Frequency, Duration) Notes Start Date End Date Status Colyte with Flavor Packs 227.1 GM as directed Orally as directed for 1 day(s) 06/02/2013 Active Aspir-81 Active Problems Problem Type SNOMED Code ICD Code Onset Dates Problem Status W/U Status Risk Notes Problem Screening for colon cancer (519068036) Screening for colon cancer (V76.51) Active confirmed Problem Long-term current use of aspirin ([id number] 03) Aspirin long-term use (V58.66) Active confirmed Plan Of Treatment Future Test Test Name Order Date COLONOSCOPY 06/02/2013 Insurance Providers Payer Name Payer Address Payer Phone Subscriber Number Group Number Insured Name Patient Relationship to Insured Coverage Start Date Coverage End Date MEDICARE OF [place] [address] [place] [address] [id number] Self - patient is the insured [employer] CLAIMS [address] [place] [phone] [id number] Self - patient is the insured Medical (General) History Medical History History ICD Code Denies MD,DM,CVA,Lung disease,renal dise ase Colonoscopy in 08/2001-neg. 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
--- OUTSIDE RECORDS SUMMARY | 2024-11-10 09:07 | XMS_ITS | Patient Health Record ---
Author Organization Skinny Morales MD Address [address] [place], [place] [address] Care Team Providers Care Infantry Unit Leader Name Role Phone Skinny Morales Primary Care Provider Allergies No Known Allergies Results Component Value Reference Range Notes Liver Panel Reviewed date:01/17/2024 08:37:55 AM Interpretation: Performing Lab:[facility], [address] [place] [phone] Notes/Report: Bilirubin Total 0.6 0.0-1.0 mg/dL Bilirubin Direct 0.2 0.0-0.5 mg/dL Aspartate Amino Transferase 22 5-37 U/L Alanine Aminotransferase 15 0-40 U/L Total Protein 7.0 6.5-8.0 g/dL Albumin Level 4.4 3.5-5.0 g/dL Alkaline Phosphatase 62 39-117 U/L Lipid Panel with Reflex Reviewed date:01/17/2024 08:39:18 AM Interpretation: Performing Lab:[facility], [address] [place] [address] Notes/Report: Triglycerides 61 <150 mg/dL Desirable Triglyceride: [...] 06:10:21 PM Interpretation: Performing Lab:[facility], [address] [place] [address] Notes/Report: White Blood Count 8.2 4.8-10.8 X10*3/uL [...] NRBC Abs Auto 0.000 0.0-0.012 X10*3/uL Comprehensive [place]. Panel Fa st Reviewed date:07/13/2024 06:09:35 PM Interpretation: Performing Lab:[address] [address] Notes/Report: Sodium 142 135-145 mmol/L Potassium 4.1 [...] Panel Reviewed date:07/13/2024 12:40:52 PM Interpretation: Performing Lab:[address] [address] Notes/Report: Triglycerides 69 <150 mg/dL Desirable Triglyceride: [...] (Free>4and<10) Reviewed date:07/13/2024 05:58:54 PM Interpretation: Performing Lab:[address] [address] Notes/Report: PSA,Total (Free>4and<10) 0.52 0.00-4.00 ng/mL A [...] 06:09:58 PM Interpretation: Performing Lab:[facility], [address] [place] [address] Notes/Report: Urine, Clean Catch Color Urine Yellow Appearance Urine Clear PH 5.5 5.0-9.0 Glucose Urine UA Negative Negative mg/dL Urine Blood Negative Negative Specific [place] - Urine 1.025 1.005-1.025 Urine Protein Negative Neg-Trace mg/dL Urine Ketones Negative Negative mg/dL Nitrite Urine Negative Negative Leukocyte Esterase Urine Negative Negative RBC Urine 0-2 0-2 /HPF WBC Urine 0-5 0-5 /HPF Squamous Epithelial Cell Urine 0-2 0-2 /HPF Bacteria Urine None Seen None Seen Hyaline Casts Urine 0-2 0-2 /LPF Hold Gold Reviewed date:01/16/2024 06:47:29 PM Interpretation: Performing Lab:[facility], [address] [place] [address] Notes/Report: Hold Gold See Note Specimen held untested for 24 hours; Call to request Chemistry testing. CT chest w con Reviewed date:09/22/2024 12:30:47 PM Interpretation: Performing Lab: Notes/Report: [address] [address] [address] Scan Report Signed Patient: Nakul Aguilera MR#: [id number] : 1940 Acct:[id number] Age/Sex: 84 / M ADM Date: 09/21/24 Loc: HO.ED Attending Dr: Ordering Physician: Vivian Carrillo DO Date of Service: 09/21/24 Procedure(s): CT chest w IV con Accession Number(s): [id number] cc: Skinny Morales MD; Vivian Carrillo DO Report Number: [id number]: Total DLP = 566.08 mGy-cm CLINICAL HISTORY: [...] in OV> 09/21/242005 DD/ 04 TD/TT: 09/21/242004 Eye Care Professional: [address] [address] [address] Scan Report Signed Patient: Nakul Aguilera MR#: [id number] : 1940 Acct:[id number] Age/Sex: 84 / M ADM Date: 09/21/24 Loc: HO.ED Attending Dr: Ordering Physician: Vivian Carrillo DO Date of Service: 09/21/24 Procedure(s): CT [address] w IV con Accession Number(s): [id number] cc: Skinny Morales MD; Vivian Carrillo DO Report Number: [id number]: Total DLP = 566.08 mGy-cm CLINICAL HISTORY: [...] in OV> 09/21/242005 DD/ 04 TD/TT: 09/21/242004 Eye Care Professional: CT abdomen pelvis w con Reviewed date:10/02/2024 07:26:55 AM Interpretation:09-29-2024 Performing Lab: Notes/Report: [address] [place] [address] CT Scan Report Signed Patient: Nakul Aguilera MR#: [id number] : 1940 Acct:[id number] Age/Sex: 84 / M ADM Date: 09/21/24 Loc: HO.ED Attending Dr: Ordering Physician: Vivian Carrillo DO Date of Service: 09/21/24 Procedure(s): CT abdomen pelvis w IV con Accession Number(s): [id number] cc: Skinny Morales MD; Vivian Carrillo DO Report Number: [id number]: Total DLP = 1162.88 mGy-cm CLINICAL HISTORY: [...] in OV> 09/21/242001 DD/ 00 TD/TT: 09/21/242000 Eye Care Professional: [place] [address] [address] Scan Report Signed Patient: Nakul Aguilera MR#: [id number] : 1940 Acct:[id number] Age/Sex: 84 / M ADM Date: 09/21/24 Loc: HO.ED Attending Dr: Ordering Physician: Vivian Carrillo DO Date of Service: 09/21/24 Procedure(s): CT abd omen pelvis w IV con Accession Number(s): [id number] cc: Skinny Morales MD; Vivian Carrillo DO Report Number: [id number]: Total DLP = 1162.88 mGy-cm CLINICAL HISTORY: [...] in OV> 09/21/242001 DD/ 00 TD/TT: 09/21/242000 Eye Care Professional: CT cervical spine wo con Reviewed date:09/29/2024 03:36:46 PM Interpretation: Performing Lab: Notes/Report: [place] [address] [address] Scan Report Signed Patient: Nakul Aguilera MR#: [id number] : 1940 Acct:[id number] Age/Sex: 84 / M ADM Date: 09/21/24 Loc: .ED Attending Dr: Ordering Physician: Vivian Carrillo DO Date of Service: 09/21/24 Procedure(s): CT cervical spine wo IV con Accession Number(s): [id number] cc: Skinny Morales MD; Vivian Carrillo DO Report Number: [id number]: Total DLP = 499.77 mGy-cm CLINICAL HISTORY: [...] in OV> 09/21/241957 DD/ 56 TD/TT: 09/21/241956 Eye Care Professional: [address] [address] [address] Scan Report Signed Patient: Nakul Aguilera MR#: [id number] : 1940 Acct:[id number] Age/Sex: 84 / M ADM Date: 09/21/24 Loc: HO.ED Attending Dr: Ordering Physician: Vivian Carrillo DO Date of Service: 09/21/24 Procedure(s): CT cervical spine wo IV con Accession Number(s): [id number] cc: Skinny Morales MD; Vivian Carrillo DO Report Number: [id number]: Total DLP = 499.77 mGy-cm CLINICAL HISTORY: [...] in OV> 09/21/241957 DD/ 56 TD/TT: 09/21/241956 Eye Care Professional: CT head/brain wo con Reviewed date:09/22/2024 12:33:36 PM Interpretation: Performing Lab: Notes/Report: [address] [address] [address] Scan Report Signed Patient: Nakul Aguilera MR#: [id number] : 1940 Acct:[id number] Age/Sex: 84 / M ADM Date: 09/21/24 Loc: HO.ED Attending Dr: Ordering Physician: Vivian Carrillo DO Date of Service: 09/21/24 Procedure(s): CT head/brain wo IV con Accession Number(s): [id number] cc: Skinny Morales MD; Vivian Carrillo DO Report Number: [id number]: Total DLP = 818.68 mGy-cm CLINICAL HISTORY: [...] MD on 2024 19:56:31 Dictated By: Otoniel aMrcos MD Signed By: <Electronically signed by Otoniel Marcos MD in OV> 09/21/241956 DD/ 55 TD/TT: 09/21/241955 Eye Care Professional: [address] [address] [address] Scan Report Signed Patient: Nakul Aguilera MR#: [id number] : 1940 Acct:[id number] Age/Sex: 84 / M ADM Date: 09/21/24 Loc: HO.ED Attending Dr: Ordering Physician: Vivian Carrillo DO Date of Service: 09/21/24 Procedure(s): CT head/brain wo IV con Accession Number(s): [id number] cc: Skinny Morales MD; Vivian Carrillo DO Report Number: [id number]: Total DLP = 818.68 mGy-cm CLINICAL HISTORY: [...] in OV> 09/21/241956 DD/ 55 TD/TT: 09/21/241955 Eye Care Professional: US venous duplex LE BI Reviewed date:11/03/2024 12:10:47 PM Interpretation: Performing Lab: Notes/Report: [address] [address] Ultrasound Report Signed Patient: Nakul Aguilera MR#: [id number] : 1940 Acct:[id number] Age/Sex: 84 / M ADM Date: 11/03/24 Loc: HO.US Attending Dr: Kenton Casas MD Ordering Physician: Kenton Casas MD Date of Service: 11/03/24 Procedure(s): US venous duplex LE BI Accession Number(s): [id number] cc: Skinny Morales MD; Kenton Casas MD [...] 11/03/24 1102 DD/ 1016 TD/TT: 11/03/24 1045 Eye Care Professional: [place] [address] Ultrasound Report Signed Patient: Nakul Aguilera MR#: [id number] : 1940 Acct:[id number] Age/Sex: 84 / M ADM Date: 11/03/24 Loc: .US Attending Dr: Kenton Casas MD Ordering Physician: Kenton Casas MD Date of Service: 11/03/24 Procedure(s): US cuate ous duplex LE BI Accession Number(s): [id number] cc: Skinny Morales MD; Kenton Casas MD [...] Shaheen Chapman MD 11/03/2024 11:02 AM EDT RP Dictated By: Shaheen Oscar MD Signed By: <Electronically signed by Shaheen Heard MD in OV> 11/03/24 1102 DD/ 1016 TD/TT: 11/03/24 1045 Eye Care Professional: US arterial duplex BI w/ INO Reviewed date:11/05/2024 08:33:42 PM Interpretation: Performing Lab: Notes/Report: [address] [address] Ultrasound Report Signed Patient: Nakul Aguilera MR#: [id number] : 1940 Acct:[id number] Age/Sex: 84 / M ADM Date: 11/05/24 Loc: .US Attending Dr: Kenton Casas MD Ordering Physician: Kenton Casas MD Date of Service: 11/05/24 Procedure(s): US arterial duplex BI w/ INO Accession Number(s): [id number] cc: Skinny Morales MD; Kenton Casas MD EXAMINATION: Noninvasive assessment of the bilateral lower extremities with ARTERIAL DUPLEX, ANKLE BRACHIAL INDICES (ABIs), and PULSE VOLUME RECORDINGS (PVRs). CLINICAL INFORMATION: Peripheral vascular disease, unspecified. TECHNIQUE: Duplex Doppler techniques with waveform analysis and measurement of velocities in the bilateral common femoral, profunda femoris, superficial femoral, popliteal and tibial arteries were performed. Additionally, ankle pulse volume recordings, ankle pressure measurements and ankle brachial indices were obtained of the lower extremity arterial system bilaterally. The study was performed only at rest. COMPARISON: None FINDINGS: DIRECT DUPLEX DOPPLER FINDINGS: RIGHT LEG: Common femoral artery: 86 cm/s, phasicity: Triphasic. Profunda femoris artery: 47 cm/s, phasicity: Triphasic. Superficial femoral artery (proximal): 109 cm/s, phasicity: Biphasic. Superficial femoral artery (mid): 71 cm/s, phasicity: Biphasic. Superficial femoral artery (distal): 54 cm/s, phasicity: Biphasic. Popliteal artery: 80 cm/s, phasicity: Biphasic. Posterior tibial artery: 44 cm/s, phasicity: [Biphasic. Peroneal artery: No color Doppler flow. Anterior tibial artery: 37 cm/s, phasicity: Biphasic. Dorsalis pedis artery: 117 cm/s, phasicity:Reversal biphasic. LEFT LEG: Common femoral artery: 103 cm/s, phasicity: Biphasic. Profunda femoris artery: 52 cm/s, phasicity: Biphasic. Superficial femoral artery (proximal): 74 cm/s, phasicity: Biphasic. Superficial femoral artery (mid): 65 cm/s, phasicity: Biphasic. Superficial femoral artery (distal): 45 cm/s, phasicity: Biphasic. Popliteal artery: 46 cm/s, phasicity: Biphasic. Posterior tibial artery: 24 cm/s, phasicity: Monophasic. Peroneal artery: No color Doppler flow. Anterior tibial artery: 50 cm/s, phasicity: Biphasic. Dorsalis pedis artery: 92 cm/s, phasicity: [Biphasic. BRACHIAL PRESSURES: Right: 122 Left: 123 ANKLE PRESSURES: Right: PT 150, DP 148 Left: PT 148, DP 142 ANKLE-BRACHIAL INDEX: Right: 1.22 Left: 1.20 ANKLE PVR WAVEFORMS: Right: Normal Left: Normal US/US arterial duplex BI w/ INO IMPRESSION: Right leg: Mild to moderate inflow disease throughout the interrogated vessels. 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 Left leg: Mild to moderate inflow disease involving mostly from the popliteal to the dorsalis pedis arteries. 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 INO Reference: - >1.4 = calcified vessels - 0.9 - 1.4 = normal - no significant arterial disease - 0.7 - 0.89 = mild peripheral arterial disease - 0.51 - 0.69 = moderate peripheral arterial disease - 0.50 = severe peripheral arterial disease - < .30 = critical arterial disease Electronically signed by: Shaheen Chapman MD 11/05/2024 03:48 PM EDT Dictated By: Shaheen Caldera MD Signed By: <Electronically signed by Shaheen Heard MD in OV> 11/05/24 1548 DD/ 1430 TD/TT: 11/05/24 1505 Eye Care Professional: [address] [address] Ultrasound Report Signed Patient: Nakul Aguilera MR#: [id number] : 1940 Acct:[id number] Age/Sex: 84 / M ADM Date: 11/05/24 Loc: HO.US Attending Dr: Kenton Casas MD Ordering Physician: Kenton Casas MD Date of Service: 11/05/24 Procedure(s): US arterial duplex BI w/ INO Accession Number(s): [id number] cc: Skinny Morales MD; Kenton Casas MD EXAMINATION: Noninvasive assessme nt of the bilateral lower extremities with ARTERIAL DUPLEX, ANKLE BRACHI AL INDICES (ABIs), and PULSE VOLUME RECORDINGS (PVRs). CLINICAL INFORMATION: Peripheral vascular disease, unspecified. TECHNIQUE: Duplex Doppler techniques with waveform analysis and measurement of velocities in the bilateral common femoral, profunda femoris, superficial femoral, popliteal and tibial arteries were performed. Additionally, ankle pulse volume recordings, ankle pressure measurements and ank le brachial indices were obtained of the lower extremity arterial system bilaterally. The study was performed only at rest. COMPARISON: None FINDINGS: DIRECT DUPLEX DOPPLE R FINDINGS: RIGHT LEG: Common femoral arter y: 86 cm/s, phasicity: Triphasic. Profunda femoris art kelsey: 47 cm/s, phasicity: Triphasic. Superficial femoral artery (proximal): 109 cm/s, phasicity: Biphasic. Superficial femoral artery (mid): 71 cm/s, phasicity: Biphasic. Superficial femoral artery (distal): 54 cm/s, phasicity: Biphasic. Popliteal artery: 80 cm/s, phasicity: Biphasic. Posterior tibial art kelsey: 44 cm/s, phasicity: [Biphasic. Peroneal artery: No color Doppler flow. Anterior tibial germaine ry: 37 cm/s, phasicity: Biphasic. Dorsalis pedis arter y: 117 cm/s, phasicity:Reversal biphasic. LEFT LEG: Common femoral arter y: 103 cm/s, phasicity: Biphasic. Profunda femoris art kelsey: 52 cm/s, phasicity: Biphasic. Superficial femoral artery (proximal): 74 cm/s, phasicity: Biphasic. Superficial femoral artery (mid): 65 cm/s, phasicity: Biphasic. Superficial femoral artery (distal): 45 cm/s, phasicity: Biphasic. Popliteal artery: 46 cm/s, phasicity: Biphasic. Posterior tibial art kelsey: 24 cm/s, phasicity: Monophasic. Peroneal artery: No color Doppler flow. Anterior tibial germaine ry: 50 cm/s, phasicity: Biphasic. Dorsalis pedis arter y: 92 cm/s, phasicity: [Biphasic. BRACHIAL PRESSURES: Right: 122 Left: 123 ANKLE PRESSURES: Right: PT 150, DP 148 Left: PT 148, DP 142 ANKLE-BRACHIAL INDEX: Right: 1.22 Left: 1.20 ANKLE PVR WAVEFORMS: Right: Normal Left: Normal U S/US arterial duplex BI w/ INO IMPRESSION: Right leg: Mild to moderate inflow disease throughout the interrogated vessels. 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 Left leg: Mild to moderate inflow disease involving mostly from the popliteal to the dorsalis pedis arteries. 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 INO Reference: - >1.4 = calcified vessels - 0.9 - 1.4 = normal - no significant arterial disease - 0.7 - 0.89 = mild peripheral arterial disease - 0.51 - 0.69 = mode rate peripheral arterial disease - 0.50 = severe peripheral arterial disease - < .30 = critical arterial disease Electronically ashley d by: Shaheen Chapman MD 11/05/2024 03:48 PM EDT RP Dictated By: Shaheen Oscar MD Signed By: <Electronically signed by Shaheen Heard MD in OV> 11/05/24 1548 DD/ 1430 TD/TT: 11/05/24 1505 Eye Care Professional: Reason For Referral Reason balance problems Diagnosis [...] Intramuscular 12/26/2017 Administered pt had vaccine at [facility] on [facility]. 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) Active confirmed Problem 244628111 Peripheral vascu lar disease (I73.9) Active confirmed Problem 74092893 Unsteady gait (R26.81) Active confirme d Problem 170663505 Pure hypercholesterolemia (E78.00) Active confirmed Problem 291194532985067 Atherosclerosis of both carotid arteries (I65.23) Active confirmed Problem Problem with balance (153729322) Balance problems (R26.89) Active confirmed Vital Signs [...] Date Provider Diagnosis Skinny Morales MD [address] [place] [id number] 01/16/2024 Skinny Morales Pure hypercholestero lemia E78.00 and Encounter for immunization Z23 Skinny Morales MD [address] [place] [address] [address] [id number] 07/13/2024 Skinny Morales Pure hypercholestero lemia E78.00 Skinny Morales MD [address] [place] [address] [address] [place] [id number] 01/23/2024 Skinny Morales Pure hypercholestero lemia E78.00 Skinny Morales MD [address] [place] [address] [address] [id number] 07/20/2024 Skinny Morales Anxiety F41.9 ; Unst jennifer gait R26.81 ; Foot drop, left M21.372 and Pure hypercholesterolemia E78.00 Skinny Morales MD [address] [place] [address] Drive [address] [place] [id number] 09/29/2024 Skinny Morales Balance problems R26 .89 ; Peripheral vascular disease I73.9 and Adrenal adenoma, unspecified laterality D35.00 Skinny Morales MD [address] [place] [id number] 09/22/2024 Skinny Morales Assessments Encounter Date Diagnosis [...] - R26.89) will refer to neurology at [facility] 09/29/2024 Peripheral vascular disease (ICD-10 - I73.9) [...] Details Provider Name:Skinny jansen, 11/30/2024 02:00:00 PM, [address] [place] [address], [address], [phone], Provider Name:Skinny jansen, 01/14/2025 07:30:00 AM, [address] [place] [address], [address], [phone], Provider Name:Skinny jansen, 01/21/2025 01:45:00 PM, [address] [place] [address], [address], [phone], Provider Name:Skinny jansen, 07/16/2025 07:30:00 AM, [address] [place] [address], [phone], Provider Name:Skinny jansen, 07/23/2025 01:00:00 PM, [address] [place] [address], [address], [phone], Insurance Providers Payer Name Payer Address Payer Phone Subscriber Number Group Number Insured Name Patient Relationship to Insured Coverage Start Date Coverage End Date MEDICARE [facility] [place] [address] [id number] Self - patient is the insured MEDEX BC OF [facility] [id number] [place] [id number] Self - patient is the insured Medical (General) History Medical History History ICD Code disc disease colonoscopy due in 2011; col onoscopy 07/28/2013 hyperplastic polyp no further colonoscopy hematuria eval 2016 Inguinal adenopathy 785.6
--- OUTSIDE RECORDS SUMMARY | 2024-11-10 09:07 | XMS_ITS | Clinical Summary ---
Author Organization [facility] Address [address] [place] [address] Care Team Providers Care Medical Authorization Specialist Name Role Phone Skinny Morales MD Primary Care Provider [phone] Allergies No known active allergies Medications Medication [...] 1-dose 75+ series) 2016 Influenza Vaccine (#1) 2025 Hepatitis B Vaccines Aged Out No long er eligible based on patient's age to complete this topic RSV Ped < 20 months Aged Out No longe r eligible based on patient's age to complete this topic Care Teams Medical Authorization Specialist Relationship Specialty Start Date End Date Skinny Morales MD [address] [place] [address] PCP - General Internal Medicine 02/14/18
== END 2024-11-10 09:34 | disposition home or self-care (01) ==
LOC: HO.HVS 08:49
PROVIDERS: PCP Internal Medicine; Visit Provider Surgery Vascular Surgery
DX: I73.9 Peripheral vascular disease, unspecified (principal); I83.11 Varicose veins of right lower extremity with inflammation; I73.00 Raynaud's syndrome without gangrene; I89.0 Lymphedema, not elsewhere classified; M54.50 Low back pain, unspecified; G89.29 Other chronic pain
CPT/HCPCS: 99214; G2211

== ENCOUNTER → 2024-11-10 08:48 | Outpatient (BNVA) | payer MEDICARE, SELFPAY | PROVIDERS: PCP Internal Medicine; Visit Provider Surgery Vascular Surgery | DX: I83.11 Varicose veins of right lower extremity with inflammation (principal); I73.9 Peripheral vascular disease, unspecified; I73.00 Raynaud's syndrome without gangrene; I89.0 Lymphedema, not elsewhere classified; M54.50 Low back pain, unspecified; G89.29 Other chronic pain | CPT/HCPCS: 99212 ==

== ENCOUNTER 2024-11-11 12:31 | Outpatient (REF) | payer MEDICARE, SELFPAY ==
--- NOTE | 2024-11-11 | EMG_ITS ---
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 Normal EMG of the left C5- T1 innervated muscles. 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 EMG of the left L4-S1 innervated muscles is consistent with a severe distal chronic neuropathic changes. Please see detailed neurophysiological report MTDD
--- OUTSIDE RECORDS SUMMARY | 2024-11-11 13:23 | XMS_ITS | Patient Health Record ---
Author Organization [facility] Address [address] [place] [address] Care Team Providers Care Makeup Sales Consultant Name Role Phone Skinny Morales MD Primary Care Provider Charles Zamudio [phone] Reason For Referral No Information Medications Medication SIG (Take, Route, Frequency, Duration) Notes Start Date End Date Status Colyte with Flavor Packs 227.1 GM as directed Orally as directed for 1 day(s) 06/02/2013 Active Aspir-81 Active Problems Problem Type SNOMED Code ICD Code Onset Dates Problem Status W/U Status Risk Notes Problem Screening for colon cancer (268331435) Screening for colon cancer (V76.51) Active confirmed Problem Long-term current use of aspirin (4775413737159 03) Aspirin long-term use (V58.66) Active confirmed Plan Of Treatment Future Test Test Name Order Date COLONOSCOPY 06/02/2013 Insurance Providers Payer Name Payer Address Payer Phone Subscriber Number Group Number Insured Name Patient Relationship to Insured Coverage Start Date Coverage End Date MEDICARE OF [place] [address] [place] [address] [id number] Self - patient is the insured MEDEX ATTN CLAIMS [address] [place] [address] [id number] [address] Self - patient is the insured Medical (General) History Medical History History ICD Code Denies DC,DM,CVA,Lung disease,renal dise ase Colonoscopy in 08/2001-neg. 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
--- OUTSIDE RECORDS SUMMARY | 2024-11-11 13:24 | XMS_ITS | Clinical Summary ---
Author Organization [facility] Address [address] [place] [address] Care Team Providers Care Spring Fitter Name Role Phone Skinny Morales MD Primary Care Provider [phone] Allergies No known active allergies Medications Medication [...] age to complete this topic Care Teams Spring Fitter Relationship Specialty Start Date End Date Skinny Morales MD [address] [place] [address] PCP - General Internal Medicine 02/14/18
--- OUTSIDE RECORDS SUMMARY | 2024-11-11 13:24 | XMS_ITS | Patient Health Record ---
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 Role Phone Skinny Morales Primary Care Provider Allergies No Known Allergies Results Component Value Reference Range Notes Liver Panel Reviewed date:01/17/2024 08:37:55 AM Interpretation: Performing Lab:[facility], [address] [place] [phone] Notes/Report: Bilirubin Total 0.6 0.0-1.0 mg/dL Bilirubin Direct 0.2 0.0-0.5 mg/dL Aspartate Amino Transferase 22 5-37 U/L Alanine Aminotransferase 15 0-40 U/L Total Protein 7.0 6.5-8.0 g/dL Albumin Level 4.4 3.5-5.0 g/dL Alkaline Phosphatase 62 39-117 U/L Lipid Panel with Reflex Reviewed date:01/17/2024 08:39:18 AM Interpretation: Performing Lab:[facility], [address] [place] [phone] Notes/Report: Triglycerides 61 <150 mg/dL Desirable Triglyceride: [...] ff Reviewed date:07/13/2024 06:10:21 PM Interpretation: Performing Lab:[facility], [address] [place] [phone] Notes/Report: White Blood Count 8.2 4.8-10.8 X10*3/uL [...] NRBC Abs Auto 0.000 0.0-0.012 X10*3/uL Comprehensive [place]. Panel Fa st Reviewed date:07/13/2024 06:09:35 PM Interpretation: Performing Lab:[address] [phone] Notes/Report: Sodium 142 135-145 mmol/L Potassium 4.1 [...] Panel Reviewed date:07/13/2024 12:40:52 PM Interpretation: Performing Lab:[address] [phone] Notes/Report: Triglycerides 69 <150 mg/dL Desirable Triglyceride: [...] (Free>4and<10) Reviewed date:07/13/2024 05:58:54 PM Interpretation: Performing Lab:[address] [address] Notes/Report: PSA,Total (Free>4and<10) 0.52 0.00-4.00 ng/mL A [...] t Reviewed date:07/13/2024 06:09:58 PM Interpretation: Performing Lab:[facility], [address] [place] [phone] Notes/Report: Urine, Clean Catch Color Urine Yellow Appearance Urine Clear PH 5.5 5.0-9.0 Glucose Urine UA Negative Negative mg/dL Urine Blood Negative Negative Specific [place] - Urine 1.025 1.005-1.025 Urine Protein Negative Neg-Trace mg/dL Urine Ketones Negative Negative mg/dL Nitrite Urine Negative Negative Leukocyte Esterase Urine Negative Negative RBC Urine 0-2 0-2 /HPF WBC Urine 0-5 0-5 /HPF Squamous Epithelial Cell Urine 0-2 0-2 /HPF Bacteria Urine None Seen None Seen Hyaline Casts Urine 0-2 0-2 /LPF Hold Gold Reviewed date:01/16/2024 06:47:29 PM Interpretation: Performing Lab:[facility], [address] [place] [phone] Notes/Report: Hold Gold See Note Specimen held untested for 24 hours; Call to request Chemistry testing. CT chest w con Reviewed date:09/22/2024 12:30:47 PM Interpretation: Performing Lab: Notes/Report: [address] [address] [address] Scan Report Signed Patient: Nakul Aguilera MR#: [id number] : 1940 Acct:[id number] Age/Sex: 84 / M ADM Date: 09/21/24 Loc: HO.ED Attending Dr: Ordering Physician: Vivian Carrillo DO Date of Service: 09/21/24 Procedure(s): CT chest w IV con Accession Number(s): [id number] cc: Skinny Morales MD; Vivian Carrillo DO Report Number: [id number]: Total DLP = 566.08 mGy-cm CLINICAL HISTORY: [...] in OV> 09/21/242005 DD/ 04 TD/TT: 09/21/242004 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: [address] [address] [address] Scan Report Signed Patient: Nakul Aguilera MR#: [id number] : 1940 Acct:[id number] Age/Sex: 84 / M ADM Date: 09/21/24 Loc: HO.ED Attending Dr: Ordering Physician: Vivian Carrillo DO Date of Service: 09/21/24 Procedure(s): CT m[address] w IV con Accession Number(s): [id number] cc: Skinny Morales MD; Vivian Carrillo DO Report Number: [id number]: Total DLP = 566.08 mGy-cm CLINICAL HISTORY: [...] in OV> 09/21/242005 DD/ 04 TD/TT: 09/21/242004 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: CT abdomen pelvis w con Reviewed date:10/02/2024 07:26:55 AM Interpretation:09-29-2024 Performing Lab: Notes/Report: [address] [place] [address] CT Scan Report Signed Patient: Nakul Aguilera MR#: [id number] : 1940 Acct:[id number] Age/Sex: 84 / M ADM Date: 09/21/24 Loc: HO.ED Attending Dr: Ordering Physician: Vivian Carrillo DO Date of Service: 09/21/24 Procedure(s): CT abdomen pelvis w IV con Accession Number(s): [id number] cc: Skinny Morales MD; Vivian Carrillo DO Report Number: [id number]: Total DLP = 1162.88 mGy-cm CLINICAL HISTORY: [...] in OV> 09/21/242001 DD/ 00 TD/TT: 09/21/242000 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: [place] [address] CT Scan Report Signed Patient: Nakul Aguilera MR#: [id number] : 1940 Acct:[id number] Age/Sex: 84 / M ADM Date: 09/21/24 Loc: HO.ED Attending Dr: Ordering Physician: Vivian Carrillo DO Date of Service: 09/21/24 Procedure(s): CT abd omen pelvis w IV con Accession Number(s): [id number] cc: Skinny oMrales MD; Vivian Carrillo DO Report Number: [id number]: Total DLP = 1162.88 mGy-cm CLINICAL HISTORY: [...] in OV> 09/21/242001 DD/ 00 TD/TT: 09/21/242000 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: CT cervical spine wo con Reviewed date:09/29/2024 03:36:46 PM Interpretation: Performing Lab: Notes/Report: [place] [address] [address] Scan Report Signed Patient: Nakul Aguilera MR#: [id number] : 1940 Acct:[id number] Age/Sex: 84 / M ADM Date: 09/21/24 Loc: .ED Attending Dr: Ordering Physician: Vivian Carrillo DO Date of Service: 09/21/24 Procedure(s): CT cervical spine wo IV con Accession Number(s): [id number] cc: Skinny Morales MD; Vivian Carrillo DO Report Number: [id number]: Total DLP = 499.77 mGy-cm CLINICAL HISTORY: [...] in OV> 09/21/241957 DD/ 56 TD/TT: 09/21/241956 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: [address] [address] [address] Scan Report Signed Patient: Nakul Aguilera MR#: [id number] : 1940 Acct:[id number] Age/Sex: 84 / M ADM Date: 09/21/24 Loc: HO.ED Attending Dr: Ordering Physician: Vivian Carrillo DO Date of Service: 09/21/24 Procedure(s): CT cervical spine wo IV con Accession Number(s): [id number] cc: Skinny Morales MD; Vivian Carrillo DO Report Number: [id number]: Total DLP = 499.77 mGy-cm CLINICAL HISTORY: [...] in OV> 09/21/241957 DD/ 56 TD/TT: 09/21/241956 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: CT head/brain wo con Reviewed date:09/22/2024 12:33:36 PM Interpretation: Performing Lab: Notes/Report: [address] [address] [address] Scan Report Signed Patient: Nakul Aguilera MR#: [id number] : 1940 Acct:[id number] Age/Sex: 84 / M ADM Date: 09/21/24 Loc: HO.ED Attending Dr: Ordering Physician: Vivian Carrillo DO Date of Service: 09/21/24 Procedure(s): CT head/brain wo IV con Accession Number(s): [id number] cc: Skinny Morales MD; Vivian Carrillo DO Report Number: [id number]: Total DLP = 818.68 mGy-cm CLINICAL HISTORY: [...] in OV> 09/21/241956 DD/ 55 TD/TT: 09/21/241955 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: [address] [address] [address] Scan Report Signed Patient: Nakul Aguilera MR#: [id number] : 1940 Acct:[id number] Age/Sex: 84 / M ADM Date: 09/21/24 Loc: HO.ED Attending Dr: Ordering Physician: Vivian Carrillo DO Date of Service: 09/21/24 Procedure(s): CT head/brain wo IV con Accession Number(s): [id number] cc: Skinny Morales MD; Vivian Carrillo DO Report Number: [id number]: Total DLP = 818.68 mGy-cm CLINICAL HISTORY: [...] in OV> 09/21/241956 DD/ 55 TD/TT: 09/21/241955 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: US venous duplex LE BI Reviewed date:11/03/2024 12:10:47 PM Interpretation: Performing Lab: Notes/Report: [address] [address] Ultrasound Report Signed Patient: Nakul Aguilera MR#: [id number] : 1940 Acct:[id number] Age/Sex: 84 / M ADM Date: 11/03/24 Loc: HO.US Attending Dr: Kenton Casas MD Ordering Physician: Kenton Casas MD Date of Service: 11/03/24 Procedure(s): US venous duplex LE BI Accession Number(s): [id number] cc: Skinny Morales MD; Kenton Casas MD [...] 11/03/24 1102 DD/ 1016 TD/TT: 11/03/24 1045 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: [place] [address] Ultrasound Report Signed Patient: Nakul Aguilera MR#: [id number] : 1940 Acct:[id number] Age/Sex: 84 / M ADM Date: 11/03/24 Loc: .US Attending Dr: Kenton Casas MD Ordering Physician: Kenton Casas MD Date of Service: 11/03/24 Procedure(s): US cuate ous duplex LE BI Accession Number(s): [id number] cc: Skinny Morales MD; Kenton Casas MD [...] 11/03/24 1102 DD/ 1016 TD/TT: 11/03/24 1045 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: US arterial duplex BI w/ INO Reviewed date:11/05/2024 08:33:42 PM Interpretation: Performing Lab: Notes/Report: [address] [address] Ultrasound Report Signed Patient: Nakul Aguilera MR#: [id number] : 1940 Acct:[id number] Age/Sex: 84 / M ADM Date: 11/05/24 Loc: .US Attending Dr: Kenton Casas MD Ordering Physician: Kenton Casas MD Date of Service: 11/05/24 Procedure(s): US arterial duplex BI w/ INO Accession Number(s): [id number] cc: Skinny Morales MD; Kenton Casas MD [...] 11/05/24 1548 DD/ 1430 TD/TT: 11/05/24 1505 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: [address] [address] Ultrasound Report Signed Patient: Nakul Aguilera MR#: [id number] : 1940 Acct:[id number] Age/Sex: 84 / M ADM Date: 11/05/24 Loc: HO.US Attending Dr: Kenton Casas MD Ordering Physician: Kenton Casas MD Date of Service: 11/05/24 Procedure(s): US arterial duplex BI w/ INO Accession Number(s): [id number] cc: Skinny Morales MD; Kenton Casas MD [...] 11/05/24 1548 DD/ 1430 TD/TT: 11/05/24 1505 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) Active confirmed Problem 711963140 Peripheral vascu lar disease (I73.9) Active confirmed Problem 78766331 Unsteady gait (R26.81) Active confirme d Problem 757169729 Pure hypercholesterolemia (E78.00) Active confirmed Problem 725528090569378 Atherosclerosis of both carotid arteries (I65.23) Active confirmed Problem Problem with balance (775378887) Balance problems (R26.89) Active confirmed Vital Signs [...] Date Provider Diagnosis Skinny Morales MD [address] [place] [phone] 01/16/2024 Skinny Morales Pure hypercholestero lemia E78.00 and Encounter for immunization Z23 Skinny Morales MD [address] [place] [phone] 07/13/2024 Skinny Morales Pure hypercholestero lemia E78.00 Skinny Morales MD [address] [place] [address] Drive [address] [place] [phone] 01/23/2024 Skinny Morales Pure hypercholestero lemia E78.00 Skinny Morales MD [address] [place] [address] [phone] 07/20/2024 Skinny Morales Anxiety F41.9 ; Unst jennifer gait R26.81 ; Foot drop, left M21.372 and Pure hypercholesterolemia E78.00 Skinny Morales MD [address] [place] [address] [address] [phone] 09/29/2024 Skinny Morales Balance problems R26 .89 ; Peripheral vascular disease I73.9 and Adrenal adenoma, unspecified laterality D35.00 Skinny Morales MD [address] [place] [phone] 09/22/2024 Skinny Morales Assessments Encounter Date Diagnosis [...] - R26.89) will refer to neurology at [facility] 09/29/2024 Peripheral [...] Details Provider Name:Skinny jansen, 11/30/2024 02:00:00 PM, [address] [place] [address], [address], [phone], Provider Name:Skinny jansen, 01/14/2025 07:30:00 AM, [address] [place] [address], [address], [phone], Provider Name:Skinny jansen, 01/21/2025 01:45:00 PM, [address] [place] [address], [address], [phone], Provider Name:Skinny jansen, 07/16/2025 07:30:00 AM, [address] [place] [address], [address], [phone], Provider Name:Skinny jansen, 07/23/2025 01:00:00 PM, [address] [place] [address], [address], [phone], Insurance Providers Payer Name Payer Address Payer Phone Subscriber Number Group Number Insured Name Patient Relationship to Insured Coverage Start Date Coverage End Date [employer] [address] [place] [address] [id number] Self - patient is the insured MED[employer] BC OF [facility] [address] [place] [id number] Self - patient is the insured Medical (General) History Medical History History ICD Code disc disease colonoscopy due in 2011; col onoscopy 07/28/2013 hyperplastic polyp no further colonoscopy hematuria eval 2016 Inguinal adenopathy 785.6
== END 2024-11-11 12:32 | disposition home or self-care (01) ==
LOC: HO.NEURO 12:31
PROVIDERS: PCP Internal Medicine; Visit Provider Psychiatry & Neurology Neurology
DX: G56.03 Carpal tunnel syndrome, bilateral upper limbs (principal); G62.9 Polyneuropathy, unspecified
CPT/HCPCS: 95885; 95913

== ENCOUNTER → 2024-11-11 12:38 | Outpatient (BNV) | payer MEDICARE, SELFPAY | PROVIDERS: PCP Internal Medicine; Visit Provider Psychiatry & Neurology Neurology | DX: G56.03 Carpal tunnel syndrome, bilateral upper limbs (principal); G62.9 Polyneuropathy, unspecified | CPT/HCPCS: 95885; 95886; 95913 ==

== ENCOUNTER 2024-12-16 10:54 | Outpatient (AMB) | payer MEDICARE, SELFPAY ==
--- NOTE | 2024-12-16 11:11 | A.OFFVIS_ITS ---
Intake Visit Reasons: 4 Weeks/ PN. Ft drop, CYS Allergies No Known Allergies Allergy (Verified 11/10/24 09:03) HPI Comments Details: This is a 84-year-old generally healthy man with a history of hyperlipidemia and depression who had the lumbar spine decompression by about 15 years ago.? At that time he apparently had a right foot drop, which improved. For a while, he had an AFO brace.? In the last one to 2 years, his walking has deteriorated.? He has more of a floppy foot on the right and tends to trip easily and falls frequently.? He has no complaints in his upper extremities and no back pain. [facility] Medical History (Updated 12/16/24 @ 11:15 by Lala Boogie MD) Peripheral neuropathy Carpal tunnel syndrome Mild intermittent asthma Dyspnea on exertion Social History Patient Tobacco Use Status: Former Tobacco user Review of Systems Const Details: Sleep:? Difficulty getting to sleepdenies.? Difficulty maintaining sleepdenies?.? Urge to move legsdenies.? Teeth grindingdenies.? Shouting or Kicking during sleep denies.? Abnormal behavior during sleepdenies.? Excessive sleepdenies.? Snoring denies.? Daytime sleepinessdenies. ???General/Constitutional:? Change in appetitedenies.? Chillsdenies.? Fatiguedenies.? Feverdenies.? Weight gaindenies.? Weight lossdenies. ???Ophthalmologic:? Blurred visiondenies.? Diminished visual acuitydenies. ???ENT:? Stuffinessdenies.? Decreased hearingdenies.? Dry mouthdenies.? Ear paindenies.? Nosebleeddenies.? Ringing in the earsdenies.? Sinus paindenies.? Sore throat denies.? Swollen glandsdenies. ???Endocrine:? Cold intolerancedenies.? Excessive thirstdenies.? Frequent urinationdenies.? Heat intolerancedenies. ???Respiratory:? Shortness of breathdenies.? Chest paindenies.? Coughdenies. ???Breast:? Breast lumpdenies.? Nipple dischargedenies. ???Cardiovascular:? Chest pain at restdenies.? Chest pain with exertiondenies.? Claudicationdenies .? Dizzinessdenies.? Fluid accumulation in the legsadmits.? Irregular heartbeat denies.? Palpitationsdenies. ???Gastrointestinal:? Abdominal paindenies.? Constipationdenies.? Diarrheadenies.? Difficulty swallowingdenies.? Heartburndenies.? Nauseadenies.? Rectal bleedingdenies. ???Hematology:? Easy bruisingdenies.? Prolonged bleedingdenies. ???Genitourinary:? Frequent urinationdenies.? Urgencydenies.? Incontinencedenies.? Erectile Dysfunctiondenies. ???Musculoskeletal:? Neck paindenies.? Back paindenies.? Muscle achesdenies.? Painful jointsdenies.? Sciaticadenies.? Weaknessright foot. ???Podiatric:? Difficulty walkingdenies.? Foot numbnessdenies. ???Neurologic:? Difficulty swallowingdenies.? Balance difficultyadmits.? Coordinationnormal.? Difficulty speakingdenies.? Dizzinessdenies.? Faintingdenies.? Gait abnormality admits.? Headachedenies.? Loss of strengthdenies.? Loss of use of extremity denies.? Low back paindenies.? Memory lossdenies.? Seizuresdenies.? Ticsdenies.? Tingling/Numbnessbilateral lower extremities.? Transient loss of visiondenies.? Tremordenies. ???Psychiatric:? Anxietyadmits.? Auditory/visual hallucinationsdenies.? Delusionsdenies.? Depressed mooddenies.? Stressorsdenies.? Substance abusedenies.? Suicidal thoughtsdenies. Physical Exam Neuro Other: Neurological: Abnormal neurological findings:??areflexia in both lower extremities at the ankles with 1+ right knee jerk.? Loss of pinprick sensation below the ankles and loss of vibration below the knees.? Right foot drop with weakness of the EDB, EHL and everters of the foot.? Partial foot drop on the left, particularly w eakness in the evertors of the ankle..?Mental Status:??alert and oriented X 3,?Normal attention, orientation, memory and affect.?Cranial Nerves:??Pupils are equal, round and reactive to light. Fundoscopy shows normal disc bilaterally. External occular muscles are intact. Visual daily are full, no ptosis. Face is symmetrical, no facial weakness or droop. Facial sensations are normal. Tongue protrudes in midline. Palate elevates symmetrically. Shoulder shrugging is normal..?Motor Examination:??bilateral leg and foot weakness as described above.? Atrophy of the left APB with appropriate degree of weakness.? Otherwise normal muscle tone, bulk and strength,?No atrophy or fasciculations,?No drift of the extended upper extremities,?Deep tendon reflexes are 0-1+?,?Plantars are flexor?.?Straight Leg Raising:??90 degrees.?Sensory Exam:??as above.?Coordination:??no ataxia,?no titubation,?lnkzql-zm-mjiw, rlhr-tmhv-kihz test and rapid alternating movements were normal.?Gait Exam:??walks with a bro ad-based gait with slapping right foot and also partial foot drop on the left.?Cerebellar Signs:??Vobjrx-tv-mvud and dpov-fk-zkgb is normal,?no dysdiadochokinesia?.?Extrapyramidal System:??No tremor, rigidity with normal facial expressions,?No bradykinesia, no bradyphrenia. Normal arm swing and posture. No propulsion or retropulsion.?Speech:??Normal,?no dysphasia or dysarthria..? Mini Mental Status Exam: Level of Consciousness:??Alert.?Orientation:??Knows correct year, month, date, day and season,?Knows correct city, county and state. Knows correct location and floor.?Registration:??Able to register 3 objects.?Attention:??Serial 7's performed accurately.?Recall:??Able to recall 3 out of 3 objects.?Language:??Normal spontaneous speech, fluency, repetition,naming, comprehension, reading and writing.?Total Score:??30/30.? General Examination: GENERAL APPEARANCE:??normal,?in no acute distress.?HEAD:??normocephalic,?atraumatic.?EYES:??sclera non- icteric,?conjunctiva clear.?EARS:??auditory canal clear,?tympanic membrane intact, clear.?NOSE:??no lesions.?ORAL CAVITY:??gums normal,?mucosa moist,?no lesions.?THROAT:??clear.?NECK/THYROID:??no cervical lymphadenopathy,?thyroid normal,?neck supple, full range of motion,?no carotid bruit.?SKIN:??no rashes,?no significant birthmarks.?HEART:??S1, S2 normal,?no murmurs.?LUNGS:?? clear anteriorly and posteriorly.?CHEST:??no gross rib deformity,?clear to auscultation.?BACK:??normal exam of spine.?EXTREMITIES:??no edema.?PERIPHERAL PULSES:??normal.?PSYCH:??alert, oriented,?cognitive function intact,?cooperative with exam.? Results Reviewed Results Reviewed: 11/11/24 NCV/EMG : Nerve conduction study of the upper extremities: Axonal, sensory greater than motor, peripheral neuropathy in the upper extremities with superimposed carpal tunnel syndrome bilaterally, left worse than right. Normal EMG of the left C5-T1 innervated muscles. 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 EMG of the left L4-S1 innervated muscles is consistent with a severe distal chronic neuropathic changes. Assessment & Plan Assessment & Plan (1) Peripheral neuropathy: Code(s): G62.9 - Polyneuropathy, unspecified Category: Medical Plan Use AFO braces, Cane for balance and be careful about tripping. Coding Level of Care Code Est Pt Level 4 (33846) Diagnoses Peripheral neuropathy G62.9
--- OUTSIDE RECORDS SUMMARY | 2024-12-16 11:47 | XMS_ITS | Patient Health Record ---
Author Organization [facility] Address [address] [place] [address] Care Team Providers Care Visitor Services Specialist Name Role Phone Skinny Morales MD Primary Care Provider Charles Zamudio [phone] Reason For Referral No Information Medications Medication SIG (Take, Route, Frequency, Duration) Notes Start Date End Date Status Colyte with Flavor Packs 227.1 GM as directed Orally as directed for 1 day(s) 06/02/2013 Active Aspir-81 Active Problems Problem Type SNOMED Code ICD Code Onset Dates Problem Status W/U Status Risk Notes Problem Screening for colon cancer (313136215) Screening for colon cancer (V76.51) Active confirmed Problem Long-term current use of aspirin (1562174230416 03) Aspirin long-term use (V58.66) Active confirmed Plan Of Treatment Future Test Test Name Order Date COLONOSCOPY 06/02/2013 Insurance Providers Payer Name Payer Address Payer Phone Subscriber Number Group Number Insured Name Patient Relationship to Insured Coverage Start Date Coverage End Date MEDICARE OF [place] [address] [place] [id number] Self - patient is the insured MED[employer] ATT[employer] CLAIMS [address] [place] [address] [id number] [address] Self - patient is the insured Medical (General) History Medical History History ICD Code Denies MS,DM,CVA,Lung disease,renal dise ase Colonoscopy in 08/2001-neg. 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
--- OUTSIDE RECORDS SUMMARY | 2024-12-16 11:48 | XMS_ITS | Clinical Summary ---
Author Organization [facility] Address [address] [place] [address] Care Team Providers Care Women'S Lacrosse Coach Name Role Phone Skinny Morales MD Primary Care Provider [phone] Allergies No known active allergies Medications Medication [...] age to complete this topic Care Teams Women'S Lacrosse Coach Relationship Specialty Start Date End Date Skinny Morales MD [address] [place] [address] PCP - General Internal Medicine 02/14/18
--- OUTSIDE RECORDS SUMMARY | 2024-12-16 11:48 | XMS_ITS | Patient Health Record ---
Author Organization Skinny Morales MD Address [address] [place], [place] [id number] Care Team Providers Care Slag Motor Operator Name Role Phone Skinny Morales Primary Care Provider Allergies No Known Allergies Results Component Value Reference Range Notes Liver Panel Reviewed date:01/17/2024 08:37:55 AM Interpretation: Performing Lab:[facility], [address] [place] [phone] Notes/Report: Bilirubin Total 0.6 0.0-1.0 mg/dL Bilirubin Direct 0.2 0.0-0.5 mg/dL Aspartate Amino Transferase 22 5-37 U/L Alanine Aminotransferase 15 0-40 U/L Total Protein 7.0 6.5-8.0 g/dL Albumin Level 4.4 3.5-5.0 g/dL Alkaline Phosphatase 62 39-117 U/L Lipid Panel with Reflex Reviewed date:01/17/2024 08:39:18 AM Interpretation: Performing Lab:[facility], [address] [place] [phone] Notes/Report: Triglycerides 61 <150 mg/dL Desirable Triglyceride: [...] ff Reviewed date:07/13/2024 06:10:21 PM Interpretation: Performing Lab:[facility], [address] [place] [address] Notes/Report: White Blood Count 8.2 4.8-10.8 X10*3/uL [...] NRBC Abs Auto 0.000 0.0-0.012 X10*3/uL Comprehensive [place]. Panel Fa st Reviewed date:07/13/2024 06:09:35 PM Interpretation: Performing Lab:[address] [address] Notes/Report: Sodium 142 135-145 mmol/L Potassium 4.1 [...] Panel Reviewed date:07/13/2024 12:40:52 PM Interpretation: Performing Lab:[address] [address] Notes/Report: Triglycerides 69 <150 mg/dL Desirable Triglyceride: [...] (Free>4and<10) Reviewed date:07/13/2024 05:58:54 PM Interpretation: Performing Lab:[address] [address] Notes/Report: PSA,Total (Free>4and<10) 0.52 0.00-4.00 ng/mL A [...] t Reviewed date:07/13/2024 06:09:58 PM Interpretation: Performing Lab:[facility], [address] [place] [address] Notes/Report: Urine, Clean Catch Color Urine Yellow Appearance Urine Clear PH 5.5 5.0-9.0 Glucose Urine UA Negative Negative mg/dL Urine Blood Negative Negative Specific [place] - Urine 1.025 1.005-1.025 Urine Protein Negative Neg-Trace mg/dL Urine Ketones Negative Negative mg/dL Nitrite Urine Negative Negative Leukocyte Esterase Urine Negative Negative RBC Urine 0-2 0-2 /HPF WBC Urine 0-5 0-5 /HPF Squamous Epithelial Cell Urine 0-2 0-2 /HPF Bacteria Urine None Seen None Seen Hyaline Casts Urine 0-2 0-2 /LPF Hold Gold Reviewed date:01/16/2024 06:47:29 PM Interpretation: Performing Lab:[facility], [address] [place] [phone] Notes/Report: Hold Gold See Note Specimen held untested for 24 hours; Call to request Chemistry testing. CT chest w con Reviewed date:09/22/2024 12:30:47 PM Interpretation: Performing Lab: Notes/Report: [address] [address] [address] Scan Report Signed Patient: Nakul Aguilera MR#: [id number] : 1940 Acct:[id number] Age/Sex: 84 / M ADM Date: 09/21/24 Loc: HO.ED Attending Dr: Ordering Physician: Vivian Carrillo DO Date of Service: 09/21/24 Procedure(s): CT chest w IV con Accession Number(s): [id number] cc: Skinny Morales MD; Vivian Carrillo DO Report Number: [id number]: Total DLP = 566.08 mGy-cm CLINICAL HISTORY: [...] in OV> 09/21/242005 DD/ 04 TD/TT: 09/21/242004 Assistant To The Director: [address] [address] [address] Scan Report Signed Patient: Nakul Aguilera MR#: [id number] : 1940 Acct:[id number] Age/Sex: 84 / M ADM Date: 09/21/24 Loc: HO.ED Attending Dr: Ordering Physician: Vivian Carrillo DO Date of Service: 09/21/24 Procedure(s): CT [address] w IV con Accession Number(s): [id number] cc: Skinny Morales MD; Vivian Carrillo DO Report Number: [id number]: Total DLP = 566.08 mGy-cm CLINICAL HISTORY: [...] in OV> 09/21/242005 DD/ 04 TD/TT: 09/21/242004 Assistant To The Director: CT abdomen pelvis w con Reviewed date:10/02/2024 07:26:55 AM Interpretation:09-29-2024 Performing Lab: Notes/Report: [address] [place] [address] CT Scan Report Signed Patient: Nakul Aguilera MR#: [id number] : 1940 Acct:[id number] Age/Sex: 84 / M ADM Date: 09/21/24 Loc: HO.ED Attending Dr: Ordering Physician: Vivian Carrillo DO Date of Service: 09/21/24 Procedure(s): CT abdomen pelvis w IV con Accession Number(s): [id number] cc: Skinny Morales MD; Vivian Carrillo DO Report Number: [id number]: Total DLP = 1162.88 mGy-cm CLINICAL HISTORY: [...] in OV> 09/21/242001 DD/ 00 TD/TT: 09/21/242000 Assistant To The Director: [place] [address] [address] Scan Report Signed Patient: Nakul Aguilera MR#: [id number] : 1940 Acct:[id number] Age/Sex: 84 / M ADM Date: 09/21/24 Loc: HO.ED Attending Dr: Ordering Physician: Vivian Carrillo DO Date of Service: 09/21/24 Procedure(s): CT abd omen pelvis w IV con Accession Number(s): [id number] cc: Skinny Morales MD; Vivian Carrillo DO Report Number: [id number]: Total DLP = 1162.88 mGy-cm CLINICAL HISTORY: [...] in OV> 09/21/242001 DD/ 00 TD/TT: 09/21/242000 Assistant To The Director: CT cervical spine wo con Reviewed date:09/29/2024 03:36:46 PM Interpretation: Performing Lab: Notes/Report: [place] [address] [address] Scan Report Signed Patient: Nakul Aguilera MR#: [id number] : 1940 Acct:[id number] Age/Sex: 84 / M ADM Date: 09/21/24 Loc: .ED Attending Dr: Ordering Physician: Vivian Carrillo DO Date of Service: 09/21/24 Procedure(s): CT cervical spine wo IV con Accession Number(s): [id number] cc: Skinny Morales MD; Vivian Carrillo DO Report Number: [id number]: Total DLP = 499.77 mGy-cm CLINICAL HISTORY: [...] in OV> 09/21/241957 DD/ 56 TD/TT: 09/21/241956 Assistant To The Director: [address] [address] [address] Scan Report Signed Patient: Nakul Augilera MR#: [id number] : 1940 Acct:[id number] Age/Sex: 84 / M ADM Date: 09/21/24 Loc: HO.ED Attending Dr: Ordering Physician: Vivian Carrillo DO Date of Service: 09/21/24 Procedure(s): CT cervical spine wo IV con Accession Number(s): [id number] cc: Skinny Morales MD; Vivian Carrillo DO Report Number: [id number]: Total DLP = 499.77 mGy-cm CLINICAL HISTORY: [...] in OV> 09/21/241957 DD/ 56 TD/TT: 09/21/241956 Assistant To The Director: CT head/brain wo con Reviewed date:09/22/2024 12:33:36 PM Interpretation: Performing Lab: Notes/Report: [address] [address] [address] Scan Report Signed Patient: Nakul Aguilera MR#: [id number] : 1940 Acct:[id number] Age/Sex: 84 / M ADM Date: 09/21/24 Loc: HO.ED Attending Dr: Ordering Physician: Vivian Carrillo DO Date of Service: 09/21/24 Procedure(s): CT head/brain wo IV con Accession Number(s): [id number] cc: Skinny Morales MD; Vivian Carrillo DO Report Number: [id number]: Total DLP = 818.68 mGy-cm CLINICAL HISTORY: [...] in OV> 09/21/241956 DD/ 55 TD/TT: 09/21/241955 Assistant To The Director: [address] [address] [address] Scan Report Signed Patient: Nakul Aguilera MR#: [id number] : 1940 Acct:[id number] Age/Sex: 84 / M ADM Date: 09/21/24 Loc: HO.ED Attending Dr: Ordering Physician: Vivian Carrillo DO Date of Service: 09/21/24 Procedure(s): CT head/brain wo IV con Accession Number(s): [id number] cc: Skinny Morales MD; Vivian Carrillo DO Report Number: [id number]: Total DLP = 818.68 mGy-cm CLINICAL HISTORY: [...] in OV> 09/21/241956 DD/ 55 TD/TT: 09/21/241955 Assistant To The Director: US venous duplex LE BI Reviewed date:11/03/2024 12:10:47 PM Interpretation: Performing Lab: Notes/Report: [address] [address] Ultrasound Report Signed Patient: Nakul Aguilera MR#: [id number] : 1940 Acct:[id number] Age/Sex: 84 / M ADM Date: 11/03/24 Loc: HO.US Attending Dr: Kenton Casas MD Ordering Physician: Kenton Casas MD Date of Service: 11/03/24 Procedure(s): US venous duplex LE BI Accession Number(s): [id number] cc: Skinny Morales MD; Kenton Casas MD [...] 11/03/24 1102 DD/ 1016 TD/TT: 11/03/24 1045 Assistant To The Director: [place] [address] Ultrasound Report Signed Patient: Nakul Aguilera MR#: [id number] : 1940 Acct:[id number] Age/Sex: 84 / M ADM Date: 11/03/24 Loc: .US Attending Dr: Kenton Casas MD Ordering Physician: Kenton Casas MD Date of Service: 11/03/24 Procedure(s): US cuate ous duplex LE BI Accession Number(s): [id number] cc: Skinny Morales MD; Kenton Casas MD [...] 11/03/24 1102 DD/ 1016 TD/TT: 11/03/24 1045 Assistant To The Director: US arterial duplex BI w/ INO Reviewed date:11/05/2024 08:33:42 PM Interpretation: Performing Lab: Notes/Report: [address] [address] Ultrasound Report Signed Patient: Nakul Aguilera MR#: [id number] : 1940 Acct:[id number] Age/Sex: 84 / M ADM Date: 11/05/24 Loc: .US Attending Dr: Kenton Casas MD Ordering Physician: Kenton Casas MD Date of Service: 11/05/24 Procedure(s): US arterial duplex BI w/ INO Accession Number(s): [id number] cc: Skinny Morales MD; Kenton Casas MD [...] 11/05/24 1548 DD/ 1430 TD/TT: 11/05/24 1505 Assistant To The Director: [address] [address] Ultrasound Report Signed Patient: Nakul Aguilera MR#: [id number] : 1940 Acct:[id number] Age/Sex: 84 / M ADM Date: 11/05/24 Loc: HO.US Attending Dr: Kenton Casas MD Ordering Physician: Kenton Casas MD Date of Service: 11/05/24 Procedure(s): US arterial duplex BI w/ INO Accession Number(s): [id number] cc: Skinny Morales MD; Kenton Casas MD [...] 11/05/24 1548 DD/ 1430 TD/TT: 11/05/24 1505 Assistant To The Director: Reason For Referral Reason balance problems Diagnosis [...] 1 tablet Orally Once a day Active Immunizations Vaccine Route Administration Date Status Comme [...] Intramuscular 12/26/2017 Administered pt had vaccine at [facility] on [facility]. 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) Active confirmed Problem 923550160 Peripheral vascu lar disease (I73.9) Active confirmed Problem 91517108 Unsteady gait (R26.81) Active confirme d Problem 284538308 Pure hypercholesterolemia (E78.00) Active confirmed Problem 534101542233573 Atherosclerosis of both carotid arteries (I65.23) Active confirmed Problem Problem with balance (797489057) Balance problems (R26.89) Active confirmed Vital Signs Blood pressure diastolic 64 mm Hg 11/30/2024 Height 72 in 11/30/2024 Blood pressure systolic 122 mm Hg 11/30/2024 Weight 234 lbs 11/30/2024 BMI 31.73 kg/m2 11/30/2024 Encounters Encounter Location Date Provider Diagnosis Skinny Morales MD [address] [place] [address] Drive [address] [place], [place] [id number] 01/16/2024 Skinny Morales Pure hypercholestero lemia E78.00 and Encounter for immunization Z23 Skinny Moraels MD [address] [place] [id number] 07/13/2024 Skinny Morales Pure hypercholestero lemia E78.00 Skinny Morales MD [address] [place] [id number] 01/23/2024 Skinny Morales Pure hypercholestero lemia E78.00 Skinny Morales MD [address] [place] [id number] 07/20/2024 Skinny Morales Anxiety F41.9 ; Unst jennifer gait R26.81 ; Foot drop, left M21.372 and Pure hypercholesterolemia E78.00 Skinny Morales MD [address] [place] [id number] 09/29/2024 Skinny Morales Balance problems R26 .89 ; Peripheral vascular disease I73.9 and Adrenal adenoma, unspecified laterality D35.00 Skinny Morales MD [address] [place] [id number] 11/30/2024 Skinny Morales Spinal stenosis at L 4-L5 level M48.061 Skinny Morales MD [address] [place] [address] [id number] 09/22/2024 Skinny Morales Assessments Encounter Date Diagnosis [...] - R26.89) [place] refer to [place]y [place] [facility] 09/29/2024 Peripheral vascular disease (ICD-10 - I73.9) to see dr casas this weeki 11/30/2024 Spinal stenosis at L4-L5 level (ICD-10 - M48.061) pending diagnostic testing, order faxed to [facility] dept 07/20/2024 Foot drop, left (ICD -10 - [...] US LEG RT VENOUS DOPPLER 07/30/2011 CT lumbar spine wo con 11/30/2024 US carotid duplex BI 01/16/2022 Next Appt Details Provider Name:Skinny jansen, 01/14/2025 07:30:00 AM, [address] [place] [address], [address], [id number], Provider Name:Skinny jansen, 01/21/2025 01:45:00 PM, [address] [place] [address], [address], [id number], Provider Name:Skinny beachr, 07/16/2025 07:30:00 AM, [address] [place] [address], [address], [phone], Provider Name:Skinny beachr, 07/23/2025 01:00:00 PM, [address] [place] [address], [address], [id number], Insurance Providers Payer Name Payer Address Payer Phone Subscriber Number Group Number Insured Name Patient Relationship to Insured Coverage Start Date Coverage End Date [employer] [address] [place] [id number] Self - patient is the insured MEDEX BCBS OF [facility] [address] [place] [address] [id number] Self - patient is the insured Medical (General) History Medical History History ICD Code disc disease colonoscopy due in 2011; col onoscopy 07/28/2013 hyperplastic polyp no further colonoscopy hematuria eval 2016 Inguinal adenopathy 785.6
== END 2024-12-16 12:08 | disposition home or self-care (01) ==
LOC: HO.HSM 10:55
PROVIDERS: PCP Internal Medicine; Referring Provider Internal Medicine; Visit Provider Psychiatry & Neurology Neurology
DX: G62.9 Polyneuropathy, unspecified (principal)
CPT/HCPCS: 99214

== ENCOUNTER → 2024-12-16 10:54 | Outpatient (BNVA) | payer MEDICARE, SELFPAY | PROVIDERS: PCP Internal Medicine; Referring Provider Internal Medicine; Visit Provider Psychiatry & Neurology Neurology | DX: G62.9 Polyneuropathy, unspecified (principal) | CPT/HCPCS: 99212 ==

== ENCOUNTER 2024-12-28 09:30 | Outpatient (REF) | payer MEDICARE, SELFPAY ==
--- NOTE | ~2024-12-28 | CT_ITS ---
EXAMINATION: CT LUMBAR SPINE WITHOUT CONTRAST CLINICAL INFORMATION: Spinal stenosis at L4-L5 level x-ray September 27, 2018, MRI February 26, 2018 COMPARISON: None available. TECHNIQUE: This CT examination was performed using dose optimization techniques as appropriate, variously including the following: *Automated exposure control *Adjustment of mA and/or kV according to patient size (this includes techniques or standardized protocols for targeted exams where dose is matched to indication/reason for exam; i.e. extremities or head) *Use of iterative reconstruction technique DLP: 1214 mGY*cm FINDINGS: Again seen is a lipid rich adrenal adenoma on the left measuring -0.4 Hounsfield units and 27 x 32 mm, previously 26 x 29 mm. Lung bases are clear. There were 5 [id number]-[id number] lumbar segments with sacralization of L5. L5 transverse processes pseudoarticulate with the sacrum. The right side demonstrates degenerative cystic change. There is 19 degrees dextroscoliosis with apex at L2, similar to the prior MRI. T12-L1: There is severe loss of disc height with vacuum phenomenon and endplate degenerative changes, increased since the prior study. There are endplate osteophytes with bulging disc resulting in moderate spinal stenosis, asymmetric toward the right subarticular zone. There is moderate facet osteoarthritis. There is moderate severe right and moderate left foraminal narrowing that appears increased. L1-L2: There is severe loss of disc height with endplate osteophytes and circumferential bulging disc that has progressed since prior examination. There is calcification within the disc likely representing pyrophosphate deposition. There is moderate facet osteoarthritis. There is moderate spinal stenosis and severe narrowing of the left subarticular zone that is stable to increased. There is mild right and severe left foraminal narrowing, increased on the left. L2-L3: There is mild loss of disc height and vacuum phenomena, slightly increased the prior. There are degenerative endplate changes and endplate osteophytes with circumferential broad-based disc bulge and pyrophosphate deposition within the disc. There is mild right and moderate to severe left facet osteoarthritis. There is mild to moderate spinal stenosis and moderate to severe left subarticular zone narrowing. There is mild right and moderate to severe left foraminal narrowing similar to the prior. L3-L4: There is mild to moderate loss of disc height, increased since the prior. There are degenerative endplate changes and subtle retrolisthesis. Circumferential disc osteophyte complex and moderate facet osteoarthritis results in mild spinal stenosis and moderate to severe subarticular zone narrowing. There is moderate right and severe left foraminal narrowing similar to the prior. L4-L5: There is mild loss of disc height and stippled pyrophosphate deposition within the disc. There is subtle grade 1 anterolisthesis. Circumferential disc osteophyte complex is noted along with moderate severe right and moderate left facet osteoarthritis. There is mild to moderate spinal stenosis with moderate right and mild left subarticular zone narrowing. There is moderate right and severe left foraminal narrowing that is likely stable to increased. L5-S1: Disc spaces preserved. There is vacuum phenomena and stable pyrophosphate deposition within the disc. There is circumferential broad-based disc bulge and moderate bilateral facet osteoarthritis. There is likely mild spinal stenosis subarticular zone narrowing is not well demonstrated but likely present bilaterally, greater on the left.. There is moderate foraminal narrowing on the right and moderate to severe narrowing of the left, similar to the prior. 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 There is degenerative cystic change and sclerosis involving the right pseudoarticulation. Moderate severe degenerative disc disease and facet osteoarthritis with underlying features of CPPD arthropathy. Degenerative changes of increased since prior examination. L1-L2: There is moderate spinal stenosis and severe narrowing of the left subarticular zone that is stable to increased. There is mild right and severe left foraminal narrowing, increased on the left. L2-L3: There is mild to moderate spinal stenosis and moderate to severe left subarticular zone narrowing. There is mild right and moderate to severe left foraminal narrowing similar to the prior. L3-L4: There is mild spinal stenosis and moderate to severe subarticular zone narrowing. There is moderate right and severe left foraminal narrowing similar to the prior. L4-L5: There is mild to moderate spinal stenosis with moderate right and mild left subarticular zone narrowing. There is moderate right and severe left foraminal narrowing that is likely stable to increased. L5-S1: There is likely mild spinal stenosis subarticular zone narrowing is not well demonstrated but likely present bilaterally, greater on the left. There is moderate foraminal narrowing on the right and moderate to severe narrowing of the left, similar to the prior. Lipid rich adrenal adenoma on the left shows continued increase in size. Electronically signed by: Jose Ramon Diamond MD 12/28/2024 11:06 AM EDT RP
--- OUTSIDE RECORDS SUMMARY | 2024-12-28 10:18 | XMS_ITS | Encounter Summary ---
Author Organization [facility] Address [address] [place] [address] Phone Care Team Providers Care Water Main Installer Helper Name Role Phone Adonay Morales MD Primary Care Provid er Encounter Details Date Type Department Care Team (Late st Contact Info) Description 07/29/2019 Ancillary Orders Non-Invasive Cardiology [address] [place] [address] Donovan Ernandez DO [address] [place] [address] [email or web address] Dyspnea on exertion; Shortness of breath Social History Tobacco Use Types Packs/Day Years Used Date Smoking Tobacco: Never Assessed Sex and Gender Information Value Date Recorded Sex Assigned at Not on file Legal Sex Male 10:11 PM EDT Gender Identity Not on file Sexual Orientation Not on file documented as of this encounter Plan of Treatment Not on file documented as of this encounter Results * NC Stress Result for Nuclear Stress Test (07/29/2019 11:03 AM EDT) Max BP Systolic 204 mmHg [facility] Max BP Diastolic 100 mmHg [facility] Max HR 148 BPM [facility] Resting HR 77 BPM [facility] Resting BP Systolic 134 mmHg [facility] Resting BP Diastolic 80 mmHg [facility] Peak METS 7.0 METS [facility] Peak HR 130 BPM [facility] Anatomical Region Laterality Modality Heart Other 07/29/2019 10:2 6 AM EDT 07/29/2019 11:05 AM EDT Narrative 07/30/2019 8:15 AM EDT Response to Stress The patient exercised for minutes seconds, achieving 7.0 METS at peak exercise. Baseline blood pressure was 134/80 mmHg, and baseline heart rate was 77 bpm. The patient achieved a peak heart rate of 130 bpm, which is% of their maximum predicted heart rate. REPORT: Patient exercised for 6:00 minutes on a standard Kamaljit protocol achieving 7.0 METs and 103% MPHR (148 BPM). The test was terminated due to gait instability. SUMMARY: 1. RESTING ECG: sinus rhythm HR 65 bpm with RBBB and NSSTW abnormalities. 2. EXERCISE ECG: non-diagnostic due to mild exaggeration of baseline ECG abnormalities. 3. SYMPTOMS: Patient reported shortness of breath and had audible upper respiratory wheezing, no chest pain. 4. PHYSIOLOGY: Appropriate exercise physiology. Resting heart rate of 77 bpm darin to a max heart rate of 148 bpm, this represents 103% MPHR. Resting BP of 134/80 darin to a max BP of 204/100. Vital signs stable and returned to baseline prior to discharge from the lab. Achieved 7.0 METs consistent with average functional capacity for age. 5. ARRHYTHMIA: frequent isolated PVCs and PACs, occasional ventricular couplets and a few brief runs of atrial tachycardia. CONCLUSION: Non-diagnostic ECG portion of exercise nuclear stress test due to mild exaggeration of baseline ECG abnormalities. Appropriate exercise physiology. Average functional capacity. Nuclear images and report to follow. Leatha Quigley PA-C with Dr. Castro . us Donovan Hinkleolemasood CARDONA CV NM CARDIAC Final Result documented in this encounter Visit Diagnoses Diagnosis Dyspnea on exertion Other dyspnea and respiratory abnormality Shortness of breath Dyspnea on exertion Other dyspnea and respiratory abnormality Shortness of breath documented in this encounter Care Teams Water Main Installer Helper Relationship Specialty Start Date End Date Adonay Morales MD [address] [place] [address] PCP - General Internal Medicine 07/29/19 documented as of this encounter Additional Source Comments The information contained in this document represents components of the legal health record. It is not the complete legal health record.[facility]
--- OUTSIDE RECORDS SUMMARY | 2024-12-28 10:18 | XMS_ITS | Clinical Summary ---
Author Organization [facility] Address [address] [place] [address] Care Team Providers Care Fabricator Foam Rubber Name Role Phone Skinny Morales MD Primary Care Provider +1- [phone] Allergies No known active allergies Medications Medication [...] age to complete this topic Care Teams Fabricator Foam Rubber Relationship Specialty Start Date End Date Skinny Morales MD [address] [place] [address] PCP - General Internal Medicine 02/14/18
== END 2024-12-28 09:31 | disposition home or self-care (01) ==
LOC: HO.CT 09:30
PROVIDERS: PCP Internal Medicine; Visit Provider Internal Medicine
DX: M48.061 Spinal stenosis, lumbar region without neurogenic claudication (principal)
CPT/HCPCS: 72131

== ENCOUNTER → 2024-12-28 09:45 | Outpatient (BNV) | payer MEDICARE, SELFPAY | PROVIDERS: PCP Internal Medicine; Visit Provider Radiology Diagnostic Radiology | DX: M51.360 Other intervertebral disc degeneration, lumbar region with discogenic back pain only (principal) | CPT/HCPCS: 72131 ==

== ENCOUNTER 2025-01-14 12:28 | Outpatient (REF) | payer MEDICARE, SELFPAY ==
--- OUTSIDE RECORDS SUMMARY | 2024-09-22 05:26 | XMS_ITS ---
Author Organization Skinny Morales MD Address [address] [place] [phone] Care Team Providers Care Shift Manager Name Role Phone AndrewHusseinn Primary Care Provider [phone] REASON FOR VISIT ER Encounters Encounter Location Date Provider Diagnosis Skinny Morales MD [address] [facility] [address] [place] [phone] 09/22/2024 Skinny Morales Plan Of Treatment Next Appt Details Provider Name:Skinny jansen, 01/21/2025 01:45:00 PM, [address] [place] [address], [address], [phone], Provider Name:Skinny jansen, 07/16/2025 07:30:00 AM, [address] [place] [address], [address], [phone], Provider Name:Skinny jansen, 07/23/2025 01:00:00 PM, [address], [address], [place], [place], [phone], Progress Notes * Nakul UGARTEDOB: (84 yo M)Acc No.[id number]:09/22/2024 Patient: Nakul TEJADA :1940 A ge:84 Y S ex:Male Address:[address] [place] [id number] * true * Date: Generated for Nino duenas/Mariah/Yesismitting on: 0 01/14/2025 04:43 PM EDT
--- OUTSIDE RECORDS SUMMARY | 2024-09-29 10:00 | XMS_ITS ---
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 Name Role Phone NinaSkinny workman Primary Care Provider [phone] Allergies No Known Allergies Reason For Referral Reason balance problems Diagnosis 1 Balance problems (R2 6.89) Referral Organization Skinny Morales MD Referring Provider First Name Skinny Referring Provider Last Name Andrew Referring Provider Speciality Internal M edicine Referred Provider Lala Boogie Referred Provider Specialty Neurology General Notes Akua Gale 0 09/29/2024 03:01:00 PM > referral info faxed, Akua Gale 10/02/2024 08:04:18 AM referral info mailed to patient, QuyenAltaRhina medeirostiffany Groves 10/23/2024 03:13:58 PM >OFFICE NOTE RECD Referral Priority Routine Referral Appointment Date 10/21/2024 REASON FOR VISIT must see/discuss adrenal gland F/U ER Visit wants to see a neurologist. can't balance Medications Medication SIG (Take, Route, Frequency, Duration) Notes Start Date End Date Status Albuterol Sulfate HFA 108 (90 Base) MCG/ACT 1 puff as needed Inhalation every 4 hrs Not-Takin g Atorvastatin Calcium 40 MG TAKE 1 TABLET BY MOUTH EVERY DAY Active Aspir-81 81 MG 1 tablet Orally Once a day Active PARoxetine HCl 20 MG 1 tablet in the mor karen Orally Once a day for 30 days 07/20/2024 Active Furosemide 20 MG 1 tablet Orally Once a day for 30 day(s) Not-Taking Problems Problem Type SNOMED Code ICD Code Onset Dates Problem Status W/U Status Risk Notes Problem Problem with balance ([id number]) Balance problems (R26.89) Active confirmed Vital Signs Blood pressure systolic 104 mm Hg 09/30/19 Blood pressure diastolic 66 mm Hg 025 Height 72 in 09/29/2024 Weight 234 lbs 09/29/2024 BMI 31.73 kg/m2 09/29/2024 weight is down 3 pounds [facility] 07-20-24 Encounters Encounter Location Date Provider Diagnosis Skinny Morales MD [address] [place], [place] [id number] 09/29/2024 Skinny Morales Balance problems R26.89 ; Peripheral vascular disease I73.9 and Adrenal adenoma, unspecified laterality D35.00 Assessments Encounter Date Diagnosis (ICD Code) Assessment Notes Treatment Notes Treatment Clinical Notes Section Notes 09/29/2024 Balance problems (ICD-10 - R26.89) [place] [facility] [place]/29/[place]24 Peripheral vascular disease (ICD-10 - I73.9) to see dr katelynn mcgrath 09/29/2024 Adrenal adenoma, unspecified laterality (ICD-10 - D35.00) no change in 9 years Plan Of Treatment Treatment Notes Assessment Notes Balance problems will refer [place] [facility] [place]ipheral vascular disease to see dr dora stevens Adrenal adenoma, unspecified laterality no change in 9 years Referrals Referral Date Details 09/29/2024 09/29/2024, balance problems, Lala Boogie Next Appt Details Follow Up: 2 Months, Reason: Provider Name:Skinny jansen, 01/21/2025 01:45:00 PM, [address] [place] [address], [address], [place], [place], [phone], Provider Name:Skinny Templeton ier, 07/16/2025 07:30:00 AM, [address] [facility], [address], [place], [place], [phone], Provider Name:Skinny Templeton ier, 07/23/2025 01:00:00 PM, [address] [place] [address], [address], [place], [place], [phone], Progress Notes * Nakul AGUILERADOB: (84 yo M)Acc No.[id number]:09/29/2024 Patient: Kavon TEJADAmond Nuvia Provider: Migel Morales MD :1940 A ge:84 Y S ex:Male Date:09/29/2024 Address:[address] [place], [place] [phone] Subjective: * Chief Complaints: * m ust see/discuss adrenal gland F/U ER Visit wants to see a neurologist. can't balance * HPI: S ymptom(s): patient is a 84 yo male to discuss adrenal gland/ has sore rt shoulder after fall. F all Risk: History H ave you had any falls with injury in the past year? Y es 5-19-25 staining his deck was on his knees but fell forward onto his right shoulder. * ROS: G eneral/Constitutional: Denies C hills. D enies F atigue. D enies F ever. D enies H eadache. E NT: Denies S ore throat. R espiratory: Denies C ough. D enies S hortness of breath at rest. D enies S hortness of breath with exertion. G astrointestinal: Denies D iarrhea. D enies N ausea. * Medical History: * Surgical History: * Hospitalization/Major Diagno stic Procedure: * Medications: T akingAspir-81 81 MG Tablet Delayed Release 1 tablet Orally Once a day PARoxetine HCl 20 MG Tablet 1 tablet in the morning Orally Once a day Atorvastatin Calcium 40 MG Tablet TAKE 1 TABLET BY MOUTH EVERY DAY Taking Aspir-81 81 MG Tablet Delayed Release 1 tablet Orally Once a day Taking PARoxetine HCl 20 MG Tablet 1 tablet in the morning Orally Once a day Taking Atorvastatin Calcium 40 MG Tablet TAKE 1 TABLET BY MOUTH EVERY DAY Not-Taking/PRNFurosemide 20 MG Tablet 1 tablet Orally Once a day Albuterol Sulfate HFA 108 (90 Base) MCG/ACT Aerosol Solution 1 puff as needed Inhalation every 4 hrs Medication List reviewed and reconciled with the patientNot-Taking/PRN Furosemide 20 MG Tablet 1 tablet Orally Once a day Not-Taking/PRN Albuterol Sulfate HFA 108 (90 Base) MCG/ACT Aerosol Solution 1 puff as needed Inhalation every 4 hrs Medication List reviewed and reconciled with the patient * Allergies: N .K.D.A.yes[Allergies Verified] Objective: * Vitals: H t: 72, Wt: 234, BMI:31.73, BP:104/66, Wt-k.14. weight is down 3 pounds since 07-20-24. * Examination: G eneral Examination: GENERAL APPEARANCE: a lert, well hydrated, in no distress.? HEAD: n ormocephalic. SKIN: g ood turgor. HEART: r egular rate and rhythm, no murmurs, rubs, gallops.? LUNGS: n o wheezes, rales, rhonchi, good air movement, clear to auscultation bilaterally. EXTREMITIES: r t foot blue and no pulse palpable. ? Assessment: * Assessment: 1. B alance problems - R26.89 (Primary) 2 . P eripheral vascular disease - I73.9 3 . A drenal adenoma, unspecified laterality - D35.00 Plan: * Treatment: 2. P eripheral vascular disease Notes: to see dr pace this weeki 3. A drenal adenoma, unspecified laterality Notes: no change in 9 years * Procedure Codes: * Follow Up: 2 Months * * Sign off status: Completed true * Provider: Migel Morales MD Date: 0 09/29/2024 Generated for Nino duenas/Mariah/eTransmitting on: 0 01/14/2025 04:44 PM EDT History and Physical Notes * HPI (History of Present Illness) Category Sub-Category Detail Notes Category Not es Symptom(s) patient is a 84 yo male to discuss adrenal gland/ has sore rt shoulder after fall Fall Risk History Have you had any falls with injury in the past year?: Yes 09-21-[address] his deck was on his knees but fell forward onto his right shoulder Examination Category Sub-Category Detail Notes Category Not es General Examination GENERAL APPEARANCE: alert, w ell hydrated, in no distress HEAD: normocephalic HEART: regular rate and rhy thm, no murmurs, rubs, gallops LUNGS: no wheezes, rales, r honchi, good air movement, clear to auscultation bilaterally SKIN: good turgor EXTREMITIES: rt foot blue and no pulse palpable Consultation Request Notes Referral Date Referring Provider Referred Provider Not es 09/29/2024 Skinny Morales, Lala [place] problems
--- OUTSIDE RECORDS SUMMARY | 2024-10-13 12:15 | XMS_ITS ---
Author Organization Skinny Morales MD Address [address] [place] [phone] Care Team Providers Care Plane Runner Name Role Phone Skinny Morales Primary Care Provider Allergies No Known Allergies REASON FOR VISIT REFERRAL TO NEUROLOGY Encounters Encounter Location Date Provider Diagnosis Skinny Morales MD [address] [facility] [address] [place] [id number] 10/13/2024 Skinny Morales Plan Of Treatment Next Appt Details Provider Name:Skinny jansen, 01/21/2025 01:45:00 PM, [address] [place] [address], [address], [phone], Provider Name:Skinny jansen, 07/16/2025 07:30:00 AM, [address] [place] [address], [address], [phone], Provider Name:Skinny Ramirez Yokasta ier, 07/23/2025 01:00:00 PM, [address], [address], [place], [place], [phone], Progress Notes * Nakul UGARTE JDOB: (84 yo M)Acc No.[id number]:10/13/2024 Progress Notes Patient: Nakul TEJADA Provider: Migel Morales MD :1940 A ge:84 Y S ex:Male Date:10/13/2024 Address:[address] [place] [address], [facility] Subjective: * Chief Complaints: * 1 . REFERRAL TO NEUROLOGY. * ROS: G eneral/Constitutional: Denies C hills. D enies F atigue. D enies F ever. D enies H eadache. E NT: Denies S ore throat. R espiratory: Denies C ough. D enies S hortness of breath at rest. D enies S hortness of breath with exertion. G astrointestinal: Denies D iarrhea. D enies N ausea. * Medical History: D isc disease, Colonoscopy due in 2011; colonoscopy 07/28/2013 hyperplastic polyp no further colonoscopy, Hematuria eval 2015, Inguinal adenopathy. * Allergies: N .K.D.A. Objective: * Vitals: Assessment: Plan: * Treatment: * * The named appointment provid er may or may not be the originator of this progress note, and it is not deemed complete until electronically signed by the appointment provider. Sign off status: Pending * Provider: Migel Morales MD Date: 0 10/13/2024 Generated for Nino duenas/Mariah/Guevaraitting on: 01/14/2025 04:44 PM EDT
--- OUTSIDE RECORDS SUMMARY | 2024-11-30 10:00 | XMS_ITS ---
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 Role Phone Skinny Morales Primary Care Provider [phone] Allergies No Known Allergies REASON FOR VISIT 2 month, accompanied by Medications Medication SIG (Take, Route, Frequency, Duration) Notes Start Date End Date Status PARoxetine HCl 20 MG 1 tablet in the mor karen Orally Once a day for 30 days 07/20/2024 Active Atorvastatin Calcium 40 MG TAKE 1 TABLET BY MOUTH EVERY DAY Active Furosemide 20 MG 1 tablet Orally Once a day for 30 day(s) Not-Taking Albuterol Sulfate HFA 108 (90 Base) MCG/ACT 1 puff as needed Inhalation every 4 hrs Not-Takin g Aspir-81 81 MG 1 tablet Orally Once a day Active Vital Signs Blood pressure systolic 122 mm Hg 12/01/19 25 Blood pressure diastolic 64 mm Hg 07/28/2 025 Height 72 in 11/30/2024 Weight 234 lbs 11/30/2024 BMI 31.73 kg/m2 11/30/2024 Encounters Encounter Location Date Provider Diagnosis Skinny Morales MD [address] [place] [address] [place] [phone] 11/30/2024 Skinny Morales Spinal stenosis at L4-L5 level M48.061 Assessments Encounter Date Diagnosis (ICD Code) Assessment Notes Treatment Notes Treatment Clinical Notes Section Notes 11/30/2024 Spinal stenosis at L4-L5 level (ICD-10 - M48.061) pending diagnostic testing, order faxed to [facility] dept Plan Of Treatment Treatment Notes Assessment Notes Spinal stenosis at L4-L5 level pending d iagnostic testing, order faxed to [facility] de[facility] Pending Test Test Name Order Date CT lumbar spine wo con 11/30/2024 Next Appt Details Follow Up: 4 Weeks, Reason: Provider Name:Skinny jansen, 01/21/2025 01:45:00 PM, [address] [place] [address], Suite [facility], [place], [place], [phone], Provider Name:Skinny jansen, 07/16/2025 07:30:00 AM, [address] [place] [address], [place] [address], [place], [place], [phone], Provider Name:Skinny jansen, 07/23/2025 01:00:00 PM, [address] [place] [address], [address] [place] [address], [phone], Progress Notes * Nakul UGARTEDOB: (84 yo M)Acc No.[id number]:11/30/2024 Progress Notes Patient: Kris KELINJARODNakul Garcia Provider: Migel Morales MD :1940 A ge:84 Y S ex:Male Date:11/30/2024 Address:[address] [place], [place] [phone] Subjective: * Chief Complaints: * 2 monthAccompanied by * HPI: S ymptom(s): patient is a 84 yo male here for 2 month follow up visit/ here for follow up. / balance is very bad. saw dr pace and he said is circulation is good. saw dr ray and had emgs. * ROS: G eneral/Constitutional: Denies C hills. [...] Vitals: H t: 72, Wt: 234, BMI:31.73, BP:122/64, Wt-k.14. * Examination: G eneral Examination: GENERAL APPEARANCE: a lert, well hydrated, in no distress.? HEAD: n ormocephalic. HEART: n o murmurs, rubs, gallops, regular rate and rhythm.? LUNGS: g ood air movement, clear to auscultation bilaterally. Assessment: * Assessment: 1. S kristal stenosis at L4-L5 level - M48.061 (Primary) Plan: * Treatment: * Procedure Codes: * Follow Up: 4 Weeks * * Sign off status: Completed true * Provider: Migel Morales MD Date: 11/30/2024 Generated for Nino duenas/Mariah/Guevaraitting on: 0 01/14/2025 04:44 PM EDT History and Physical Notes * HPI (History of Present Illness) Category Sub-Category Detail Notes Category Not es Symptom(s) patient is a 84 yo male here for 2 month follow up visit/ here for follow up. / balance is very bad. saw dr pace and he said is circulation is good. saw dr ray and had emgs Examination Category Sub-Category Detail Notes Category Not es General Examination GENERAL APPEARANCE: alert, w ell hydrated, in no distress HEAD: normocephalic HEART: no murmurs, rubs, ga llops, regular rate and rhythm LUNGS: good air movement, c lear to auscultation bilaterally
--- OUTSIDE RECORDS SUMMARY | 2025-01-14 03:30 | XMS_ITS ---
Author Organization Skinny Morales MD Address [address] [place], [place] [id number] Care Team Providers Care Hot Roll Inspector Name Role Phone Skinny Morales Primary Care Provider Results Component Value Reference Range Notes Liver Panel Reviewed date:01/14/2025 04:37:42 PM Interpretation: Performing Lab:[facility], [address] [place] [id number] Notes/Report: Bilirubin Total 0.7 0.0-1.0 mg/dL Bilirubin Direct 0.2 0.0-0.5 mg/dL Aspartate Amino Transferase 26 5-37 U/L Alanine Aminotransferase 15 0-40 U/L Total Protein 6.9 6.5-8.0 g/dL Albumin Level 4.5 3.5-5.0 g/dL Alkaline Phosphatase 64 39-117 U/L Lipid Panel with Reflex Reviewed date:01/14/2025 04:38:14 PM Interpretation: Performing Lab:[facility], [address] [place] [address] Notes/Report: Triglycerides 59 <150 mg/dL Desirable Triglyceride: less than 150 mg/dL Borderline High Triglyceride 150-199 mg/dL High Triglyceride: 200-499 mg/dL Very High Triglyceride: greater than or equal to 5OO mg/dL Cholesterol 133 <200 mg/dL Desirable Cholesterol: less than 200 mg/dL Borderline High Cholesterol: 200-239 mg/dL High Cholesterol: greater than 239 mg/dL LDL Cholesterol Calculated 72 <100 mg/dL Desirable LDL: less than 100 mg/dL Near Optimal/Above Optimal LDL: 110-129 mg/dL Borderline High LDL: 130-159 mg/dL High LDL: 160-189 mg/dL Very High LDL: greater than or equal to 190 mg/dL HDL Cholesterol 50 >40 mg/dL Desirable HDL: greater than 40 mg/dL Note: This HDL assay may give artificially low results in patients with liver disease. REASON FOR VISIT fasting lipids Immunizations Vaccine Route Administration Date Status Comme nts Influenza High Dose IM Intramuscular 01/14/2025 Administer ed Encounters Encounter Location Date Provider Diagnosis Skinny Morales MD [address] [place] [address] [place] [id number] 01/14/2025 Skinny Morales Pure hypercholestero lemia E78.00 and Encounter for administration of vaccine Z23 Assessments Encounter Date Diagnosis (ICD Code) Assessment Notes Treatment Notes Treatment Clinical Notes Section Notes 01/14/2025 Pure hypercholesterolemia (ICD-10 - E78.00) 01/14/2025 Encounter for administration of vaccine (ICD-10 - Z23) Plan Of Treatment Next Appt Details Provider Name:Skinny jansen, 01/21/2025 01:45:00 PM, [address] [place] [address], [address] [place] [address], [id number], Provider Name:Skinny jansen, 07/16/2025 07:30:00 AM, [address] [place] [address], [address] [place] [address], [id number], Provider Name:Skinny jansen, 07/23/2025 01:00:00 PM, [address] [place] [address], [address] [place] [address], [id number], Progress Notes * Nakul UGARTE JDOB: (84 yo M)Acc No.[id number]:01/14/2025 Progress Note Patient: Nakul TEJADA Provider: Migel Morales MD :1940 A ge:84 Y S ex:Male Date:01/14/2025 Address:[address] [place], [place] [id number] Subjective: * Chief Complaints: * 1 . Fasting lipids. * Medical History: Objective: * Vitals: Assessment: * Assessment: 1. P ure hypercholesterolemia - E78.00 (Primary) 2 . E ncounter for administration of vaccine - Z23 Plan: * Treatment: * Immunizations: Influenza High Dose : 0.5 mL (Dose No:1) (Route: Intramuscular) given by Shawna Cotto , Office Staff on Left Deltoid * Procedure Codes: 3 6415 VENIPUNCT, ROUTINE*, 95225 FLU VACC PRSV FREE INC ANTIG, G0008 ADMN FLU VAC NO FEE SCHED SAME DAY * * The named appointment provid er may or may not be the originator of this progress note, and it is not deemed complete until electronically signed by the appointment provider. Sign off status: Pending * Provider: Migel Morales MD Date: 01/14/2025 Generated for Nino duenas/Mariah/Guevaraitting on: 01/14/2025 04:44 PM EDT
[2025-01-14 13:09] LABS: Alanine Aminotransferase 15 U/L (0-40); Albumin Level 4.5 g/dL (3.5-5.0); Alkaline Phosphatase 64 U/L (39-117); Aspartate Amino Transferase 26 U/L (5-37); Cholesterol 133 mg/dL (<200); HDL Cholesterol 50 mg/dL (>40); Total Protein 6.9 g/dL (6.5-8.0); Triglycerides 59 mg/dL (<150)
[2025-01-14 14:09] LABS: Reflex LDLD? No
--- OUTSIDE RECORDS SUMMARY | 2025-01-14 16:44 | XMS_ITS | Patient Health Record ---
Author Organization [facility] Address [address] [place] [address] Care Team Providers Care Technical Translator Name Role Phone Skinny Morales MD Primary Care Provider Charles Zamudio [phone] Reason For Referral No Information Medications Medication SIG (Take, Route, Frequency, Duration) Notes Start Date End Date Status Colyte with Flavor Packs 227.1 GM as directed Orally as directed for 1 day(s) 06/02/2013 Active Aspir-81 Active Problems Problem Type SNOMED Code ICD Code Onset Dates Problem Status W/U Status Risk Notes Problem Screening for colon cancer (890274148) Screening for colon cancer (V76.51) Active confirmed Problem Long-term current use of aspirin (3234901779554 03) Aspirin long-term use (V58.66) Active confirmed Plan Of Treatment Future Test Test Name Order Date COLONOSCOPY 06/02/2013 Insurance Providers Payer Name Payer Address Payer Phone Subscriber Number Group Number Insured Name Patient Relationship to Insured Coverage Start Date Coverage End Date MEDICARE OF [place] [address] [place] [address] [id number] Self - patient is the insured [employer] ATT[employer] CLAIMS [address] [place] [address] [id number] Self - patient is the insured Medical (General) History Medical History History ICD Code Denies [place],DM,CVA,Lung disease,renal dise ase Colonoscopy in 08/2001-neg. 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
--- OUTSIDE RECORDS SUMMARY | 2025-01-14 16:45 | XMS_ITS | Clinical Summary ---
Author Organization [facility] Address [address] [place] [address] Care Team Providers Care Manager Floral Name Role Phone Skinny Morales MD Primary Care Provider [phone] Allergies No known active allergies Medications Medication [...] age to complete this topic Care Teams Manager Floral Relationship Specialty Start Date End Date Skinny Morales MD [address] [place] [address] PCP - General Internal Medicine 02/14/18
--- OUTSIDE RECORDS SUMMARY | 2025-01-14 16:45 | XMS_ITS | Encounter Summary ---
Author Organization [facility] Address [address] [place] [address] Phone Care Team Providers Care Skidder Driver Name Role Phone Adonay Morales MD Primary Care Provid er Encounter Details Date Type Department Care Team (Late st Contact Info) Description 07/29/2019 Ancillary Orders Non-Invasive Cardiology [address] [place] [address] Donovan Ernandez DO [address] [place] [address] [email or web address] Dyspnea on exertion; Shortness of breath Social [...] AM EDT) Max BP Systolic 204 mmHg [facility] Max BP Diastolic 100 mmHg [facility] Max HR 148 BPM [facility] Resting HR 77 BPM [facility] Resting BP Systolic 134 mmHg [facility] Resting BP Diastolic 80 mmHg [facility] Peak METS 7.0 METS [facility] Peak HR 130 BPM [facility] Anatomical Region Laterality Modality Heart Other 07/29/2019 [...] breath documented in this encounter Care Teams Skidder Driver Relationship Specialty Start Date End Date Adonay Morales MD [address] [place] [address] PCP - General Internal Medicine 07/29/19 documented as of this encounter Additional Source Comments The information contained in this document represents components of the legal health record. It is not the complete legal health record.[facility]
--- OUTSIDE RECORDS SUMMARY | 2025-01-14 16:45 | XMS_ITS | Patient Health Record ---
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 Name Role Phone Skinny Morales Primary Care Provider Allergies No Known Allergies Results Component Value Reference Range Notes Liver Panel Reviewed date:01/17/2024 08:37:55 AM Interpretation: Performing Lab:[facility], [address] [place] [phone] Notes/Report: Bilirubin Total 0.6 0.0-1.0 mg/dL Bilirubin Direct 0.2 0.0-0.5 mg/dL Aspartate Amino Transferase 22 5-37 U/L Alanine Aminotransferase 15 0-40 U/L Total Protein 7.0 6.5-8.0 g/dL Albumin Level 4.4 3.5-5.0 g/dL Alkaline Phosphatase 62 39-117 U/L Lipid Panel with Reflex Reviewed date:01/17/2024 08:39:18 AM Interpretation: Performing Lab:[facility], [address] [place] [phone] Notes/Report: Triglycerides 61 <150 mg/dL Desirable Triglyceride: [...] ff Reviewed date:07/13/2024 06:10:21 PM Interpretation: Performing Lab:[facility], [address] [place] [phone] Notes/Report: White Blood Count 8.2 4.8-10.8 X10*3/uL [...] NRBC Abs Auto 0.000 0.0-0.012 X10*3/uL Comprehensive [place]. Panel Fa st Reviewed date:07/13/2024 06:09:35 PM Interpretation: Performing Lab:[address] [phone] Notes/Report: Sodium 142 135-145 mmol/L Potassium 4.1 [...] Panel Reviewed date:07/13/2024 12:40:52 PM Interpretation: Performing Lab:[address] [phone] Notes/Report: Triglycerides 69 <150 mg/dL Desirable Triglyceride: [...] (Free>4and<10) Reviewed date:07/13/2024 05:58:54 PM Interpretation: Performing Lab:[address] [address] Notes/Report: PSA,Total (Free>4and<10) 0.52 0.00-4.00 ng/mL A [...] t Reviewed date:07/13/2024 06:09:58 PM Interpretation: Performing Lab:[address] [address] Notes/Report: Urine, Clean Catch Color Urine Yellow Appearance Urine Clear PH 5.5 5.0-9.0 Glucose Urine UA Negative Negative mg/dL Urine Blood Negative Negative Specific [place] - Urine 1.025 1.005-1.025 Urine Protein Negative Neg-Trace mg/dL Urine Ketones Negative Negative mg/dL Nitrite Urine Negative Negative Leukocyte Esterase Urine Negative Negative RBC Urine 0-2 0-2 /HPF WBC Urine 0-5 0-5 /HPF Squamous Epithelial Cell Urine 0-2 0-2 /HPF Bacteria Urine None Seen None Seen Hyaline Casts Urine 0-2 0-2 /LPF Liver Panel Reviewed date:01/14/2025 04:37:42 PM Interpretation: Performing Lab:[facility], [address] [place] [phone] Notes/Report: Bilirubin Total 0.7 0.0-1.0 mg/dL Bilirubin Direct 0.2 0.0-0.5 mg/dL Aspartate Amino Transferase 26 5-37 U/L Alanine Aminotransferase 15 0-40 U/L Total Protein 6.9 6.5-8.0 g/dL Albumin Level 4.5 3.5-5.0 g/dL Alkaline Phosphatase 64 39-117 U/L Lipid Panel with Reflex Reviewed date:01/14/2025 04:38:14 PM Interpretation: Performing Lab:[facility], [address] [place] [phone] Notes/Report: Triglycerides 59 <150 mg/dL Desirable Triglyceride: [...] low results in patients with liver disease. Remy Lopez Reviewed date:01/16/2024 06:47:29 PM Interpretation: Performing Lab:[facility], [address] [place] [phone] Notes/Report: Remy Lopez See Note Specimen held untested for 24 hours; Call to request Chemistry testing. 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 No comparison. Findings: Small hiatal hernia. There is elevation o f the right hemidiaphragm. No pleural or perica rdial effusion. There are mild nonspecific pleural calcifications [...] in OV> 09/21/242005 DD/ 04 TD/TT: 09/21/242004 Candle Making Supervisor: CT abdomen pelvis w con Reviewed date:10/02/2024 07:26:55 AM Interpretation:09-29-2024 Performing Lab: Notes/Report: [place] [address] [address] Scan Report Signed Patient: Nakul Aguilera MR#: [id number] : 1940 Acct:[id number] Age/Sex: 84 / M ADM Date: 09/21/24 Loc: HO.ED Attending Dr: Ordering Physician: Vivian Carrillo DO Date of Service: 09/21/24 Procedure(s): CT abdomen pelvis w IV con Accession Number(s): [id number] cc: Skinny Morales MD; Vivian Carrillo DO Report Number: [id number]: Total DLP = 1162.88 mGy-cm CLINICAL HISTORY: [...] in OV> 09/21/242001 DD/ 00 TD/TT: 09/21/242000 Candle Making Supervisor: [place] [address] CT Scan Report Signed Patient: Nakul Aguilera MR#: [id number] : 1940 Acct:[id number] Age/Sex: 84 / M ADM Date: 09/21/24 Loc: HO.ED Attending Dr: Ordering Physician: Vivian Carrillo DO Date of Service: 09/21/24 Procedure(s): CT abd omen pelvis w IV con Accession Number(s): [id number] cc: Skinny Morales MD; Vivian Carrillo DO Report Number: [id number]: Total DLP = 1162.88 mGy-cm CLINICAL HISTORY: L flank pain bruising fall down embankment [address] of the abdomen an d pelvis utilizing intravenous contrast. No comparison. Findings: There is elevation o f the right hemidiaphragm. There is an indeterm inate 3 cm left adrenal nodule. There is [...] in OV> 09/21/242001 DD/ 00 TD/TT: 09/21/242000 Candle Making Supervisor: CT cervical spine wo con Reviewed date:09/29/2024 03:36:46 PM Interpretation: Performing Lab: Notes/Report: [address] [address] [address] Scan Report Signed Patient: Nakul Aguilera MR#: [id number] : 1940 Acct:[id number] Age/Sex: 84 / M ADM Date: 09/21/24 Loc: HO.ED Attending Dr: Ordering Physician: Vivian Carrillo DO Date of Service: 09/21/24 Procedure(s): CT cervical spine wo IV con Accession Number(s): [id number] cc: Skinny Morales MD; Vivian Carrillo DO Report Number: [id number]: Total DLP = 499.77 mGy-cm CLINICAL HISTORY: [...] in OV> 09/21/241957 DD/ 56 TD/TT: 09/21/241956 Candle Making Supervisor: [address] [address] [address] Scan Report Signed Patient: Nakul Aguilera MR#: [id number] : 1940 Acct:[id number] Age/Sex: 84 / M ADM Date: 09/21/24 Loc: HO.ED Attending Dr: Ordering Physician: Vivian Carrillo DO Date of Service: 09/21/24 Procedure(s): CT cer vical spine wo IV con Accession Number(s): [id number] cc: Skinny Morales MD; Vivian Carrillo DO Report Number: [id number]: Total DLP = 499.77 mGy-cm CLINICAL HISTORY: [...] in OV> 09/21/241957 DD/ 56 TD/TT: 09/21/241956 Candle Making Supervisor: CT head/brain wo con Reviewed date:09/22/2024 12:33:36 PM Interpretation: Performing Lab: Notes/Report: [address] [address] [address] Scan Report Signed Patient: Nakul Aguielra MR#: [id number] : 1940 Acct:[id number] Age/Sex: 84 / M ADM Date: 09/21/24 Loc: HO.ED Attending Dr: Ordering Physician: Vivian Carrillo DO Date of Service: 09/21/24 Procedure(s): CT head/brain wo IV con Accession Number(s): [id number] cc: Skinny Morales MD; Vivian Carrillo DO Report Number: [id number]: Total DLP = 818.68 mGy-cm CLINICAL HISTORY: [...] in OV> 09/21/241956 DD/ 55 TD/TT: 09/21/241955 Candle Making Supervisor: [place] [address] CT Scan Report Signed Patient: Nakul Aguilera MR#: [id number] : 1940 Acct:[id number] Age/Sex: 84 / M ADM Date: 09/21/24 Loc: HO.ED Attending Dr: Ordering Physician: Vivian Carrillo DO Date of Service: 09/21/24 Procedure(s): CT head/brain wo IV con Accession Number(s): [id number] cc: Skinny Morales MD; Vivian Carrillo DO Report Number: [id number]: Total DLP = 818.68 mGy-cm CLINICAL HISTORY: [...] in OV> 09/21/241956 DD/ 55 TD/TT: 09/21/241955 Candle Making Supervisor: venous duplex LE BI Reviewed date:11/03/2024 12:10:47 PM Interpretation: Performing Lab: Notes/Report: [address] [address] Ultrasound Report Signed Patient: Nakul Aguilera MR#: [id number] : 1940 Acct:[id number] Age/Sex: 84 / M ADM Date: 11/03/24 Loc: .US Attending Dr: Kenton Casas MD Ordering Physician: Kenton Casas MD Date of Service: 11/03/24 Procedure(s): US venous duplex LE BI Accession Number(s): [id number] cc: Skinny Morales MD; Kenton Casas MD [...] 11/03/24 1102 DD/ 1016 TD/TT: 11/03/24 1045 Candle Making Supervisor: [address] [address] Ultrasound Report Signed Patient: Nakul Aguilera MR#: [id number] : 1940 Acct:[id number] Age/Sex: 84 / M ADM Date: 11/03/24 Loc: .US Attending Dr: Kenton Casas MD Ordering Physician: Kenton Casas MD Date of Service: 11/03/24 Procedure(s): US cuate ous duplex LE BI Accession Number(s): [id number] cc: Skinny Morales MD; Kenton Casas MD EXAMINATION: US LOWER EXTREMITY V ENOUS (REFLUX EXAM), BILATERAL CLINICAL INFORMATION: Varices. COMPARISON: None. TECHNIQUE: Color flow triplex imaging and compression Doppler was performed to evaluate both the de ep and the superficial systems bilaterally. To evaluate the superfi cial system, the examination was performed in the upright position. Color-flow Doppler ultrasound and compression ultrasound were util ized. In addition, maneuvers were utilized to demonstrate reflux. FINDINGS: 1. DEEP VENOUS ULTRA SOUND OF THE RIGHT LOWER EXTREMITY: Common Femoral Vein: Compressible, normal respiratory variation and augmented flow. Femoral Vein: Compressible, normal color flow and augmentation. Popliteal Vein: Compressible, normal augmentation. Deep Reflux: 2472 ms at the popliteal vein. There is no evidence of a Benavides's cyst. 2. SUPERFICIAL ULTRA SOUND WITH DOPPLER OF RIGHT LOWER EXTREMITY: GREAT [...] cm; Reflux: 0 ms Proximal: 0.2 cm; Re flux: 0 ms Distal: 0.2 cm; Refl ux: 0 ms VEIN OF GIACOMINI: Size: 0.1 cm. Reflux: NA PERFORATORS: Location: Proximal t o mid calf. Size: 0.3-0.4 cm. Reflux: NA VARICOSITIES: Location: Accessory saphenous vein proximal segment. Size: 0.3 cm Reflux: 2372 ms. 3. DEEP VENOUS ULTRA SOUND OF THE LEFT LOWER EXTREMITY: Common Femoral Vein: Compressible, normal respiratory variation and augmented flow. Femoral Vein: Compressible, normal color flow and augmentation. Popliteal Vein: Compressible, normal augmentation. Deep Reflux: 2348 ms at the popliteal vein. There is no evidence of a Benavides's cyst. 4. SUPERFICIAL ULTRA SOUND WITH DOPPLER OF LEFT LOWER EXTREMITY: GREAT SAPHENOUS VEIN: Saphenofemoral Junct ion: 0.7 cm; Reflux: 0 ms Proximal Thigh: 0.2 cm; Reflux: 0 ms Mid Thigh: 0.2 cm; Reflux: 0 ms Distal Thigh: 0.1 cm ; Reflux: 0 ms At Knee: Not seen. Proximal Calf: 0.3 c m; Reflux: 1092 ms Mid Calf: 0.1 cm; Re flux: 0 ms Distal Calf: 0.1 cm; Reflux: [...] 11/03/24 1102 DD/ 1016 TD/TT: 11/03/24 1045 Candle Making Supervisor: US arterial duplex BI w/ INO Reviewed date:11/05/2024 08:33:42 PM Interpretation: Performing Lab: Notes/Report: [address] [address] Ultrasound Report Signed Patient: Nakul Aguilera MR#: [id number] : 1940 Acct:[id number] Age/Sex: 84 / M ADM Date: 11/05/24 Loc: HO.US Attending Dr: Kenton Casas MD Ordering Physician: Kenton Casas MD Date of Service: 11/05/24 Procedure(s): US arterial duplex BI w/ INO Accession Number(s): [id number] cc: Skinny Morales MD; Kenton Casas MD [...] OV> 11/05/24 1548 DD/ 1430 TD/TT: 11/05/24 1507 Candle Making Supervisor: [address] [address] Ultrasound Report Signed Patient: Nakul Aguilera MR#: [id number] : 1940 Acct:[id number] Age/Sex: 84 / M ADM Date: 11/05/24 Loc: HO.US Attending Dr: Kenton Casas MD Ordering Physician: Kenton Casas MD Date of Service: 11/05/24 Procedure(s): US art erial duplex BI w/ INO Accession Number(s): [id number] cc: Skinny Morales MD; Kenton Casas MD EXAMINATION: Noninvasive assessme nt of the bilateral lower extremities with ARTERIAL DUPLEX, ANKLE BRACHI AL INDICES (ABIs), and PULSE VOLUME RECORDINGS (PVRs). CLINICAL INFORMATION: Peripheral vascular disease, unspecified. TECHNIQUE: Duplex Doppler techn iques with waveform analysis and measurement of velocities in the bilateral common femoral, profunda femoris, superficial femoral, popliteal and tibial arteries were performed. Additionally, ankle pulse volume recordings, ankle pressure measurements and ank le brachial indices were obtained of the lower extremity arterial s ystem bilaterally. The study was performed only at [...] involving mostly from the popliteal to the juanjo salis pedis arteries. 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 INO [...] 11/05/24 1548 DD/ 1430 TD/TT: 11/05/24 1505 Candle Making Supervisor: CT lumbar spine wo con Reviewed date:12/28/2024 12:15:45 PM Interpretation: Performing Lab: Notes/Report: [address] [address] [address] Scan Report Signed Patient: Nakul Aguilera MR#: MM [id number] : 1940 Acct:[id number] Age/Sex: 84 / M ADM Date: 12/28/24 Loc: HO.CT Attending Dr: Skinny Morales MD Ordering Physician: Skinny Morales MD Date of Service: 12/28/24 Procedure(s): CT lumbar spine wo IV con Accession Number(s): [id number] cc: Skinny Morales MD Report Number: [id number]: Total DLP = 1214.00 mGy-cm EXAMINATION: CT LUMBAR SPINE WITHOUT CONTRAST CLINICAL INFORMATION: Spinal stenosis at L4-L5 level x-ray September 27, 2018, MRI February 26, 2018 COMPARISON: None available. TECHNIQUE: This CT examination was performed using dose optimization techniques as appropriate, variously including the following: *Automated exposure control *Adjustment of mA and/or kV according to patient size (this includes techniques or standardized protocols for targeted exams where dose is matched to indication/reason for exam; i.e. extremities or head) *Use of iterative reconstruction technique DLP: 1214 mGY*cm FINDINGS: Again seen is a lipid rich adrenal adenoma on the left measuring -0.4 Hounsfield units and 27 x 32 mm, previously 26 x 29 mm. Lung bases are clear. There were 5 con-esm-izqeqiq lumbar segments with sacralization of L5. L5 transverse processes pseudoarticulate with the sacrum. The right side demonstrates degenerative cystic change. There is 19 degrees dextroscoliosis with apex at L2, similar to the prior MRI. T12-L1: There is severe loss of disc height with vacuum phenomenon and endplate degenerative changes, increased since the prior study. There are endplate osteophytes with bulging disc resulting in moderate spinal stenosis, asymmetric toward the right subarticular zone. There is moderate facet osteoarthritis. There is moderate severe right and moderate left foraminal narrowing that appears increased. L1-L2: There is severe loss of disc height with endplate osteophytes and circumferential bulging disc that has progressed since prior examination. There is calcification within the disc likely representing pyrophosphate deposition. There is moderate facet osteoarthritis. There is moderate spinal stenosis and severe narrowing of the left subarticular zone that is stable to increased. There is mild right and severe left foraminal narrowing, increased on the left. L2-L3: There is mild loss of disc height and vacuum phenomena, slightly increased the prior. There are degenerative endplate changes and endplate osteophytes with circumferential broad-based disc bulge and pyrophosphate deposition within the disc. There is mild right and moderate to severe left facet osteoarthritis. There is mild to moderate spinal stenosis and moderate to severe left subarticular zone narrowing. There is mild right and moderate to severe left foraminal narrowing similar to the prior. L3-L4: There is mild to moderate loss of disc height, increased since the prior. There are degenerative endplate changes and subtle retrolisthesis. Circumferential disc osteophyte complex and moderate facet osteoarthritis results in mild spinal stenosis and moderate to severe subarticular zone narrowing. There is moderate right and severe left foraminal narrowing similar to the prior. L4-L5: There is mild loss of disc height and stippled pyrophosphate deposition within the disc. There is subtle grade 1 anterolisthesis. Circumferential disc osteophyte complex is noted along with moderate severe right and moderate left facet osteoarthritis. There is mild to moderate spinal stenosis with moderate right and mild left subarticular zone narrowing. There is moderate right and severe left foraminal narrowing that is likely stable to increased. L5-S1: Disc spaces preserved. There is vacuum phenomena and stable pyrophosphate deposition within the disc. There is circumferential broad-based disc bulge and moderate bilateral facet osteoarthritis. There is likely mild spinal stenosis subarticular zone narrowing is not well demonstrated but likely present bilaterally, greater on the left.. There is moderate foraminal narrowing on the right and moderate to severe narrowing of the left, similar to the prior. 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 There is degenerative cystic change and sclerosis involving the right pseudoarticulation. Moderate severe degenerative disc disease and facet osteoarthritis with underlying features of CPPD arthropathy. Degenerative changes of increased since prior examination. L1-L2: There is moderate spinal stenosis and severe narrowing of the left subarticular zone that is stable to increased. There is mild right and severe left foraminal narrowing, increased on the left. L2-L3: There is mild to moderate spinal stenosis and moderate to severe left subarticular zone narrowing. There is mild right and moderate to severe left foraminal narrowing similar to the prior. L3-L4: There is mild spinal stenosis and moderate to severe subarticular zone narrowing. There is moderate right and severe left foraminal narrowing similar to the prior. L4-L5: There is mild to moderate spinal stenosis with moderate right and mild left subarticular zone narrowing. There is moderate right and severe left foraminal narrowing that is likely stable to increased. L5-S1: There is likely mild spinal stenosis subarticular zone narrowing is not well demonstrated but likely present bilaterally, greater on the left. There is moderate foraminal narrowing on the right and moderate to severe narrowing of the left, similar to the prior. Lipid rich adrenal adenoma on the left shows continued increase in size. Electronically signed by: Jose Ramon Diamond MD 12/28/2024 11:06 AM EDT RP Dictated By: Jose Ramon Diamond MD Signed By: <Electronically signed by Jose Ramon Diamond MD in OV> 12/28/24 1106 DD/ 0939 TD/TT: 12/28/24 1021 Candle Making Supervisor: [address] [address] [address] Scan Report Signed Patient: Nkaul Aguilera MR#: [id number] : 1940 Acct:[id number] Age/Sex: 84 / M ADM Date: 12/28/24 Loc: HO.CT Attending Dr: Skinny Morales MD Ordering Physician: Skinny Morales MD Date of Service: 12/28/24 Procedure(s): CT lum bar spine wo IV con Accession Number(s): [id number] cc: Skinny Morales MD Report Number: [id number]: Total DLP = 1214.00 mGy-cm EXAMINATION: CT LUMBAR SPINE WITH OUT CONTRAST CLINICAL INFORMATION: Spinal stenosis at L 4-L5 level x-ray September 27, 2018, MRI February 26, 2018 COMPARISON: None available. TECHNIQUE: This CT examination was performed using dose optimization techniques as appropriate, various ly including the following: *Automated exposure control *Adjustment of mA an d/or kV according to patient size (this includes techniques or standardized protocols for targeted exams where dose is matched to indication/reason for exam; i.e. extremities or head) *Use of iterative reconstruction technique DLP: 1214 mGY*cm FINDINGS: Again seen is a lipi d rich adrenal adenoma on the left measuring -0.4 Hounsfield units and 27 x 32 mm, previously 26 x 29 mm. Lung bases are clear. There were 5 geh-vzh-vpadbws lumbar segments with sacralization of L5. L5 transverse proces ses pseudoarticulate with the sacrum. The right side demonstrates degenerative cystic change. There is 19 degrees dextroscoliosis with apex at L2, similar to the prior MRI. T12-L1: There is sev ere loss of disc height with vacuum phenomenon and endplate degenerativ e changes, increased since the prior study. There are endplate osteoph ytes with bulging disc resulting in moderate spinal stenosis, asymmetric toward the right subarticular zone. There is moderate facet osteoarthritis. There is moderate severe right and moderate left forami nal narrowing that appears increased. L1-L2: There is nuris re loss of disc height with endplate osteophytes and circumferential bulging disc that has progressed since prior examination. There i s calcification within the disc likely representing pyrophosphate deposi tion. There is moderate facet osteoarthritis. There is moderate sp inal stenosis and severe narrowing of the left subarticular zone th at is stable to increased. There is mild right and severe left foramina l narrowing, increased on the left. L2-L3: There is mild loss of disc height and vacuum phenomena, slightly increased the prior. There are degenerative endplate changes and endplate osteophytes with circumferential broad-based disc bulge and pyrophosphate deposi tion within the disc. There is mild right and moderate to severe l eft facet osteoarthritis. There is mild to moderate spinal stenosis and moderate to severe left subarticular zone narrowing. There is mild right and moderate to severe left foraminal narrowing similar to the prior. L3-L4: There is mild to moderate loss of disc height, increased since the prior. There are degenerative endplate changes and subtle retrolisthesis. Circumferential disc osteophyte complex and moderate facet osteoarthritis results in mild spinal stenosis and moderate to severe subarticular zone narrowing. There is moderate right and severe left foraminal narro wing similar to the prior. L4-L5: There is mild loss of disc height and stippled pyrophosphate deposition within th e disc. There is subtle grade 1 anterolisthesis. Circumferential disc osteophyte complex is noted along with moderate severe right and mod erate left facet osteoarthritis. There is mild to moderate spinal sten osis with moderate right and mild left subarticular zone narrowing. Ther e is moderate right and severe left foraminal narrowing that is li giuseppe stable to increased. L5-S1: Disc spaces preserved. There is vacuum phenomena and stable pyrophosphate deposi tion within the disc. There is circumferential broad-based disc bul ge and moderate bilateral facet osteoarthritis. There is likely mild spinal stenosis subarticular zone narrowing is not well demonstrated bu t likely present bilaterally, greater on the left.. There is moderate foraminal narrowing on the right and moderate to severe narrowing of the left, similar to the prior. C T/CT lumbar spine wo IV con IMPRESSION: There is a transitio nal L5 vertebral body with pseudoarticulation of the transverse proce sses and upper sacrum. There is degenerative cystic change and sclerosis involving the right pseudoarticulation. Moderate severe degenerative disc disease and facet osteoarthritis with underlying features of CPPD arthropathy. Degenerative changes of increased since prio r examination. L1-L2: There is mode rate spinal stenosis and severe narrowing of the left subarticular zo ne that is stable to increased. There is mild right and severe left fora titus narrowing, increased on the left. L2-L3: There is mild to moderate spinal stenosis and moderate to severe left subarticular zo ne narrowing. There is mild right and moderate to severe left foramina l narrowing similar to the prior. L3-L4: There is mild spinal stenosis and moderate to severe subarticular zone narrowing. There is moderate right and severe left foraminal narrowing similar to the prior. L4-L5: There is mild to moderate spinal stenosis with moderate right and mild left subarticular zone narrowing. There is moderate right and severe left foramina l narrowing that is likely stable to increased. L5-S1: There is like ly mild spinal stenosis subarticular zone narrowing is not well demonstr ated but likely present bilaterally, greater on the left. There is moder ate foraminal narrowing on the right and moderate to severe narrowing of the left, similar to the prior. Lipid rich adrenal adenoma on the left shows continued increase in size. Electronically ashley d by: Jose Ramon Diamond MD 12/28/2024 11:06 AM EDT Dictated By: Jose Ramon Diamond MD Signed By: <Electronically signed by Jose Ramon Diamond MD in OV> 12/28/24 1106 DD/ 0939 TD/TT: 12/28/24 1021 Candle Making Supervisor: Remy Lopez Reviewed date:01/14/2025 01:01:15 PM Interpretation: Performing Lab:[facility], [address] [place] [id number] Notes/Report: Remy Lopez See Note Specimen held untested for 24 hours; Call to request Chemistry testing. Reason For Referral Reason balance problems Diagnosis [...] had vaccine at [facility] on [email or web address], [place]. Fluarix Quadrivalent IM Intramuscular 01/21/2018 Administe red [...] High Dose IM Intramuscular 01/16/2024 Administer ed Influenza High Dose IM Intramuscular 01/14/2025 Administer ed Flu Vaccine Unknown 01/26/2014 Pending [...] W/U Status Risk Notes Problem Venous thrombosis (335307844) Venous thrombosis (453.9) Active confirmed Problem 09390181 Hematuria (R31.9) Active confirmed Problem 79293553 Anxiety (F41.9) Active confirmed Problem 617513998 Lumbar disc dise ase (M51.9) Active confirmed Problem 79511578 RBBB (I45.10) Active confirmed Problem 281993443 Cervical disc di sease (M50.90) Active confirmed Problem 024255377 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) Active confirmed Problem 451493102 Peripheral vascu lar disease (I73.9) Active confirmed Problem 77243483 Unsteady gait (R26.81) Active confirme d Problem 540896604 Pure hypercholesterolemia (E78.00) Active confirmed Problem 998688221651793 Atherosclerosis of both carotid arteries (I65.23) Active confirmed Problem Problem with balance (595254148) Balance problems (R26.89) Active confirmed Vital Signs Blood pressure diastolic 64 mm Hg 11/30/2024 Height 72 in 11/30/2024 Blood pressure systolic 122 mm Hg 11/30/2024 Weight 234 lbs 11/30/2024 BMI 31.73 kg/m2 11/30/2024 Encounters Encounter Location Date Provider Diagnosis Skinny Morales MD [address] [place] [address] [id number] 01/16/2024 Skinny Morales Pure hypercholestero lemia E78.00 and Encounter for immunization Z23 Skinny Morales MD [address] [place] [address] [id number] 07/13/2024 Skinny Morales Pure hypercholestero lemia E78.00 Skinny Morales MD [address] [place] [address] [id number] 01/14/2025 Skinny Morales Pure hypercholestero lemia E78.00 and Encounter for administration of vaccine Z23 Skinny Morales MD [address] [place] [address] [id number] 01/23/2024 Skinny Morales Pure hypercholestero lemia E78.00 Skinny Morales MD [address] [place] [address] [id number] 07/20/2024 Skinny Morales Anxiety F41.9 ; Unst jennifer gait R26.81 ; Foot drop, left M21.372 and Pure hypercholesterolemia E78.00 Skinny Morales MD [address] [place] [id number] 09/29/2024 Skinny Morales Balance problems R26 .89 ; Peripheral vascular disease I73.9 and Adrenal adenoma, unspecified laterality D35.00 Skinny Morales MD [address] [place] [address] [id number] 11/30/2024 Skinny Morales Spinal stenosis at L 4-L5 level M48.061 Skinny Morales MD [address] [place] [address] [id number] 09/22/2024 Skinny Morales Assessments Encounter Date Diagnosis (ICD Code) Assessment Notes Treatment Notes Treatment Clinical Notes Section Notes 01/16/2024 Pure hypercholesterolemia (ICD-10 - E78.00) 01/16/2024 Encounter for immunization (ICD-10 - Z23) 07/13/2024 Pure hypercholesterolemia (ICD-10 - E78.00) 01/14/2025 Pure hypercholesterolemia (ICD-10 - E78.00) 01/14/2025 Encounter for administration of vaccine (ICD-10 - Z23) 01/23/2024 Pure hypercholesterolemia (ICD-10 - E78.00) doing [...] - R26.89) will refer to neurology at [facility] 09/29/2024 Peripheral vascular disease (ICD-10 - I73.9) to see dr casas this weeki 11/30/2024 Spinal stenosis at L4-L5 level (ICD-10 - M48.061) pending diagnostic testing, order faxed to [facility] CS dept 07/20/2024 Foot drop, left (ICD [...] 01/16/2022 Next Appt Details Provider Name:Skinny jansen, 01/21/2025 01:45:00 PM, [address] [place] [address], [address], [place], [place], [phone], Provider Name:Skinny jansen, 07/16/2025 07:30:00 AM, [address] [place] [address], [address], [place], [place], [phone], Provider Name:Skinny beachr, 07/23/2025 01:00:00 PM, [address], [address], [place], [id number], Insurance Providers Payer Name Payer Address Payer Phone Subscriber Number Group Number Insured Name Patient Relationship to Insured Coverage Start Date Coverage End Date [employer] [address] [place] [id number] Self - patient is the insured MEDEX BCBS OF [facility] [id number] [place] [id number] Self - patient is the insured Medical (General) History Medical History History ICD Code disc disease colonoscopy due in 2011; col onoscopy 07/28/2013 hyperplastic polyp no further colonoscopy hematuria eval 2016 Inguinal adenopathy 785.6
--- OUTSIDE RECORDS SUMMARY | 2025-01-14 16:45 | XMS_ITS | Clinical Summary ---
Author Organization [facility] Address [address] [place] [address] Phone Care Team Providers Care Process Area Supervisor Name Role Phone Adonay Morales MD Primary Care Provid er Social History Tobacco Use Types Packs/Day Years Used Date Smoking Tobacco: Never Assessed Education Answer Date Recorded Are you interested in more education? Not on medhat e 08/31/2022 Are you concerned about learning? Not on file 08/31/2022 No 08/31/2022 No 08/31/2022 Digital Access Answer Date Recorded No 09/29/2022 No 09/29/2022 No 09/29/2022 Reliable internet access at home? Not on file 09/29/2022 Device with a working camera? Not on file Sex and Gender Information Value Date Recorded Sex Assigned at Not on file Legal Sex Male 10:11 PM EDT Gender Identity Not on file Sexual Orientation Not on file Last Filed Vital Signs Vital Sign Reading Time Taken Comments Blood Pressure 204/100 07/29/2019 10:45 AM EDT Pulse - - Temperature - - Respiratory Rate - - Oxygen Saturation - - Inhaled Oxygen Concentration - - Weight - - Height - - Body Mass Index - - Plan of Treatment Health Maintenance Due Date Last Done Comments DEPRESSION SCREENING 1952 ZOSTER VACCINES (2 of 3) 06/21/2015 04/26/2015 RSV VACCINE (1 - 1-dose 75+ series) 2016 PNEUMOCOCCAL VACCINES (50+ years) (2 of 2 - PCV) 06/18/2018 06/18/2017 INFLUENZA VACCINE (#1) 2024 0, 01/19/2019, 01/21/2018, Additional history exists COVID-19 VACCINE ( season) 2025 07/05/2020, 06/14/2020 Adult Td,Tdap Booster 12/27/2027 12/26/2017 HEPATITIS A VACCINES Aged Out No long er eligible based on patient's age to complete this topic HIB VACCINES Aged Out No longer eligi ble based on patient's age to complete this topic MENINGOCOCCAL VACCINES (ACWY) Aged Out No longer eligible based on patient's age to complete this topic MENINGOCOCCAL VACCINES (B) Aged Out N o longer eligible based on patient's age to complete this topic Medical Devices Not on file Insurance [employer] SUPPLEMENT MEDICARE PART A & B [employer] SUPPLEMENT MEDICARE PART A & [place] [address] [place] [address] MEDEX SUPPLEMENT MEDICARE PART A & B [employer] SUPPLEMENT MEDICARE PART A & B [employer] SUPPLEMENT MEDICARE PART A & B [employer] SUPPLEMENT MEDICARE PART A & B [employer] SUPPLEMENT MEDICARE PART A & B [place] [email or web address] MEDEX SUPPLEMENT MEDICARE PART A & B [employer] SUPPLEMENT MEDICARE PART A & B Care Teams Process Area Supervisor Relationship Specialty Start Date End Date Adonay Morales MD [address] [place] [address] PCP - General Internal Medicine 07/29/19 Additional Source Comments The information contained in this document represents components of the legal health record. It is not the complete legal health record.[facility]
== END 2025-01-14 12:29 | disposition home or self-care (01) ==
LOC: HO.LNP 12:28
PROVIDERS: Visit Provider Internal Medicine
DX: E78.00 Pure hypercholesterolemia, unspecified (principal)
CPT/HCPCS: 80061; 80076

== ENCOUNTER 2025-01-28 10:50 | Outpatient (AMB) | payer MEDICARE, SELFPAY ==
--- NOTE | 2025-01-28 10:55 | A.SPINEOV_ITS ---
Vital Signs 01/28/25 10:58 Height 6 ft 2 in Weight 230 lb BMI 29.5 Intake Visit Reasons: LBP Intake Note: Mr. Aguilera is here today c/o Low back pain difficulty walking. 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 oMrales, Thank you for referring Nakul to our office today. He is a pleasant 84-year-old male who comes in today for evaluation of locking/balance issues. He reports this has been ongoing for the past 10 years or so. He denies any issues with back pain/leg pain. He does report that he used to have back pain, however had an L3-4, L4-[address] Child about 10 years ago. Unfortunately, it sounds like the patient developed a right-sided footdrop after surgery. Dr. Child did prescribe him an AFO brace at one of his postop visits, but it sounds like the device was too bulky for the patient and did not fit him properly, so he didn't really use it much, despite it being helpful for ambulation. He does report a history of falls, which primarily occur on uneven surfaces. He most recently fell in his backyard over the summer in November, resulting in an emergency department visit. He reports that he has been to physical therapy multiple times in the past for this but did not find it particularly helpful for him. He has not attempted any cortisone injections in his lumbar spine, and takes no medications for pain/low back concerns at home. When discussing his balance issues he states that he will lose balance randomly throughout the day, usually when he is attempting to walk. He denies any issues with dexterity, fine motor movement, or incontinence/bowel issues. PMH: Hyperlipidemia, history of DVT, anxiety, history of right bundle branch block, peripheral vascular disease. Hx L3-5 lumbar decompression 10 years ago. Social hx: The patient does not smoke, reports no substance use. Medications: Aspirin, paroxetine, atorvastatin, furosemide, albuterol. Allergies: NKDA Physical exam: The patient has a notable right-sided footdrop, which I would rate as a 2/5 strength with dorsiflexion / EHL on the right. The rest of his upper and lower extremity strength is 5/5. He ambulates with a non spastic nonantalgic gait, utilizing a cane for ambulation to brace himself on the right. He does not report any sensational deficits to light touch on examination. His reflexes are 1+ hypoactive bilaterally in the patella but 2+ normal elsewhere. (-) bilateral straight leg raise, (-) Irvin's, (-) clonus. Imaging review: CT scan of the lumbar spine shows degenerative dextroscoliosis with apex near L3. There is severe degenerative disc disease seen diffusely throughout the lumbar spine with near complete loss of disc height throughout. There is osteophyte bridging of the lateral aspect of the vertebral bodies, and varying degrees of nerve compression seen throughout, which would best be evaluated by an updated MRI. I did review his old MRI from 2018 which does show fairly severe nerve compression throughout the lumbar spine Impression: Nakul is a pleasant 84-year-old male who comes in today for evaluation of primarily balance/walking issues that have been ongoing since his last spine surgery about 10 years ago. The neurosurgeon who performed his surgery has since retired, therefore he sought evaluation/management by our office today. The patient does have quite a bit of degeneration and nerve compression in the lumbar spine, however in the absence of low back pain or shooting radicular pains into his lower extremities, I do not believe that surgery would be particularly beneficial for him. I think that attempting to help the patient with his walking/balance issues by having a custom fitted ankle-foot orthotic brace ordered would be the best bet for this patient. I will reach out to our colleagues at [facility], and have them contact the patient to be fitted for AFO brace. Thank you for allowing us to care for your patient. The total time spent with this visit with this patient was 45 minutes reviewing history, physical exam, MRI imaging review, and implementation of treatment plan or further diagnostic testing Jj Barone MD,PhD [facility] Coding Level of Care Code New Pt Level 4 (34293) Diagnoses Difficulty balancing R29.818
[2025-01-28 10:58] VITALS: BMI 29.5
== END 2025-01-28 11:44 | disposition home or self-care (01) ==
LOC: HO.HNS 10:51
PROVIDERS: PCP Internal Medicine; Referring Provider Internal Medicine; Visit Provider Physician Assistant
DX: R29.818 Other symptoms and signs involving the nervous system (principal)
CPT/HCPCS: 99204

== ENCOUNTER → 2025-01-28 10:50 | Outpatient (BNVA) | payer MEDICARE, SELFPAY | PROVIDERS: PCP Internal Medicine; Referring Provider Internal Medicine; Visit Provider Physician Assistant | DX: R29.818 Other symptoms and signs involving the nervous system (principal); M21.371 Foot drop, right foot | CPT/HCPCS: 99202 ==